=== PATIENT | male | born 1965 | race American Indian/Alaskan Native ===

== ENCOUNTER 2019-01-04 11:54 | Emergency (ER) | payer MEDICAID ==
[2019-01-04 13:05] VITALS: BP 129/93
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
== END 2019-01-04 13:35 | disposition home or self-care (01) ==
LOC: ED 11:54
DX: I10 Essential (primary) hypertension (principal); F17.200 Nicotine dependence, unspecified, uncomplicated; Z76.0 Encounter for issue of repeat prescription; Z79.82 Long term (current) use of aspirin; Z79.899 Other long term (current) drug therapy
CPT/HCPCS: 99282

== ENCOUNTER 2019-01-16 10:25 | Emergency (ER) | payer MEDICAID ==
[2019-01-16 10:35] VITALS: BP 146/97
--- NOTE | 2019-01-16 12:54 | Emergency Department Report ---
Chief Complaint: Extremity Injury, Upper Stated Complaint: ARM BROKEN LEFT Time Seen by Provider: 01/16/19 12:53 - HPI History of Present Illness: Mr. Gunter is a very pleasant 53 year old male with history of CVA, hypertension, cerebral aneurysm who presents with left upper extremity swelling. He explained to me that he had broken his left arm in 2 places. He has a sugar tong splint in place on my examination. He desires for the splint to be removed or replaced. I strongly encouraged him to follow up with our orthopedic surgeon this upcoming week. Distally his left hand is neurologically intact median ulnar radial nerve is intact. 2+ radial pulse. Hand is Soft without swelling. He moves the hand fluidly. Medical screening exam performed. He was discharged home. No evidence of acute emergent condition at this time. - Exam Vital Signs: Vital Signs 01/16/19 10:33 Temperature 98.5 F Pulse Rate 72 Respiratory 18 Rate Blood Pressure 146/97 O2 Sat by Pulse 99 Oximetry MSE screening note: Focused history and physical exam performed. Due to findings the following was ordered: ED Disposition for MSE Clinical Impression: Encounter for medical screening examination Disposition: Z-07 MED SCREENING EXAM-LEFT Is pt being admited?: No Does the pt Need Aspirin: No Condition: Stable Additional Instructions: Please see our orthopedic surgeon this upcoming week. You will need evaluation by a bone expert the cast can be removed. Referrals: VIET MARTINEZ MD [Staff Physician] - 3-5 Days
== END 2019-01-16 13:05 | disposition left against medical advice (07) ==
LOC: ED 10:25
DX: M79.89 Other specified soft tissue disorders (principal)
CPT/HCPCS: 99281

== ENCOUNTER 2019-04-17 10:12 | Inpatient (IN) | payer MEDICAID ==
[2019-04-17] MEDS ORDERED: SODIUM CHLORIDE 0.9% 1000 ML 1,000 ML IV ONE ×2 (10:42→11:58)
--- NOTE | 2019-04-17 10:48 | Emergency Department Report ---
ED Neuro Deficit HPI - General Chief Complaint: Neuro Symptoms/Deficit Stated Complaint: POSS CVA Time Seen by Provider: 04/17/19 10:35 Source: EMS Mode of arrival: Ambulatory Limitations: No Limitations - History of Present Illness Initial Comments: [facility] Date of Service: 04/17/2019 10:06:32 Impression: RO Acute Ischemic Stroke Comments: acute onset decreased LOC, slurred speech, and dysconjugate gaze - concerning for brainstem infarct. Outside time window for IV tpa. Recommend CTA head/neck. Mechanism of Stroke: Possible Thromboembolic Possible Cardioembolic Small Vessel Disease Metrics: Last Known Well: 04/12/2019 12:00:00 [employer] Notification Time: 04/17/2019 10:06:00 Arrival Time: 04/17/2019 10:12:00 Stamp Time: 04/17/2019 10:06:32 Time First Login Attempt: 04/17/2019 10:10:57 Video Start Time: 04/17/2019 10:10:57 Symptoms: confusion NIHSS Start Assessment Time: 04/17/2019 10:26:49 Patient is not a candidate for tPA. Patient was not deemed candidate for tPA thrombolytics because of Last Well Known Above 4.5 Hours. Video End Time: 04/17/2019 10:43:55 CT head showed no acute hemorrhage or acute core infarct. CT head was reviewed. Lower Likelihood of Large Vessel Occlusion but Following Stat Studies are Recommended CTA Head and Neck. ED Physician notified of diagnostic impression and management plan on 04/17/2019 10:43:55 Our recommendations are outlined below. Recommendations: Activate Stroke Protocol Admission/Order Set Stroke/Telemetry Floor Neuro Checks Bedside Swallow Eval DVT Prophylaxis IV Fluids, Normal Saline Head of Bed Below 30 Degrees Euglycemia and Avoid Hyperthermia (PRN Acetaminophen) start ASA if CT head Lipid Panel to Be Obtained, if Not Done in the Last Three Months Therapies: Physical Therapy, Occupational Therapy, Speech Therapy Assessment When Applicable Dysphaghia Screen: Swallow Evaluation, Bedside NPO Until Swallow Evaluation DVT prophylaxis: Lovenox or LMW Heparin Disposition: Follow up with Teleneurology Follow up Sign Out: Discussed with Emergency Department Provider History of Present Illness: Patient is a 54 year old Male. Patient was brought by EMS for symptoms of confusion 54 yo man with acute onset confusion and slurred speech noted by family. He was LSN 4-5 days ago and has been off balance since then. BG was 94. No focal weakness of his limbs. He has been off balance since yesterday and fell last night. He woke up at 0700 and was still off balance. He takes no blood thinners. He has a dysconjugate gaze from a previous stroke last year. CT head showed no acute hemorrhage or acute core infarct. CT head was reviewed. Last seen normal was within 4.5 hours. There is no history of hemorrhagic complications or intracranial hemorrhage. There is no history of Recent Anticoagulants. There is no history of recent major surgery. There is no history of recent stroke. Examination: 1A: Level of Consciousness - Requires repeated stimulation to arouse + 2 1B: Ask Month and Age - 1 Question Right + 1 1C: Blink Eyes & Squeeze Hands - Performs Both Tasks + 0 2: Test Horizontal Extraocular Movements - Normal + 0 3: Test Visual Tran - No Visual Loss + 0 4: Test Facial Palsy (Use Grimace if Obtunded) - Normal symmetry + 0 5A: Test Left Arm Motor Drift - No Drift for 10 Seconds + 0 5B: Test Right Arm Motor Drift - Drift, but doesn't hit bed + 1 6A: Test Left Leg Motor Drift - Drift, but doesn't hit bed + 1 6B: Test Right Leg Motor Drift - No Drift for 5 Seconds + 0 7: Test Limb Ataxia (FNF/Heel-Andrade) - No Ataxia + 0 8: Test Sensation - Normal; No sensory loss + 0 9: Test Language/Aphasia - Mild-Moderate Aphasia: Some Obvious Changes, Without Significant Limitation + 1 10: Test Dysarthria - Severe Dysarthria: Unintelligble Slurring or Out of Proportion to Aphasia + 2 11: Test Extinction/Inattention - No abnormality + 0 NIHSS Score: 8 Patient was informed the Neurology Consult would happen via TeleHealth consult by way of interactive audio and video telecommunications and consented to receiving care in this manner. Due to the immediate potential for life-threatening deterioration due to underlying acute neurologic illness, I spent 35 minutes providing critical care. This time includes time for face to face visit via telemedicine, review of medical records, imaging studies and discussion of findings with providers, the patient and/or family. Dr Jona Lemos [employer] Case [id number] - Related Data Home Medications: Home Medications Medication Instructions Recorded Confirmed Last Taken Aspirin [Adult Low Dose Aspirin EC] 81 mg PO DAILY 10/06/15 10/06/15 Unknown Lisinopril [Zestril] 40 mg PO DAILY 10/06/15 10/06/15 Unknown QUEtiapine [SEROquel] 200 mg PO QHS 10/06/15 10/06/15 Unknown traZODone [Desyrel] 50 mg PO QHS 10/06/15 10/06/15 Unknown Previous Rx's Medication Instructions Recorded Last Taken Type Famotidine [Pepcid] 20 mg PO BID #30 tablet 10/08/15 Unknown Rx Folic Acid [Folvite] 1 mg PO QDAY #30 tablet 10/08/15 Unknown Rx Nicotine [Habitrol] 21 mg TD QDAY@2200 #30 patch 10/08/15 Unknown Rx Thiamine [Vitamin B-1] 100 mg PO QDAY #30 tablet 10/08/15 Unknown Rx amLODIPine 10 mg PO QDAY #30 tablet 10/08/15 Unknown Rx cloNIDine [Catapres] 0.1 mg PO Q8H #90 tablet 10/08/15 Unknown Rx hydrALAZINE [Apresoline TAB] 50 mg PO Q8HR #90 tablet 10/08/15 Unknown Rx Aspirin EC [Halfprin EC] 81 mg PO QDAY #30 tablet. 01/04/19 Unknown Rx Chlorthalidone [Thalitone] 25 mg PO QDAY #30 tablet 01/04/19 Unknown Rx amLODIPine 10 mg PO DAILY #30 tab 01/04/19 Unknown Rx carvediloL [Coreg] 25 mg PO BID #60 tablet 01/04/19 Unknown Rx lisinopriL [Zestril TAB] 40 mg PO QDAY #30 tablet 01/04/19 Unknown Rx Allergies/Adverse Reactions: Allergies Allergy/AdvReac Type Severity Reaction Status Date / Time No Known Allergies Allergy Unverified 10/04/15 15:46 ED Review of Systems ROS: Stated complaint: POSS CVA Other details as noted in HPI ED Past Medical Hx - Past Medical History Hx Hypertension: Yes Hx CVA: Yes Additional medical history: Cerebral Aneurysm - Social History Smoking Status: Current Every Day Smoker Substance Use Type: None - Medications Home Medications: Home Medications Medication Instructions Recorded Confirmed Last Taken Type Aspirin [Adult Low Dose Aspirin EC] 81 mg PO DAILY 10/06/15 10/06/15 Unknown History Lisinopril [Zestril] 40 mg PO DAILY 10/06/15 10/06/15 Unknown History QUEtiapine [SEROquel] 200 mg PO QHS 10/06/15 10/06/15 Unknown History traZODone [Desyrel] 50 mg PO QHS 10/06/15 10/06/15 Unknown History Famotidine [Pepcid] 20 mg PO BID #30 tablet 10/08/15 Unknown Rx Folic Acid [Folvite] 1 mg PO QDAY #30 tablet 10/08/15 Unknown Rx Nicotine [Habitrol] 21 mg TD QDAY@2200 #30 patch 10/08/15 Unknown Rx Thiamine [Vitamin B-1] 100 mg PO QDAY #30 tablet 10/08/15 Unknown Rx amLODIPine 10 mg PO QDAY #30 tablet 10/08/15 Unknown Rx cloNIDine [Catapres] 0.1 mg PO Q8H #90 tablet 10/08/15 Unknown Rx hydrALAZINE [Apresoline TAB] 50 mg PO Q8HR #90 tablet 10/08/15 Unknown Rx Aspirin EC [Halfprin EC] 81 mg PO QDAY #30 tablet. 01/04/19 Unknown Rx Chlorthalidone [Thalitone] 25 mg PO QDAY #30 tablet 01/04/19 Unknown Rx amLODIPine 10 mg PO DAILY #30 tab 01/04/19 Unknown Rx carvediloL [Coreg] 25 mg PO BID #60 tablet 01/04/19 Unknown Rx lisinopriL [Zestril TAB] 40 mg PO QDAY #30 tablet 01/04/19 Unknown Rx ED Neuro Physical Exam - General Limitations: No Limitations Suspected Stroke: Yes - NIHSS Assessment Interval: Baseline 1a. Level of Consciousness: resp stimuli/obtunded 1b. LOC Questions: answers 1 question correctly 1c. LOC Commands: performs tasks correctly 2. Best Gaze: normal 3. Visual: no visual loss 4. Facial Palsy: normal symmetrical movement 5b. Motor Arm Right: drift 5a. Motor Arm Left: drift 6a. Motor Leg Left: no drift 6b. Motor Leg Right: no drift 7. Limb Ataxia: absent 8. Sensory: normal 9. Best Language: no aphasia 10. Dysarthria: severe dysarthria 11. Extinction/Inattention: no abnormality Total Score: 7 Stroke Severity: Moderate Stroke Critical care attestation.: If time is entered above; I have spent that time in minutes in the direct care of this critically ill patient, excluding procedure time. ED Disposition Clinical Impression: Stroke, Altered mental status Disposition: DC-09 OP ADMIT IP TO THIS HOSP Is pt being admited?: Yes Condition: Stable
[2019-04-17 10:59] LABS: Basophils % (Auto) 0.2 % (0.0-1.8); Eosinophils # (Auto) 0.4 K/mm3 (0.0-0.4); Eosinophils % (Auto) 5.6 % (0.0-4.3); Hematocrit 42.3 % (35.5-45.6); Hemoglobin 13.9 gm/dl (11.8-15.2); Lymphocytes # (Auto) 3.2 K/mm3 (1.2-5.4); Lymphocytes % (Auto) 50.3 % (13.4-35.0); Mean Corpuscular HGB Conc 33 % (32-34); Mean Corpuscular Volume 86 fl (84-94); Monocytes # (Auto) 0.6 K/mm3 (0.0-0.8); Monocytes % (Auto) 8.7 % (0.0-7.3); Platelet Count 201 K/mm3 (140-440); Red Blood Count 4.92 M/mm3 (3.65-5.03); Red Cell Distribution Width 15.6 % (13.2-15.2)
--- NOTE | 2019-04-17 11:06 | Cat Scan Report ---
CT HEAD WITHOUT CONTRAST HISTORY: MAIN: CODE STROKE CALL [phone] COMPARISON: None TECHNIQUE: CT imaging of the head was performed in the axial, sagittal, and coronal projections and bone algori thm in axial projection in the soft tissue algorithm. All CT scans at this location are performed using CT dose reduction for ALARA by means of automated e xposure control. CONTRAST: None. FINDINGS: Cerebral and Cerebellar Hemispheres: Mild diffuse cerebral atrophy is present. Deep white matter dise ase is noted. No evidence of mass or mass effect. No midline shift. No acute hemorrhage. No acute cortical infarction. No extra-axial fluid collection. Ventricles: Normal in size and configuration for age. Osseous Structures: No significant abnormality. Visualized Paranasal Sinuses: No significant abnormality. Additional Findings: None IMPRESSION: 1. No acute intracranial abnormality. NOTE: Acute infarct may not be visible by noncontrast CT. CRITICAL RESULT: code stroke Time of Discovery: 1035 hours Time of Communication: 1045 hours Licensed Practitioner Receiving Report: Dr. Whatley was notified of these findings personally by Dr. Alis baires Read Back Performed: Yes. Signer Name: Roverto Gutierrez MD Signed: 04/17/2019 11:01 AM Workstation Name: [id number]
[2019-04-17 11:12] LABS: INR 1.06 (0.87-1.13); Partial Thromboplastin Time 30.2 Sec. (24.2-36.6)
[2019-04-17 11:23] LABS: BUN/Creatinine Ratio 12; Blood Urea Nitrogen 40 mg/dL (9-20); Calcium 9.2 mg/dL (8.4-10.2); Hemolysis Index 16
[2019-04-17 11:27] LABS: Alanine Aminotransferase 8 units/L (7-56); Albumin 4.3 g/dL (3.9-5)
[2019-04-17 11:36] LABS: Bilirubin,Direct < 0.2 mg/dL (0-0.2)
--- NOTE | 2019-04-17 11:54 | Cat Scan Report ---
CTA neck without and with intravenous contrast material CLINICAL HISTORY: slurred speech TECHNIQUE: Following acquisition of a timing bolus 0.625 mm thick contiguous axial scans were obtained from aort ic arch to the skull base during rapid bolus intravenous contrast infusion. In addition to evaluation of axial source images multiplanar reconstructions were produced and reviewed for this report. 3 sanya ne MIP reconstructions were produced and reviewed. FINDINGS: Aorta: Visualized portions of the thoracic aorta have an unremarkable appearance. No abnormalities ar e seen at the origins of the great vessels. Brachiocephalic artery and right subclavian artery have a n unremarkable appearance. Left subclavian artery has an unremarkable appearance. Right carotid artery: Right common carotid artery has a normal appearance. Evaluation of the right ca rotid bifurcation reveals no indication of hemodynamically significant stenosis. Moderate soft plaque is present along the proximal R ICA. There is no indication of hemodynamically significant stenosis. There is no evidence of ulceration. Mid and distal segments of the R ICA have an unremarkable appear ance. Left carotid artery: Common carotid artery has an unremarkable appearance. Evaluation of the carotid bifurcation reveals no abnormality. Cervical portions of the LICA have an unremarkable appearance. Vertebral arteries: Mild dominance the right vertebral artery is noted. Both vertebral arteries contr ibute to the basilar artery origin. Calcified atherosclerotic plaque is observed along the course of the V4 segments of both vertebral arteries. The degree of stenosis, if any, is determined utilizing NASCET like criteria. In this case there is no indication of hemodynamically significant stenosis at the carotid bifurcations or elsewhere. Evaluation of the nonvascular soft tissue structures reveal no abnormality. There is no indication of cervical lymphadenopathy. No abnormalities are seen along the course of the airway. Visualized porti ons of the parotid glands and the submandibular salivary glands have a normal appearance. Thyroid gla nd has a normal appearance. Evaluation of the lung apices reveals no evidence of lung nodule or infil trate. Evaluation of the cervical spine is remarkable for cervical spondylosis. There is no indicatio n of central canal stenosis. IMPRESSION: 1. No indication of hemodynamically significant stenosis at the carotid bifurcations or elsewhere. 2. Soft atherosclerotic plaque is present at the right carotid bifurcation and along the proximal asp ect of the R ICA. No indication of ulceration or hemodynamically significant stenosis. Contrast dose report: Omnipaque 350: 100 ml, administered intravenously All CT examinations performed at this facility utilize modulated dose reduction, iterative reconstruc tion or weight-based dosing, as appropriate, to obtain a radiation dose which is as low as can reason ably be achieved. Signer Name: Rj Allen MD Signed: 04/17/2019 11:50 AM Workstation Name: [id number]
--- NOTE | 2019-04-17 11:59 | Cat Scan Report ---
CTA head with intravenous contrast CLINICAL HISTORY: slurred speech TECHNIQUE: 0.625 mm thick contiguous axial scans were obtained from the skull base to the skull vertex during ra pid bolus administration of intravenous contrast material. Multiplanar reconstructions were produced in the coronal and sagittal planes. In addition 3 plane MIP instructions were produced and reviewed f or this report. The axial source images and reconstructed images were reviewed for this report. All CT scans at this location are performed using CT dose reduction for ALARA by means of automated e xposure control. FINDINGS: Calcified atherosclerotic plaque is seen along the course of the cavernous segments of both internal carotid arteries. Similar findings are present at the V4 segments of the vertebral arteries. There is no indication of hemodynamically significant stenosis. The caliber of the intracranial vessels is normal throughout. There is no indication of intracranial stenosis or large vessel occlusion. There is no indication of vasculitis. There is no evidence of aneurysm or other vascular malformation. IMPRESSION: No indication of intracranial stenosis or large vessel occlusion. CONTRAST DOSE REPORT: Omnipaque 350: 100 ml administered intravenously. Signer Name: Rj Allen MD Signed: 04/17/2019 11:55 AM Workstation Name: [email or web address]
--- NOTE | 2019-04-17 12:15 | History and Physical Report ---
History of Present Illness Chief complaint: I think he had a stroke History of present illness: 54 YO Male with HTN, Depression, CVA, Nicotine Dependence, ETOH Dependence presents to the ED for evaluation. Patient was in his usual state of health upon waking from sleep this morning around 0800 hrs. Patient is lethargic and unable to provide detailed history. Patient history provided by family who is at bedside during exam and interview. As per family report- the patient was sitting on the porch with his sister when he developed an acute onset of confusion, as well as unintelligible speech with subsequent loss of consciousness and inability to ambulate. EMS was notified and upon arrival the patient was found to be in distress with a neurologic deficit. A code stroke was called and the patient was transported to [facility] for further evaluation and care. Patient seen and evaluated in the emergency department. Lab and imaging studies reviewed. Patient found to have clinical findings consistent with CVA a s well as acute kidney injury, and metabolic acidosis. Patient admitted to medical floor and initiated on CVA protocol for further evaluation and treatment due to increased risk of decompensation. Tele-neurology was consulted. Nephrology team was consulted in ED as well. No reports of fever, chills, chest pain, palpitations, trauma, nausea vomiting diarrhea, productive cough, known ill contacts, headaches, or recent ill contacts. Prior admission on 10/04/2015 reviewed. All medication listed at time of admission have been reconciled. Past History Past Medical History: hypertension, stroke, other (See HPI) Past Surgical History: No surgical history, Other (Reviewed) Social history: smoking, alcohol abuse Family history: hypertension Medications and Allergies Allergies Allergy/AdvReac Type Severity Reaction Status Date / Time No Known Allergies Allergy Unverified 10/04/15 15:46 Home Medications Medication Instructions Recorded Confirmed Last Taken Type Aspirin [Adult Low Dose Aspirin EC] 81 mg PO DAILY 10/06/15 04/17/19 Unknown History Lisinopril [Zestril] 40 mg PO DAILY 10/06/15 04/17/19 Unknown History QUEtiapine [SEROquel] 200 mg PO QHS 10/06/15 04/17/19 Unknown History Famotidine [Pepcid] 20 mg PO BID #30 tablet 10/08/15 04/17/19 Unknown Rx Nicotine [Habitrol] 21 mg TD QDAY@2200 #30 patch 10/08/15 04/17/19 Unknown Rx amLODIPine 10 mg PO QDAY #30 tablet 10/08/15 04/17/19 Unknown Rx cloNIDine [Catapres] 0.1 mg PO Q8H #90 tablet 10/08/15 04/17/19 Unknown Rx Chlorthalidone [Thalitone] 25 mg PO QDAY #30 tablet 01/04/19 04/17/19 Unknown Rx carvediloL [Coreg] 25 mg PO BID #60 tablet 01/04/19 04/17/19 Unknown Rx lisinopriL [Zestril TAB] 40 mg PO QDAY #30 tablet 01/04/19 04/17/19 Unknown Rx Active Meds: Active Medications Sodium Chloride (Nacl 0.9% 1000 Ml) 1,000 mls @ 999 mls/hr IV BOLUS ONE Stop: 04/17/19 12:58 Review of Systems ROS unobtainable: due to mental status Exam - Constitutional Vitals: Temp Pulse Resp BP Pulse Ox 97.4 F L 59 L 12 104/67 92 04/17/19 10:56 04/17/19 10:56 04/17/19 10:56 04/17/19 10:56 04/17/19 10:56 General appearance: Present: mild distress, obese - EENT Eyes: Present: miosis ENT: hearing intact, clear oral mucosa - Neck Neck: Present: supple, normal ROM - Respiratory Respiratory effort: normal Respiratory: bilateral: CTA - Cardiovascular Heart Sounds: Present: S1 & S2. Absent: rub, click - Extremities Extremities: pulses symmetrical, No edema Peripheral Pulses: within normal limits - Abdominal General gastrointestinal: Present: soft, non-tender, non-distended, normal bowel sounds Male genitourinary: Present: normal - Integumentary Integumentary: Present: clear, warm, dry - Musculoskeletal Musculoskeletal: generalized weakness - Psychiatric Psychiatric: no appropriate mood/affect, no intact judgment & insight, no memory intact - Neurologic Neurologic: moves all extremities, no gait normal Results - Labs CBC & Chem 7: 04/17/19 10:35 04/17/19 10:35 Labs: Abnormal lab results 04/17/19 04/17/19 04/17/19 Range/Units 10:35 10:35 10:35 RDW 15.6 H (13.2-15.2) % Lymph % (Auto) 50.3 H (13.4-35.0) % [place] % (Auto) 8.7 H (0.0-7.3) % Eos % (Auto) 5.6 H (0.0-4.3) % Seg Neutrophils % 35.2 L (40.0-70.0) % Thrombin Time 15.0 L (15.1-19.6) Sec. Carbon Dioxide 20 L (22-30) mmol/L BUN 40 H (9-20) mg/dL Creatinine 3.3 H (0.8-1.5) mg/dL Glucose 134 H (75-100) mg/dL Ammonia (25-60) umol/L 04/17/19 Range/Units 10:57 RDW (13.2-15.2) % Lymph % (Auto) (13.4-35.0) % [place] % (Auto) (0.0-7.3) % Eos % (Auto) (0.0-4.3) % Seg Neutrophils % (40.0-70.0) % Thrombin Time (15.1-19.6) Sec. Carbon Dioxide (22-30) mmol/L BUN (9-20) mg/dL Creatinine (0.8-1.5) mg/dL Glucose (75-100) mg/dL Ammonia 16.0 L (25-60) umol/L Assessment and Plan - Patient Problems (1) CVA (cerebral vascular accident) Current Visit: Yes Status: Acute Qualifiers: Laterality of affected vessel: unspecified Plan to address problem: CVA protocol: CT head, neuro check, aspiration precaution, physical therapy, Occupational Therapy, speech therapy, echo, carotid Doppler, antiplatelet therapy, tele-neurology consulted in ED, neurology consulted, lipid panel, statin therapy, hypercoagulable work-up: Factor V mutation, Antithrombin III protein C, protein S.. (2) Alcohol dependence Current Visit: Yes Status: Acute Qualifiers: Substance use status: uncomplicated Qualified Code(s): F10.20 - Alcohol dependence, uncomplicated Plan to address problem: Thiamine, folic acid, multivitamin, CIWA protocol. (3) Hypertension Current Visit: Yes Status: Acute Qualifiers: Hypertension type: essential hypertension Qualified Code(s): I10 - Essential (primary) hypertension Plan to address problem: Monitor blood pressure every shift, permissive hypertension overnight. (4) Obesity (BMI 30.0-34.9) Current Visit: Yes Status: Acute Plan to address problem: Balanced diet, increase physical activity at discharge. (5) Acute kidney injury Current Visit: Yes Status: Acute Plan to address problem: Nephrology consulted in ED, renal ultrasound, urine electrolytes, monitor urine output every shift, avoid nephrotoxic agents, repeat BMP in a.m. to monitor serum creatinine, IV fluid resuscitation. (6) Nicotine dependence Current Visit: Yes Status: Acute Qualifiers: Nicotine product type: cigarettes Substance use status: in withdrawal Qualified Code(s): F17.213 - Nicotine dependence, cigarettes, with withdrawal Plan to address problem: Smoking cessation counseling, supportive care. bahavior change counseling, +15min (7) DVT prophylaxis Current Visit: Yes Status: Acute Plan to address problem: SCD to bilateral lower extremities while in bed, prophylactic heparin.
--- NOTE | 2019-04-17 12:19 | Emergency Department Report ---
ED General Adult HPI - General Chief complaint: Neuro Symptoms/Deficit Stated complaint: POSS CVA Time Seen by Provider: 04/17/19 10:35 Source: EMS Mode of arrival: Ambulatory Limitations: No Limitations - History of Present Illness Initial comments: Patient is a 54-year-old F [place] male who has no known past medical history at the time of arrival presenting with lethargy slurred speech and several falls. Patient's sister called paramedics this morning because the patient seemed uncoordinated and fell. His speech was unintelligible. He suffered a fall before going to bed last night as well. The patient speech disturbance was new upon waking this morning. Patient shakes his head no that he does not use drugs and does not drink alcohol. He is eating he also shakes his head no regarding shortness of breath chest pain fever nausea vomiting or diarrhea. Severity scale (0 -10): 0 - Related Data Home Medications Medication Instructions Recorded Confirmed Last Taken Aspirin [Adult Low Dose Aspirin EC] 81 mg PO DAILY 10/06/15 10/06/15 Unknown Lisinopril [Zestril] 40 mg PO DAILY 10/06/15 10/06/15 Unknown QUEtiapine [SEROquel] 200 mg PO QHS 10/06/15 10/06/15 Unknown traZODone [Desyrel] 50 mg PO QHS 10/06/15 10/06/15 Unknown Previous Rx's Medication Instructions Recorded Last Taken Type Famotidine [Pepcid] 20 mg PO BID #30 tablet 10/08/15 Unknown Rx Folic Acid [Folvite] 1 mg PO QDAY #30 tablet 10/08/15 Unknown Rx Nicotine [Habitrol] 21 mg TD QDAY@2200 #30 patch 10/08/15 Unknown Rx Thiamine [Vitamin B-1] 100 mg PO QDAY #30 tablet 10/08/15 Unknown Rx amLODIPine 10 mg PO QDAY #30 tablet 10/08/15 Unknown Rx cloNIDine [Catapres] 0.1 mg PO Q8H #90 tablet 10/08/15 Unknown Rx hydrALAZINE [Apresoline TAB] 50 mg PO Q8HR #90 tablet 10/08/15 Unknown Rx Aspirin EC [Halfprin EC] 81 mg PO QDAY #30 tablet 01/04/19 Unknown Rx Chlorthalidone [Thalitone] 25 mg PO QDAY #30 tablet 01/04/19 Unknown Rx amLODIPine 10 mg PO DAILY #30 tab 01/04/19 Unknown Rx carvediloL [Coreg] 25 mg PO BID #60 tablet 01/04/19 Unknown Rx lisinopriL [Zestril TAB] 40 mg PO QDAY #30 tablet 01/04/19 Unknown Rx Allergies Allergy/AdvReac Type Severity Reaction Status Date / Time No Known Allergies Allergy Unverified 10/04/15 15:46 ED Review of Systems ROS: Stated complaint: POSS CVA Other details as noted in HPI Comment: All other systems reviewed and negative ED Past Medical Hx - Past Medical History Hx Hypertension: Yes Hx CVA: Yes Additional medical history: Cerebral Aneurysm - Social History Smoking Status: Current Every Day Smoker Substance Use Type: None - Medications Home Medications: Home Medications Medication Instructions Recorded Confirmed Last Taken Type Aspirin [Adult Low Dose Aspirin EC] 81 mg PO DAILY 10/06/15 10/06/15 Unknown History Lisinopril [Zestril] 40 mg PO DAILY 10/06/15 10/06/15 Unknown History QUEtiapine [SEROquel] 200 mg PO QHS 10/06/15 10/06/15 Unknown History traZODone [Desyrel] 50 mg PO QHS 10/06/15 10/06/15 Unknown History Famotidine [Pepcid] 20 mg PO BID #30 tablet 10/08/15 Unknown Rx Folic Acid [Folvite] 1 mg PO QDAY #30 tablet 10/08/15 Unknown Rx Nicotine [Habitrol] 21 mg TD QDAY@2200 #30 patch 10/08/15 Unknown Rx Thiamine [Vitamin B-1] 100 mg PO QDAY #30 tablet 10/08/15 Unknown Rx amLODIPine 10 mg PO QDAY #30 tablet 10/08/15 Unknown Rx cloNIDine [Catapres] 0.1 mg PO Q8H #90 tablet 10/08/15 Unknown Rx hydrALAZINE [Apresoline TAB] 50 mg PO Q8HR #90 tablet 10/08/15 Unknown Rx Aspirin EC [Halfprin EC] 81 mg PO QDAY #30 tablet. 01/04/19 Unknown Rx Chlorthalidone [Thalitone] 25 mg PO QDAY #30 tablet 01/04/19 Unknown Rx amLODIPine 10 mg PO DAILY #30 tab 01/04/19 Unknown Rx carvediloL [Coreg] 25 mg PO BID #60 tablet 01/04/19 Unknown Rx lisinopriL [Zestril TAB] 40 mg PO QDAY #30 tablet 01/04/19 Unknown Rx ED Physical Exam - General Limitations: No Limitations General appearance: in no apparent distress, lethargic - Head Head exam: Present: atraumatic, normocephalic - Eye Eye exam: Present: normal appearance, PERRL, EOMI - ENT ENT exam: Present: mucous membranes moist - Neck Neck exam: Present: normal inspection - Respiratory Respiratory exam: Present: normal lung sounds bilaterally. Absent: respiratory distress, wheezes, rales, rhonchi - Cardiovascular Cardiovascular Exam: Present: regular rate, normal rhythm. Absent: systolic murmur, diastolic murmur, rubs, gallop - GI/Abdominal GI/Abdominal exam: Present: soft, normal bowel sounds. Absent: distended, tenderness, guarding, rebound - Rectal Rectal exam: Present: deferred - Extremities Exam Extremities exam: Present: normal inspection - Back Exam Back exam: Present: normal inspection - Neurological Exam Neurological exam: Present: alert, altered, motor sensory deficit - Psychiatric Psychiatric exam: Present: normal affect, normal mood - Skin Skin exam: Present: warm, dry, intact, normal color. Absent: rash - Other Other exam information: Examination: 1A: Level of Consciousness - Requires repeated stimulation to arouse + 2 1B: Ask Month and Age - 1 Question Right + 1 1C: Blink Eyes & Squeeze Hands - Performs Both Tasks + 0 2: Test Horizontal Extraocular Movements - Normal + 0 3: Test Visual Tran - No Visual Loss + 0 4: Test Facial Palsy (Use Grimace if Obtunded) - Normal symmetry + 0 5A: Test Left Arm Motor Drift - No Drift for 10 Seconds + 0 5B: Test Right Arm Motor Drift - Drift, but doesn't hit bed + 1 6A: Test Left Leg Motor Drift - Drift, but doesn't hit bed + 1 6B: Test Right Leg Motor Drift - No Drift for 5 Seconds + 0 7: Test Limb Ataxia (FNF/Heel-Andrade) - No Ataxia + 0 8: Test Sensation - Normal; No sensory loss + 0 9: Test Language/Aphasia - Mild-Moderate Aphasia: Some Obvious Changes, Without Significant Limitation + 1 10: Test Dysarthria - Severe Dysarthria: Unintelligble Slurring or Out of Proportion to Aphasia + 2 11: Test Extinction/Inattention - No abnormality + 0 NIHSS Score: 8 ED Course Vital Signs 04/17/19 10:56 Temperature 97.4 F L Pulse Rate 59 L Respiratory 12 Rate Blood Pressure 104/67 [Left] O2 Sat by Pulse 92 Oximetry ED Medical Decision Making - Lab Data Result diagrams: 04/17/19 10:35 04/17/19 10:35 Lab Results 04/17/19 04/17/19 04/17/19 Range/Units 10:35 10:35 10:35 WBC 6.4 (4.5-11.0) K/mm3 RBC 4.92 (3.65-5.03) M/mm3 Hgb 13.9 (11.8-15.2) gm/dl Hct 42.3 (35.5-45.6) % MCV 86 (84-94) fl MCH 28 (28-32) pg MCHC 33 (32-34) % RDW 15.6 H (13.2-15.2) % Plt Count 201 (140-440) K/mm3 Lymph % (Auto) 50.3 H (13.4-35.0) % [place] % (Auto) 8.7 H (0.0-7.3) % Eos % (Auto) 5.6 H (0.0-4.3) % Baso % (Auto) 0.2 (0.0-1.8) % Lymph # 3.2 (1.2-5.4) K/mm3 [place] # 0.6 (0.0-0.8) K/mm3 Eos # 0.4 (0.0-0.4) K/mm3 Baso # 0.0 (0.0-0.1) K/mm3 Seg Neutrophils % 35.2 L (40.0-70.0) % Seg Neutrophils # 2.3 (1.8-7.7) K/mm3 PT 13.9 (12.2-14.9) Sec. INR 1.06 (0.87-1.13) APTT 30.2 (24.2-36.6) Sec. Thrombin Time (15.1-19.6) Sec. Sodium 139 (137-145) mmol/L Potassium 3.8 (3.6-5.0) mmol/L Chloride 102.2 (98-107) mmol/L Carbon Dioxide 20 L (22-30) mmol/L Anion Gap 21 mmol/L BUN 40 H (9-20) mg/dL Creatinine 3.3 H (0.8-1.5) mg/dL Estimated GFR 24 ml/min BUN/Creatinine Ratio 12 % Glucose 134 H (75-100) mg/dL Calcium 9.2 (8.4-10.2) mg/dL Total Bilirubin (0.1-1.2) mg/dL Direct Bilirubin (0-0.2) mg/dL AST (5-40) units/L ALT (7-56) units/L Alkaline Phosphatase (35-129) units/L Ammonia (25-60) umol/L Troponin T < 0.010 (0.00-0.029) ng/mL Total Protein (6.3-8.2) g/dL Albumin (3.9-5) g/dL Albumin/Globulin Ratio % Plasma/Serum Alcohol (0-0.07) % 04/17/19 04/17/19 04/17/19 Range/Units 10:35 10:57 10:57 WBC (4.5-11.0) K/mm3 RBC (3.65-5.03) M/mm3 Hgb (11.8-15.2) gm/dl Hct (35.5-45.6) % MCV (84-94) fl MCH (28-32) pg MCHC (32-34) % RDW (13.2-15.2) % Plt Count (140-440) K/mm3 Lymph % (Auto) (13.4-35.0) % [place] % (Auto) (0.0-7.3) % Eos % (Auto) (0.0-4.3) % Baso % (Auto) (0.0-1.8) % Lymph # (1.2-5.4) K/mm3 [place] # (0.0-0.8) K/mm3 Eos # (0.0-0.4) K/mm3 Baso # (0.0-0.1) K/mm3 Seg Neutrophils % (40.0-70.0) % Seg Neutrophils # (1.8-7.7) K/mm3 PT (12.2-14.9) Sec. INR (0.87-1.13) APTT (24.2-36.6) Sec. Thrombin Time 15.0 L (15.1-19.6) Sec. Sodium (137-145) mmol/L Potassium (3.6-5.0) mmol/L Chloride (98-107) mmol/L Carbon Dioxide (22-30) mmol/L Anion Gap mmol/L BUN (9-20) mg/dL Creatinine (0.8-1.5) mg/dL Estimated GFR ml/min BUN/Creatinine Ratio % Glucose (75-100) mg/dL Calcium (8.4-10.2) mg/dL Total Bilirubin 0.40 (0.1-1.2) mg/dL Direct Bilirubin < 0.2 (0-0.2) mg/dL AST 12 (5-40) units/L ALT 8 (7-56) units/L Alkaline Phosphatase 39 (35-129) units/L Ammonia (25-60) umol/L Troponin T (0.00-0.029) ng/mL Total Protein 7.2 (6.3-8.2) g/dL Albumin 4.3 (3.9-5) g/dL Albumin/Globulin Ratio 1.5 % Plasma/Serum Alcohol < 0.01 (0-0.07) % 04/17/19 Range/Units 10:57 WBC (4.5-11.0) K/mm3 RBC (3.65-5.03) M/mm3 Hgb (11.8-15.2) gm/dl Hct (35.5-45.6) % MCV (84-94) fl MCH (28-32) pg MCHC (32-34) % RDW (13.2-15.2) % Plt Count (140-440) K/mm3 Lymph % (Auto) (13.4-35.0) % [place] % (Auto) (0.0-7.3) % Eos % (Auto) (0.0-4.3) % Baso % (Auto) (0.0-1.8) % Lymph # (1.2-5.4) K/mm3 [place] # (0.0-0.8) K/mm3 Eos # (0.0-0.4) K/mm3 Baso # (0.0-0.1) K/mm3 Seg Neutrophils % (40.0-70.0) % Seg Neutrophils # (1.8-7.7) K/mm3 PT (12.2-14.9) Sec. INR (0.87-1.13) APTT (24.2-36.6) Sec. Thrombin Time (15.1-19.6) Sec. Sodium (137-145) mmol/L Potassium (3.6-5.0) mmol/L Chloride (98-107) mmol/L Carbon Dioxide (22-30) mmol/L Anion Gap mmol/L BUN (9-20) mg/dL Creatinine (0.8-1.5) mg/dL Estimated GFR ml/min BUN/Creatinine Ratio % Glucose (75-100) mg/dL Calcium (8.4-10.2) mg/dL Total Bilirubin (0.1-1.2) mg/dL Direct Bilirubin (0-0.2) mg/dL AST (5-40) units/L ALT (7-56) units/L Alkaline Phosphatase (35-129) units/L Ammonia 16.0 L (25-60) umol/L Troponin T (0.00-0.029) ng/mL Total Protein (6.3-8.2) g/dL Albumin (3.9-5) g/dL Albumin/Globulin Ratio % Plasma/Serum Alcohol (0-0.07) % - EKG Data -: EKG Interpreted by Nm EKG shows normal: sinus rhythm, axis, intervals, QRS complexes, ST-T waves Rate: normal - EKG Data Interpretation: normal EKG - Radiology Data HEAD WITHOUT CONTRAST HISTORY: MAIN: CODE STROKE CALL [phone] COMPARISON: None TECHNIQUE: CT imaging of the head was performed in the axial, sagittal, and coronal projections and bone algorithm in axial projection in the soft tissue algorithm. All CT scans at this location are performed using CT dose reduction for ALARA by means of automated exposure control. CONTRAST: None. FINDINGS: Cerebral and Cerebellar Hemispheres: Mild diffuse cerebral atrophy is present. Deep white matter disease is noted. No evidence of mass or mass effect. No midline shift. No acute hemorrhage. No acute cortical infarction. No extra-axial fluid collection. Ventricles: Normal in size and configuration for age. Osseous Structures: No significant abnormality. Visualized Paranasal Sinuses: No significant abnormality. Additional Findings: None IMPRESSION: 1. No acute intracranial abnormality. NOTE: Acute infarct may not be visible by noncontrast CT. CRITICAL RESULT: code stroke Time of Discovery: 1035 hours Time of Communication: 1045 hours Licensed Practitioner Receiving Report: Dr. Whatley was notified of these findings personally by Dr. Gutierrez Read Back Performed: Yes. Signer Name: Roverto Gutierrez MD Signed: 04/17/2019 11:01 AM Workstation Name: [id number] CTA head with intravenous contrast CLINICAL HISTORY: slurred speech TECHNIQUE: 0.625 mm thick contiguous axial scans were obtained from the skull base to the skull vertex during rapid bolus administration of intravenous contrast material. Multiplanar reconstructions were pr oduced in the coronal and sagittal planes. In addition 3 plane MIP instructions were produced and reviewed for this report. The axial source images and reconstructed images were reviewed for this report. All CT scans at this location are performed using CT dose reduction for ALARA by means of automated exposure control. FINDINGS: Calcified atherosclerotic plaque is seen along the course of the cavernous segments of both internal carotid arteries. Similar findings are present at the V4 segments of the vertebral arteries. There is no indication of hemodynamically significant stenosis. The caliber of the intracranial vessels is normal throughout. There is no indication of intracranial stenosis or large vessel occlusion. There is no indication of vasculitis. There is no evidence of aneurysm or other vascular malformation. IMPRESSION: No indication of intracranial stenosis or large vessel occlusion. CONTRAST DOSE REPORT: Omnipaque 350: 100 ml administered intravenously. Signer Name: Rj Allen MD Signed: 04/17/2019 11:55 AM Workstation Name: [id number] CTA neck without and with intravenous contrast material CLINICAL HISTORY: slurred speech TECHNIQUE: Following acquisition of a timing bolus 0.625 mm thick contiguous axial scans were obtained from aortic arch to the skull base during rapid bolus intravenous contrast infusion. In addition to evaluation of axial source images multiplanar reconstructions were produced and reviewed for this report. 3 plane MIP reconstructions were produced and reviewed. FINDINGS: Aorta: Visualized portions of the thoracic aorta have an unremarkable appearance. No abnormalities are seen at the origins of the great vessels. Brachiocephalic artery and right subclavian artery have an unremarkable appearance. Left subclavian artery has an unremarkable appearance. Right carotid artery: Right common carotid artery has a normal appearance. Evaluation of the right carotid bifurcation reveals no indication of hemodynamically significant stenosis. Moderate soft plaque is present along the proximal R ICA. There is no indication of hemodynamically significant stenosis. There is no evidence of ulceration. Mid and distal segments of the R ICA have an unremarkable appearance. Left carotid artery: Common carotid artery has an unremarkable appearance. Evaluation of the carotid bifurcation reveals no abnormality. Cervical portions of the LICA have an unremarkable appearance. Vertebral arteries: Mild dominance the right vertebral artery is noted. Both vertebral arteries contribute to the basilar artery origin. Calcified atherosclerotic plaque is observed along the course of the V4 segments of both vertebral arteries. The degree of stenosis, if any, is determined utilizing NASCET like criteria. In this case there is no indication of hemodynamically significant stenosis at the carotid bifurcations or elsewhere. Evaluation of the nonvascular soft tissue structures reveal no abnormality. There is no indication of cervical lymphadenopathy. No abnormalities are seen along the course of the airway. Visualized portions of the parotid glands and the submandibular salivary glands have a normal appearance. Thyroid gland has a normal appearance. Evaluation of the lung apices reveals no evidence of lung nodule or infiltrate. Evaluation of the cervical spine is remarkable for cervical spondylosis. There is no indication of central canal stenosis. IMPRESSION: 1. No indication of hemodynamically significant stenosis at the carotid bifurcations or elsewhere. 2. Soft atherosclerotic plaque is present at the right carotid bifurcation and along the proximal aspect of the R ICA. No indication of ulceration or hemodynamically significant stenosis. Contrast dose report: Omnipaque 350: 100 ml, administered intravenously All CT examinations performed at this facility utilize modulated dose reduction, iterative reconstruction or weight-based dosing, as appropriate, to obtain a radiation dose which is as low as can reasonably be achieved. Signer Name: Rj Allen MD Signed: 04/17/2019 11:50 AM Workstation Name: [id number] - Medical Decision Making Patient is a 54-year-old F [place] male who is presenting with slurred speech and generalized weakness and lethargy. Patient's initial blood pressure was in the hypotensive range. Blood pressure did respond well to IV fluids. Patient sister did arrive and gave some collateral information. Patient has been living with her for the past 3 months. Before that time the patient had some episodes of homelessness and is not taking very good care of himself. She states that at some point the patient was told he needed to be placed on dialysis and the patient refused stating that the dialysis is what killed 1 of his family members. Patient is blood pressure at the time of admission has improved however his mental status has remained the same. Patient does not meet criteria for TPA because of the timing of his symptoms. Critical care attestation.: If time is entered above; I have spent that time in minutes in the direct care of this critically ill patient, excluding procedure time. ED Disposition Clinical Impression: Acute renal injury, Dehydration Altered mental status Qualifiers: Altered mental status type: unspecified Qualified Code(s): R41.82 - Altered mental status, unspecified Stroke Qualifiers: CVA mechanism: unspecified Qualified Code(s): I63.9 - Cerebral infarction, unspecified Disposition: DC-09 OP ADMIT IP TO THIS HOSP Is pt being admited?: Yes Does the pt Need Aspirin: Yes Condition: Stable Time of Disposition: 12:20
[2019-04-17] MEDS ORDERED: MAGNESIUM HYDROXIDE (MOM) ORAL LIQD UDC PO PRN (12:40)
[2019-04-17] MEDS ORDERED: ACETAMINOPHEN 325 MG TAB PO PRN (12:40)
[2019-04-17] MEDS ORDERED: ONDANSETRON 4 MG/2 ML INJ IV PRN (12:40)
[2019-04-17] MEDS ORDERED: METOCLOPRAMIDE 10 MG TAB PO PRN (12:40)
[2019-04-17] MEDS ORDERED: ALBUTEROL 2.5 MG/3 ML NEBU IH PRN (12:40)
[2019-04-17] MEDS ORDERED: PROMETHAZINE 25 MG RECT SUPP PR PRN (12:40)
[2019-04-17] MEDS ORDERED: ASPIRIN 325 MG TAB PO SCH (13:00)
[2019-04-17] MEDS ORDERED: SODIUM CHLORIDE 0.9% 1000 ML 1,000 ML ONE (13:17)
[2019-04-17] MEDS: hydrALAZINE 25 MG TAB PO SCH ×2 (14:00→21:02)
[2019-04-17] MEDS: cloNIDine 0.1 MG TAB PO SCH ×2 (14:00→21:03)
[2019-04-17] MEDS ORDERED: LORazepam 2 MG/ML VIAL IV PRN (19:33)
[2019-04-17 20:31] LABS: Creatinine,Urine 107.2 mg/dL (0.1-20.0)
[2019-04-17 20:36] LABS: Amphetamine Screen,Urine PRESUMPTIVE NEGATIVE; Benzodiazepines Screen,Urine PRESUMPTIVE NEGATIVE; Cocaine Screen,Urine PRESUMPTIVE NEGATIVE; Methadone Screen,Urine PRESUMPTIVE NEGATIVE; Opiate Screen,Urine PRESUMPTIVE NEGATIVE
[2019-04-17 20:50] LABS: Cannabinoid Screen,Urine PRESUMPTIVE POSITIVE
[2019-04-17] MEDS: QUEtiapine 200 MG TAB PO SCH (20:59)
[2019-04-17] MEDS: traZODone 50 MG TAB PO SCH (20:59)
[2019-04-17] MEDS: carvediloL 25 MG TAB PO SCH (21:00)
[2019-04-17] MEDS: NICOTINE 21 MG/24 HR PATCH TD SCH (21:00)
[2019-04-17] MEDS: HEPARIN 5,000 UNIT/1 ML VIAL SUB-Q SCH (21:00)
[2019-04-17] MEDS: FAMOTIDINE 20 MG TAB PO SCH (21:09)
[2019-04-18] MEDS: hydrALAZINE 25 MG TAB PO SCH ×3 (06:07→22:18)
[2019-04-18] MEDS: cloNIDine 0.1 MG TAB PO SCH ×3 (06:07→22:00)
[2019-04-18] MEDS: SODIUM CHLORIDE 0.9% 1000 ML 1,000 ML IV SCH ×2 (06:21→08:07)
[2019-04-18 07:06] LABS: Calcium 8.5 mg/dL (8.4-10.2)
--- NOTE | 2019-04-18 08:49 | Progress Note ---
Assessment and Plan Assessment and plan: CVA. Continue stroke protocol. PT/OT. Neurology consultation pending. Follow-up carotid ultrasound and echocardiogram. Consider MRI per neurology recommendations. Continue secondary prevention with statin and aspirin. Follow-up hypercoagulable work-up. Acute renal failure. Etiology secondary to acute kidney injury likely from vasomotor nephropathy/dehydration. Follow-up renal ultrasound and nephrology consult. The patient's baseline creatinine 1.25 September 2015. Hypertension. Continue antihypertensive medications. Patient with permissive hypertension overnight. We will resume home medications. Hyperlipidemia. Continue statin. EtOH dependence. Continue thiamine folic acid multivitamin. CIWA protocol. Nicotine dependence. Patient has been counseled on cessation. DVT prophylaxis. Continue SCDs. History Interval history: 4 YO Male with HTN, Depression, CVA, Nicotine Dependence, ETOH Dependence admitted with diagnosis of CVA and acute renal failure secondary to acute kidney injury.. Hospitalist Physical - Constitutional Vitals: Temp Pulse Resp BP Pulse Ox 97.6 F 72 16 113/76 97 04/18/19 04:52 04/18/19 04:52 04/18/19 04:52 04/18/19 04:52 04/18/19 04:52 General appearance: Present: mild distress, obese - EENT Eyes: Present: PERRL, EOM intact ENT: hearing intact, clear oral mucosa, dentition normal - Neck Neck: Present: supple, normal ROM - Respiratory Respiratory effort: normal Respiratory: bilateral: CTA - Cardiovascular Rhythm: regular Heart Sounds: Present: S1 & S2. Absent: gallop, rub - Extremities Extremities: no ischemia, No edema, Full ROM - Abdominal General gastrointestinal: soft, non-tender, non-distended, normal bowel sounds - Integumentary Integumentary: Present: clear, warm, dry - Neurologic Neurologic: CNII-XII intact, moves all extremities, other (Dysarthria.) Results - Labs CBC & Chem 7: 04/17/19 10:35 04/18/19 06:34 Labs: Laboratory Last Values WBC 6.4 K/mm3 (4.5-11.0) 04/17/19 10:35 RBC 4.92 M/mm3 (3.65-5.03) 04/17/19 10:35 Hgb 13.9 gm/dl (11.8-15.2) 04/17/19 10:35 Hct 42.3 % (35.5-45.6) 04/17/19 10:35 MCV 86 fl (84-94) 04/17/19 10:35 MCH 28 pg (28-32) 04/17/19 10:35 MCHC 33 % (32-34) 04/17/19 10:35 RDW 15.6 % (13.2-15.2) H 04/17/19 10:35 Plt Count 201 K/mm3 (140-440) 04/17/19 10:35 Lymph % (Auto) 50.3 % (13.4-35.0) H 04/17/19 10:35 [place] % (Auto) 8.7 % (0.0-7.3) H 04/17/19 10:35 Eos % (Auto) 5.6 % (0.0-4.3) H 04/17/19 10:35 Baso % (Auto) 0.2 % (0.0-1.8) 04/17/19 10:35 Lymph # 3.2 K/mm3 (1.2-5.4) 04/17/19 10:35 [place] # 0.6 K/mm3 (0.0-0.8) 04/17/19 10:35 Eos # 0.4 K/mm3 (0.0-0.4) 04/17/19 10:35 Baso # 0.0 K/mm3 (0.0-0.1) 04/17/19 10:35 Seg Neutrophils % 35.2 % (40.0-70.0) L 04/17/19 10:35 Seg Neutrophils # 2.3 K/mm3 (1.8-7.7) 04/17/19 10:35 PT 13.9 Sec. (12.2-14.9) 04/17/19 10:35 INR 1.06 (0.87-1.13) 04/17/19 10:35 APTT 30.2 Sec. (24.2-36.6) 04/17/19 10:35 Thrombin Time 15.0 Sec. (15.1-19.6) L 04/17/19 10:35 Sodium 140 mmol/L (137-145) 04/18/19 06:34 Potassium 4.2 mmol/L (3.6-5.0) 04/18/19 06:34 Chloride 103.1 mmol/L (98-107) 04/18/19 06:34 Carbon Dioxide 23 mmol/L (22-30) 04/18/19 06:34 Anion Gap 18 mmol/L 04/18/19 06:34 BUN 40 mg/dL (9-20) H 04/18/19 06:34 Creatinine 2.6 mg/dL (0.8-1.5) H 04/18/19 06:34 Estimated GFR 31 ml/min 04/18/19 06:34 BUN/Creatinine Ratio 15 % 04/18/19 06:34 Glucose 149 mg/dL (75-100) H 04/18/19 06:34 Calcium 8.5 mg/dL (8.4-10.2) 04/18/19 06:34 Phosphorus 3.50 mg/dL (2.5-4.5) 04/18/19 06:34 Magnesium 2.70 mg/dL (1.7-2.3) H 04/18/19 06:34 Total Bilirubin 0.40 mg/dL (0.1-1.2) 04/17/19 10:57 Direct Bilirubin < 0.2 mg/dL (0-0.2) 04/17/19 10:57 AST 12 units/L (5-40) 04/17/19 10:57 ALT 8 units/L (7-56) 04/17/19 10:57 Alkaline Phosphatase 39 units/L (35-129) 04/17/19 10:57 Ammonia 16.0 umol/L (25-60) L 04/17/19 10:57 Troponin T < 0.010 ng/mL (0.00-0.029) 04/17/19 10:35 Total Protein 7.2 g/dL (6.3-8.2) 04/17/19 10:57 Albumin 4.3 g/dL (3.9-5) 04/17/19 10:57 Albumin/Globulin Ratio 1.5 % 04/17/19 10:57 Urine Creatinine 107.2 mg/dL (0.1-20.0) H 04/17/19 20:20 Urine Sodium 111 mmol/L 04/17/19 20:20 Urine Opiates Screen Presumptive negative 04/17/19 20:20 Urine Methadone Screen Presumptive negative 04/17/19 20:20 Ur Barbiturates Screen Presumptive negative 04/17/19 20:20 Ur Phencyclidine Scrn Presumptive negative 04/17/19 20:20 Ur Amphetamines Screen Presumptive negative 04/17/19 20:20 U Benzodiazepines Scrn Presumptive negative 04/17/19 20:20 Urine Cocaine Screen Presumptive negative 04/17/19 20:20 U Marijuana (THC) Screen Presumptive positive 04/17/19 20:20 Drugs of Abuse Note Disclamer 04/17/19 20:20 Plasma/Serum Alcohol < 0.01 % (0-0.07) 04/17/19 10:57 Active Medications - Current Medications Current Medications: Generic Name Dose Route Start Last Admin Trade Name Freq PRN Reason Stop Dose Admin Acetaminophen 650 mg 04/17/19 12:40 Tylenol PO Q4H PRN Pain, Mild (1-3) Albuterol 2.5 mg 04/17/19 12:40 Proventil IH Q3HRT PRN Shortness Of Breath Aspirin 325 mg 04/18/19 10:00 Aspirin PO QDAY ALEJANDRINA Atorvastatin Calcium 40 mg 04/17/19 22:00 04/17/19 20:59 Lipitor PO 40 mg QHS ALEJANDRINA Administration Bisacodyl 10 mg 04/17/19 12:40 Dulcolax [place] QDAY PRN Constipation Carvedilol 25 mg 04/17/19 22:00 04/17/19 21:00 Coreg PO 25 mg BID ALEJANDRINA Administration Clonidine HCl 0.1 mg 04/17/19 13:00 04/18/19 06:07 Catapres PO Not Given Q8H ALEJANDRINA Famotidine 20 mg 04/17/19 22:00 04/17/19 21:09 Pepcid PO 20 mg DAILY ALEJANDRINA Administration Folic Acid 1 mg 04/18/19 10:00 Folvite PO QDAY ALEJANDRINA Heparin Sodium (Porcine) 5,000 unit 04/17/19 22:00 04/17/19 21:00 Heparin SUB-Q 5,000 unit Q12HR ALEJANDRINA Administration Hydralazine HCl 50 mg 04/17/19 14:00 04/18/19 06:07 Apresoline PO Not Given Q8HR [facility] Sodium Chloride 1,000 mls @ 75 mls/hr 04/17/19 12:45 04/18/19 08:07 Nacl 0.9% 1000 Ml IV 75 mls/hr DIRECT ALEJANDRINA Administration Lorazepam 2 mg 04/17/19 19:33 Ativan IV Q1H PRN CIWA-Ar 8-15 Magnesium Hydroxide 30 ml 04/17/19 12:40 Milk Of Magnesia PO Q4H PRN Constipation Metoclopramide HCl 10 mg 04/17/19 12:40 Reglan PO Q6H PRN Nausea And Vomiting Nicotine 21 mg 04/17/19 22:00 04/17/19 21:00 Habitrol TD 21 mg QDAY@2200 ALEJANDRINA Administration Ondansetron HCl 4 mg 04/17/19 12:40 Zofran IV Q8H PRN Nausea And Vomiting Promethazine HCl 25 mg 04/17/19 12:40 Phenergan [place] Q6H PRN Nausea And Vomiting Quetiapine Fumarate 200 mg 04/17/19 22:00 04/17/19 20:59 Seroquel PO 200 mg QHS ALEJANDRINA Administration Sodium Chloride 10 ml 04/17/19 12:40 Sodium Chloride Flush Syringe 10 Ml IV PRN PRN LINE FLUSH Thiamine HCl 100 mg 04/18/19 10:00 Vitamin B-1 PO QDAY ALEJANDRINA Trazodone HCl 50 mg 04/17/19 22:00 04/17/19 20:59 Desyrel PO 50 mg QHS ALEJANDRINA Administration
[2019-04-18] MEDS ORDERED: LISINOPRIL 40 MG TAB PO SCH ×2 (10:00)
[2019-04-18] MEDS ORDERED: CHLORTHALIDONE 25 MG TAB PO SCH (10:00)
--- NOTE | 2019-04-18 11:16 | Consultation ---
History of Present Illness - Reason for Consult Consult date: 04/18/19 acute renal failure - History of Present Illness The patient is a 54 YO male with history significant for DM type 2, HTN, HLD, Depression, Bipolar, PTSD, CVA, Nicotine Dependence, ETOH Dependence, Polysubstance abuse, Seizure disorder and Legal blindness who presented to [facility] ED for AMS. Patient is a poor historian and there was no family members at the bedside. Patient became confused and associated unintelligible speech with subsequent loss of consciousness and inability to ambulate. A code stroke was called and the patient was transported to ED by EMS for further evaluation and care. Patient was admitted with acute CVA and acute kidney injury. No reports of fever, chills, chest pain, nausea, vomiting, diarrhea, dysuria, hematuria, productive cough, headaches, or recent ill contacts. Labs significant for Creat 3.3 and bicarb 20. Nephrology was consulted for further evaluation. Past History Past Medical History: diabetes, hypertension, hyperlipidemia, stroke, other (See HPI) Past Surgical History: No surgical history, Other (Reviewed) Social history: smoking, alcohol abuse Family history: hypertension Medications and Allergies Allergies Allergy/AdvReac Type Severity Reaction Status Date / Time No Known Allergies Allergy Unverified 10/04/15 15:46 Home Medications Medication Instructions Recorded Confirmed Last Taken Type Aspirin [Adult Low Dose Aspirin EC] 81 mg PO DAILY 10/06/15 04/17/19 Unknown History Lisinopril [Zestril] 40 mg PO DAILY 10/06/15 04/17/19 Unknown History QUEtiapine [SEROquel] 200 mg PO QHS 10/06/15 04/17/19 Unknown History Famotidine [Pepcid] 20 mg PO BID #30 tablet 10/08/15 04/17/19 Unknown Rx Nicotine [Habitrol] 21 mg TD QDAY@2200 #30 patch 10/08/15 04/17/19 Unknown Rx amLODIPine 10 mg PO QDAY #30 tablet 10/08/15 04/17/19 Unknown Rx cloNIDine [Catapres] 0.1 mg PO Q8H #90 tablet 10/08/15 04/17/19 Unknown Rx Chlorthalidone [Thalitone] 25 mg PO QDAY #30 tablet 01/04/19 04/17/19 Unknown Rx carvediloL [Coreg] 25 mg PO BID #60 tablet 01/04/19 04/17/19 Unknown Rx lisinopriL [Zestril TAB] 40 mg PO QDAY #30 tablet 01/04/19 04/17/19 Unknown Rx Active Meds: Active Medications Acetaminophen (Tylenol) 650 mg PO Q4H PRN PRN Reason: Pain, Mild (1-3) Albuterol (Proventil) 2.5 mg IH Q3HRT PRN PRN Reason: Shortness Of Breath Aspirin (Aspirin) 325 mg PO QDAY [facility] Atorvastatin Calcium (Lipitor) 40 mg PO QHS [facility] Last Admin: 04/17/19 20:59 Dose: 40 mg Documented by: Bisacodyl (Dulcolax) 10 mg [place] QDAY PRN PRN Reason: Constipation Carvedilol (Coreg) 25 mg PO BID [facility] [place] Last Admin: 04/17/19 21:00 Dose: 25 mg Documented by: Clonidine HCl (Catapres) 0.1 mg PO Q8H [facility] [place] Last Admin: 04/18/19 06:07 Dose: Not Given Documented by: Famotidine (Pepcid) 20 mg PO DAILY [facility] [place] Last Admin: 04/17/19 21:09 Dose: 20 mg Documented by: Folic Acid (Folvite) 1 mg PO QDAY [facility] Heparin Sodium (Porcine) (Heparin) 5,000 unit SUB-Q Q12HR [facility] [place] Last Admin: 04/17/19 21:00 Dose: 5,000 unit Documented by: Hydralazine HCl (Apresoline) 50 mg PO Q8HR [facility] [place] Last Admin: 04/18/19 06:07 Dose: Not Given Documented by: Sodium Chloride (Nacl 0.9% 1000 Ml) 1,000 mls @ 75 mls/hr IV DIRECT [facility] [place] Last Admin: 04/18/19 08:07 Dose: 75 mls/hr Documented by: Lorazepam (Ativan) 2 mg IV Q1H PRN PRN Reason: CIWA-Ar 8-15 Magnesium Hydroxide (Milk Of Magnesia) 30 ml PO Q4H PRN PRN Reason: Constipation Metoclopramide HCl (Reglan) 10 mg PO Q6H PRN PRN Reason: Nausea And Vomiting Nicotine (Habitrol) 21 mg TD QDAY@2200 [facility] Last Admin: 04/17/19 21:00 Dose: 21 mg Documented by: Ondansetron HCl (Zofran) 4 mg IV Q8H PRN PRN Reason: Nausea And Vomiting Promethazine HCl (Phenergan) 25 mg OR Q6H PRN PRN Reason: Nausea And Vomiting Quetiapine Fumarate (Seroquel) 200 mg PO QHS [facility] Last Admin: 04/17/19 20:59 Dose: 200 mg Documented by: Sodium Chloride (Sodium Chloride Flush Syringe 10 Ml) 10 ml IV PRN PRN PRN Reason: LINE FLUSH Thiamine HCl (Vitamin B-1) 100 mg PO QDAY [facility] Trazodone HCl (Desyrel) 50 mg PO QHS [facility] Last Admin: 04/17/19 20:59 Dose: 50 mg Documented by: Review of Systems Constitutional: no weight loss, no weight gain, no fever, no chills, no anore jamil, no weakness Cardiovascular: high blood pressure, no chest pain, no orthopnea, no edema, no syncope, no shortness of breath Respiratory: no cough, no hemoptysis, no shortness of breath Gastrointestinal: no abdominal pain, no nausea, no vomiting, no diarrhea, no melena Genitourinary Male: no dysuria, no hematuria Rectal: no bleeding Musculoskeletal: no muscle weakness Neurological: change in speech, change in mentation, confusion, no syncope Psychiatric: anxiety, confusion Exam - Vital Signs Vital signs: Vital Signs Pulse Resp 60 10 L 04/17/19 10:30 04/17/19 10:30 - General Appearance General appearance: well-developed, well-nourished, appears stated age, other (no distress) EENT: ATNC, PERRL, hearing intact Neck: Present: neck supple, trachea midline Respiratory: Clear to Ascultation Heart: regular, S1S2, no murmurs Gastrointestinal: Present: normoactive bowel sounds. Absent: tenderness, distended Integumentary: no rash, warm and dry Neurologic: no asterixis, alert and oriented x3, other (bilateral decreased eye sight) Musculoskeletal: Present: other (no edema) Psychiatric: cooperative Results - Lab Results 04/17/19 10:35 04/18/19 06:34 Most recent lab results Calcium 8.5 mg/dL (8.4-10.2) 04/18/19 06:34 Phosphorus 3.50 mg/dL (2.5-4.5) 04/18/19 06:34 Magnesium 2.70 mg/dL (1.7-2.3) H 04/18/19 06:34 Urine Creatinine 107.2 mg/dL (0.1-20.0) H 04/17/19 20:20 Urine Sodium 111 mmol/L 04/17/19 20:20 - Image Kidney/bladder ultrasound: report reviewed Assessment and Plan 1. Acute kidney injury: Acute kidney injury secondary to vasomotor nephropathy in the setting of hypotension. Creatinine level was 1.1 in 2016. Renal US negative for hydronephrosis. Patient also received IV contrast yesterday. Continue IV fluids. Renal function improving. Monitor renal function. Renal prognosis is guarded. Avoid nephrotoxic agents. Meds dosage based on GFR. 2. FEN: Metabolic acidosis, improving, monitor. Monitor lytes. 3. Acute CVA. 4. Hypertension: Monitor BP. 5. EtOH dependence: [facility] protocol. 6. Bipolar.
[2019-04-18] MEDS: FAMOTIDINE 20 MG TAB PO SCH (11:40)
[2019-04-18] MEDS: THIAMINE 100 MG TAB PO SCH (11:40)
[2019-04-18] MEDS: ASPIRIN 325 MG TAB PO SCH (11:40)
[2019-04-18] MEDS: carvediloL 25 MG TAB PO SCH ×2 (11:40→22:17)
[2019-04-18] MEDS: FOLIC ACID 1 MG TAB PO SCH (11:40)
[2019-04-18] MEDS: HEPARIN 5,000 UNIT/1 ML VIAL SUB-Q SCH ×2 (11:41→22:19)
--- NOTE | 2019-04-18 13:56 | Vascular Lab Report ---
TECHNICAL DATA: Imaging was performed from the base of the neck to the skull base using duplex sonography and color-f low imaging with emphasis on the carotid and vertebral arterial systems. RIGHT CAROTID ARTERY: The right internal carotid artery, right external carotid, and right common carotid artery all well i lindy and patent. Mild atherosclerotic plaque present at the carotid bifurcation. Right common carotid artery peak systolic velocity 77 cm/sec Right internal carotid artery peak systolic velocity 71.3 cm/sec Right internal carotid artery end diastolic velocity 32.6 cm/s Right internal carotid artery/right common carotid artery ratio 0.93 Vertebral artery flow is antegrade. LEFT CAROTID ARTERY The left internal carotid artery, left external carotid, and left common carotid artery all well imag ed and patent. Mild atherosclerotic plaque present at the carotid bifurcation. Left common carotid artery peak systolic velocity 91.6 cm/s Left internal carotid artery peak systolic velocity 73.9 cm/s Left internal carotid artery end diastolic velocity 33.5 cm/s Left internal carotid artery/right common carotid artery ratio 0.85 Normal antegrade flow of the vertebral arteries. Please see worksheet for all velocities. IMPRESSION: 1.Sonographic NASCET Index This study proposed the incorporation of distal ICA flow velocity information on the conventional car otid Doppler study improving the diagnostic accuracy of PSV 1. Internal carotid arteries demonstrate <15% stenosis: * deceleration spectral broadening with a peak systolic velocity (PSV) <125 cm/s 2. Normal common carotid arteries. 3. Normal external carotid arteries. 4. Antegrade flow both vertebral arteries. Sonographic NASCET Index This study proposed the incorporation of distal ICA flow velocity information on the conventional car otid Doppler study improving the diagnostic accuracy of PSV 1. * <15% stenosis: * deceleration spectral broadening with a peak systolic velocity (PSV) <125 cm/s * 16-49% stenosis: * pansystolic spectral broadening with a PSV <125 cm/s * 50-69% stenosis: * pansystolic spectral broadening with a PSV of >125 cm/s * and * end diastolic velocity (EDV) <110 cm/s or ICA/CCA PSV ratio >2 but <4 * 70-79% stenosis: * pansystolic spectral broadening with PSV >270 cm/s * or * EDV >110 cm/s * or * ICA/CCA PSV ratio >4 * 80-99% stenosis: EDV >140 cm/s * complete occlusion: no flow; terminal thump Signer Name: Roverto Gutierrez MD Signed: 04/18/2019 1:51 PM Workstation Name: [id number]
--- NOTE | 2019-04-18 14:23 | Ultrasound Report ---
ULTRASOUND RENAL INDICATION: rafael COMPARISON: No relevant prior imaging study available. FINDINGS: RIGHT KIDNEY: Size: 10.5 cm. Echogenicity: Normal. Cortical thickness: Normal. Stones: None. Hydronephrosis: None. Cyst or mass: None. LEFT KIDNEY: Size: 9.6 cm. Echogenicity: Normal. Cortical thickness: Normal. Stones: None. Hydronephrosis: None. Cyst or mass: None. Urinary Bladder: No significant abnormality. Free Fluid: None. Additional Findings: None. IMPRESSION: No acute sonographic abnormality of the kidneys Signer Name: Demond Ferguson MD Signed: 04/18/2019 2:19 PM Workstation Name: [email or web address][id number]
[2019-04-18] MEDS: traZODone 50 MG TAB PO SCH (22:17)
[2019-04-18] MEDS: NICOTINE 21 MG/24 HR PATCH TD SCH (22:17)
[2019-04-18] MEDS: QUEtiapine 200 MG TAB PO SCH (22:22)
[2019-04-19] MEDS: SODIUM CHLORIDE 0.9% 1000 ML 1,000 ML IV SCH (05:53)
[2019-04-19] MEDS: hydrALAZINE 25 MG TAB PO SCH ×3 (05:53→21:23)
[2019-04-19] MEDS: cloNIDine 0.1 MG TAB PO SCH ×3 (05:58→21:23)
[2019-04-19 08:06] LABS: Hematocrit 39.3 % (35.5-45.6); Hemoglobin 12.8 gm/dl (11.8-15.2); Mean Corpuscular HGB Conc 32 % (32-34); Mean Corpuscular Volume 86 fl (84-94); Platelet Count 187 K/mm3 (140-440); Red Blood Count 4.58 M/mm3 (3.65-5.03); Red Cell Distribution Width 15.3 % (13.2-15.2)
[2019-04-19 08:23] LABS: Calcium 9.1 mg/dL (8.4-10.2)
[2019-04-19 08:28] LABS: Bilirubin,Urine NEG (Negative); Blood,Urine NEG (Negative); Color,Urine Yellow (Yellow); Protein,Urine <15 mg/dL mg/dL (Negative); RBC,Urine < 1.0 /HPF (0.0-6.0); Urobilinogen,Urine < 2.0 mg/dL (<2.0)
[2019-04-19 09:43] LABS: Basophils % (Manual) 0 % (0.0-1.8); Total Cells Counted 100
[2019-04-19 09:44] LABS: Platelet Estimate Consistent w Auto; RBC Morphology Normal
--- NOTE | 2019-04-19 10:19 | Progress Note ---
Assessment and Plan Assessment and plan: CVA. Continue stroke protocol. Acute renal failure. Etiology secondary to acute kidney injury likely from vasomotor nephropathy/dehydration. Follow-up renal ultrasound and nephrology consult. The patient's baseline creatinine 1.25 September 2015. Hypertension. Continue antihypertensive medications. EtOH dependence. Continue thiamine folic acid multivitamin. CIWA protocol. Nicotine dependence. Patient has been counseled on cessation. DVT prophylaxis. Continue SCDs. 04/19-Renal US negative for hydronephrosis. Patient also received IV contrast yesterday. Pt still in need of IVF, F/U BMP/renal function. Renal function improving. Renal prognosis is guarded. Avoid nephrotoxic agents. With regards to CVA, Neurology consultation pending. Follow-up carotid ultrasound and echocardiogram. Consider MRI per neurology recommendations. Continue secondary prevention with statin and aspirin. Follow-up hypercoagulable work-up. PT/OT History Interval history: 4 YO Male with HTN, Depression, CVA, Nicotine Dependence, ETOH Dependence admitted with diagnosis of CVA and acute renal failure secondary to acute kidney injury.. Hospitalist Physical - Constitutional Vitals: Temp Pulse Resp BP Pulse Ox 97.5 F L 56 L 16 118/77 99 04/19/19 05:28 04/19/19 05:58 04/19/19 05:28 04/19/19 05:58 04/19/19 05:28 General appearance: Present: mild distress, obese - EENT Eyes: Present: PERRL, EOM intact ENT: hearing intact, clear oral mucosa, dentition normal - Neck Neck: Present: supple, normal ROM - Respiratory Respiratory effort: normal Respiratory: bilateral: CTA - Cardiovascular Rhythm: regular Heart Sounds: Present: S1 & S2. Absent: gallop, rub - Extremities Extremities: no ischemia, No edema, Full ROM - Abdominal General gastrointestinal: soft, non-tender, non-distended, normal bowel sounds - Integumentary Integumentary: Present: clear, warm, dry - Neurologic Neurologic: CNII-XII intact, moves all extremities Results - Labs CBC & Chem 7: 04/19/19 07:23 04/19/19 07:23 Labs: Laboratory Last Values WBC 4.0 K/mm3 (4.5-11.0) L 04/19/19 07:23 RBC 4.58 M/mm3 (3.65-5.03) 04/19/19 07:23 Hgb 12.8 gm/dl (11.8-15.2) 04/19/19 07:23 Hct 39.3 % (35.5-45.6) 04/19/19 07:23 MCV 86 fl (84-94) 04/19/19 07:23 MCH 28 pg (28-32) 04/19/19 07:23 MCHC 32 % (32-34) 04/19/19 07:23 RDW 15.3 % (13.2-15.2) H 04/19/19 07:23 Plt Count 187 K/mm3 (140-440) 04/19/19 07:23 Lymph % (Auto) [place] 04/19/19 07:23 [place] % (Auto) 8.7 % (0.0-7.3) H 04/17/19 10:35 Eos % (Auto) 5.6 % (0.0-4.3) H 04/17/19 10:35 Baso % (Auto) 0.2 % (0.0-1.8) 04/17/19 10:35 Lymph # 3.2 K/mm3 (1.2-5.4) 04/17/19 10:35 [place] # 0.6 K/mm3 (0.0-0.8) 04/17/19 10:35 Eos # 0.4 K/mm3 (0.0-0.4) 04/17/19 10:35 Baso # 0.0 K/mm3 (0.0-0.1) 04/17/19 10:35 Add Manual Diff Complete 04/19/19 07:23 Total Counted 100 04/19/19 07:23 Seg Neutrophils % [place] 04/19/19 07:23 Seg Neuts % (Manual) 36.0 % (40.0-70.0) L 04/19/19 07:23 Band Neutrophils % 0 % 04/19/19 07:23 Lymphocytes % (Manual) 50.0 % (13.4-35.0) H 04/19/19 07:23 Reactive Lymphs % (Man) 0 % 04/19/19 07:23 Monocytes % (Manual) 8.0 % (0.0-7.3) H 04/19/19 07:23 Eosinophils % (Manual) 6.0 % (0.0-4.3) H 04/19/19 07:23 Basophils % (Manual) 0 % (0.0-1.8) 04/19/19 07:23 Metamyelocytes % 0 % 04/19/19 07:23 Myelocytes % 0 % 04/19/19 07:23 Promyelocytes % 0 % 04/19/19 07:23 Blast Cells % 0 % 04/19/19 07:23 Nucleated RBC % Not Reportable 04/19/19 07:23 Seg Neutrophils # 2.3 K/mm3 (1.8-7.7) 04/17/19 10:35 Seg Neutrophils # Man 1.4 K/mm3 (1.8-7.7) L 04/19/19 07:23 Band Neutrophils # 0.0 K/mm3 04/19/19 07:23 Lymphocytes # (Manual) 2.0 K/mm3 (1.2-5.4) 04/19/19 07:23 Abs React Lymphs (Man) 0.0 K/mm3 04/19/19 07:23 Monocytes # (Manual) 0.3 K/mm3 (0.0-0.8) 04/19/19 07:23 Eosinophils # (Manual) 0.2 K/mm3 (0.0-0.4) 04/19/19 07:23 Basophils # (Manual) 0.0 K/mm3 (0.0-0.1) 04/19/19 07:23 Metamyelocytes # 0.0 K/mm3 04/19/19 07:23 Myelocytes # 0.0 K/mm3 04/19/19 07:23 Promyelocytes # 0.0 K/mm3 04/19/19 07:23 Blast Cells # 0.0 K/mm3 04/19/19 07:23 WBC Morphology Not Reportable 04/19/19 07:23 Hypersegmented Neuts Not Reportable 04/19/19 07:23 Hyposegmented Neuts Not Reportable 04/19/19 07:23 Hypogranular Neuts Not Reportable 04/19/19 07:23 Smudge Cells Not Reportable 04/19/19 07:23 Toxic Granulation Not Reportable 04/19/19 07:23 Toxic Vacuolation Not Reportable 04/19/19 07:23 Dohle Bodies Not Reportable 04/19/19 07:23 Pelger-Huet Anomaly Not Reportable 04/19/19 07:23 Noel Rods Not Reportable 04/19/19 07:23 Platelet Estimate Consistent w auto 04/19/19 07:23 Clumped Platelets Not Reportable 04/19/19 07:23 Plt Clumps, EDTA Not Reportable 04/19/19 07:23 Large Platelets Not Reportable 04/19/19 07:23 Giant Platelets Not Reportable 04/19/19 07:23 Platelet Satelliting Not Reportable 04/19/19 07:23 Plt Morphology Comment Not Reportable 04/19/19 07:23 RBC Morphology Normal 04/19/19 07:23 Dimorphic RBCs Not Reportable 04/19/19 07:23 Polychromasia Not Reportable 04/19/19 07:23 Hypochromasia Not Reportable 04/19/19 07:23 Poikilocytosis Not Reportable 04/19/19 07:23 Anisocytosis Not Reportable 04/19/19 07:23 Microcytosis Not Reportable 04/19/19 07:23 Macrocytosis Not Reportable 04/19/19 07:23 Spherocytes Not Reportable 04/19/19 07:23 Pappenheimer Bodies Not Reportable 04/19/19 07:23 Sickle Cells Not Reportable 04/19/19 07:23 Target Cells Not Reportable 04/19/19 07:23 Tear Drop Cells Not Reportable 04/19/19 07:23 Ovalocytes Not Reportable 04/19/19 07:23 Helmet Cells Not Reportable 04/19/19 07:23 [place] Bodies Not Reportable 04/19/19 07:23 [place] Rings Not Reportable 04/19/19 07:23 Jacob Cells Not Reportable 04/19/19 07:23 Bite Cells Not Reportable 04/19/19 07:23 Crenated Cell Not Reportable 04/19/19 07:23 Elliptocytes Not Reportable 04/19/19 07:23 Acanthocytes (Spur) Not Reportable 04/19/19 07:23 Rouleaux Not Reportable 04/19/19 07:23 Hemoglobin C Crystals Not Reportable 04/19/19 07:23 Schistocytes Not Reportable 04/19/19 07:23 Malaria parasites Not Reportable 04/19/19 07:23 Demarco Bodies Not Reportable 04/19/19 07:23 Hem Pathologist Commnt No 04/19/19 07:23 PT 13.9 Sec. (12.2-14.9) 04/17/19 10:35 INR 1.06 (0.87-1.13) 04/17/19 10:35 APTT 30.2 Sec. (24.2-36.6) 04/17/19 10:35 Thrombin Time 15.0 Sec. (15.1-19.6) L 04/17/19 10:35 Sodium 143 mmol/L (137-145) 04/19/19 07:23 Potassium 4.1 mmol/L (3.6-5.0) 04/19/19 07:23 Chloride 105.2 mmol/L (98-107) 04/19/19 07:23 Carbon Dioxide 24 mmol/L (22-30) 04/19/19 07:23 Anion Gap 18 mmol/L 04/19/19 07:23 BUN 27 mg/dL (9-20) H 04/19/19 07:23 Creatinine 1.8 mg/dL (0.8-1.5) H 04/19/19 07:23 Estimated GFR 48 ml/min 04/19/19 07:23 BUN/Creatinine Ratio 15 % 04/19/19 07:23 Glucose 112 mg/dL (75-100) H 04/19/19 07:23 Calcium 9.1 mg/dL (8.4-10.2) 04/19/19 07:23 Phosphorus 3.50 mg/dL (2.5-4.5) 04/18/19 06:34 Magnesium 2.70 mg/dL (1.7-2.3) H 04/18/19 06:34 Total Bilirubin 0.40 mg/dL (0.1-1.2) 04/17/19 10:57 Direct Bilirubin < 0.2 mg/dL (0-0.2) 04/17/19 10:57 AST 12 units/L (5-40) 04/17/19 10:57 ALT 8 units/L (7-56) 04/17/19 10:57 Alkaline Phosphatase 39 units/L (35-129) 04/17/19 10:57 Ammonia 16.0 umol/L (25-60) L 04/17/19 10:57 Troponin T < 0.010 ng/mL (0.00-0.029) 04/17/19 10:35 Total Protein 7.2 g/dL (6.3-8.2) 04/17/19 10:57 Albumin 4.3 g/dL (3.9-5) 04/17/19 10:57 Albumin/Globulin Ratio 1.5 % 04/17/19 10:57 Urine Color Yellow (Yellow) 04/19/19 07:00 Urine Turbidity Clear (Clear) 04/19/19 07:00 Urine pH 5.0 (5.0-7.0) 04/19/19 07:00 Ur Specific [place] 1.016 (1.003-1.030) 04/19/19 07:00 Urine Protein <15 mg/dl mg/dL (Negative) 04/19/19 07:00 Urine Glucose (UA) Neg mg/dL (Negative) 04/19/19 07:00 Urine Ketones Neg mg/dL (Negative) 04/19/19 07:00 Urine Blood Neg (Negative) 04/19/19 07:00 Urine Nitrite Neg (Negative) 04/19/19 07:00 Urine Bilirubin Neg (Negative) 04/19/19 07:00 Urine Urobilinogen < 2.0 mg/dL (<2.0) 04/19/19 07:00 Ur Leukocyte Esterase Neg (Negative) 04/19/19 07:00 Urine WBC (Auto) 1.0 /HPF (0.0-6.0) 04/19/19 07:00 Urine RBC (Auto) < 1.0 /HPF (0.0-6.0) 04/19/19 07:00 U Epithel Cells (Auto) < 1.0 /HPF (0-13.0) 04/19/19 07:00 Urine Creatinine 107.2 mg/dL (0.1-20.0) H 04/17/19 20:20 Urine Sodium 111 mmol/L 04/17/19 20:20 Urine Opiates Screen Presumptive negative 04/17/19 20:20 Urine Methadone Screen Presumptive negative 04/17/19 20:20 Ur Barbiturates Screen Presumptive negative 04/17/19 20:20 Ur Phencyclidine Scrn Presumptive negative 04/17/19 20:20 Ur Amphetamines Screen Presumptive negative 04/17/19 20:20 U Benzodiazepines Scrn Presumptive negative 04/17/19 20:20 Urine Cocaine Screen Presumptive negative 04/17/19 20:20 U Marijuana (THC) Screen Presumptive positive 04/17/19 20:20 Drugs of Abuse Note Disclamer 04/17/19 20:20 Plasma/Serum Alcohol < 0.01 % (0-0.07) 04/17/19 10:57 Active Medications - Current Medications Current Medications: Generic Name Dose Route Start Last Admin Trade Name Freq PRN Reason Stop Dose Admin Acetaminophen 650 mg 04/17/19 12:40 Tylenol PO Q4H PRN Pain, Mild (1-3) Albuterol 2.5 mg 04/17/19 12:40 Proventil IH Q3HRT PRN Shortness Of Breath Aspirin 325 mg 04/18/19 10:00 04/18/19 11:40 Aspirin PO 325 mg QDAY ALEJANDRINA Administration Atorvastatin Calcium 40 mg 04/17/19 22:00 04/18/19 22:18 Lipitor PO 40 mg QHS ALEJANDRINA Administration Bisacodyl 10 mg 04/17/19 12:40 Dulcolax [place] QDAY PRN Constipation Carvedilol 25 mg 04/17/19 22:00 04/18/19 22:17 Coreg PO 25 mg BID ALEJANDRINA Administration Clonidine HCl 0.1 mg 04/17/19 13:00 04/19/19 05:58 Catapres PO 0.1 mg Q8H ALEJANDRINA Administration Famotidine 20 mg 04/17/19 22:00 04/18/19 11:40 Pepcid PO 20 mg DAILY ALEJANDRINA Administration Folic Acid 1 mg 04/18/19 10:00 04/18/19 11:40 Folvite PO 1 mg QDAY ALEJANDRINA Administration Heparin Sodium (Porcine) 5,000 unit 04/17/19 22:00 04/18/19 22:19 Heparin SUB-Q 5,000 unit Q12HR ALEJANDRINA Administration Hydralazine HCl 50 mg 04/17/19 14:00 04/19/19 05:53 Apresoline PO 50 mg Q8HR ALEJANDRINA Administration Sodium Chloride 1,000 mls @ 75 mls/hr 04/17/19 12:45 04/19/19 05:53 Nacl 0.9% 1000 Ml IV 75 mls/hr DIRECT ALEJANDRINA Administration Lorazepam 2 mg 04/17/19 19:33 Ativan IV Q1H PRN CIWA-Ar 8-15 Magnesium Hydroxide 30 ml 04/17/19 12:40 Milk Of Magnesia PO Q4H PRN Constipation Metoclopramide HCl 10 mg 04/17/19 12:40 Reglan PO Q6H PRN Nausea And Vomiting Nicotine 21 mg 04/17/19 22:00 04/18/19 22:17 Habitrol TD 21 mg QDAY@2200 ALEJANDRINA Administration Ondansetron HCl 4 mg 04/17/19 12:40 Zofran IV Q8H PRN Nausea And Vomiting Promethazine HCl 25 mg 04/17/19 12:40 Phenergan [place] Q6H PRN Nausea And Vomiting Quetiapine Fumarate 200 mg 04/17/19 22:00 04/18/19 22:22 Seroquel PO 200 mg QHS ALEJANDRINA Administration Sodium Chloride 10 ml 04/17/19 12:40 Sodium Chloride Flush Syringe 10 Ml IV PRN PRN LINE FLUSH Thiamine HCl 100 mg 04/18/19 10:00 04/18/19 11:40 Vitamin B-1 PO 100 mg QDAY ALEJANDRINA Administration Trazodone HCl 50 mg 04/17/19 22:00 04/18/19 22:17 Desyrel PO 50 mg QHS ALEJANDRINA Administration
[2019-04-19] MEDS: THIAMINE 100 MG TAB PO SCH (10:56)
[2019-04-19] MEDS: FOLIC ACID 1 MG TAB PO SCH (10:56)
[2019-04-19] MEDS: FAMOTIDINE 20 MG TAB PO SCH (10:56)
[2019-04-19] MEDS: carvediloL 25 MG TAB PO SCH ×2 (10:57→21:18)
[2019-04-19] MEDS: ASPIRIN 325 MG TAB PO SCH (10:58)
[2019-04-19] MEDS: HEPARIN 5,000 UNIT/1 ML VIAL SUB-Q SCH ×2 (11:00→21:19)
--- NOTE | 2019-04-19 12:53 | Progress Note ---
Assessment and Plan 1. Acute kidney injury: Acute kidney injury secondary to vasomotor nephropathy in the setting of hypotension. Creatinine level was 1.1 in 2016. Renal US negative for hydronephrosis. Patient also received IV contrast 04/17. Continue IV fluids. Renal function improving. Monitor renal function. Renal prognosis is guarded. Avoid nephrotoxic agents. Meds dosage based on GFR. 2. FEN: Metabolic acidosis, improved, monitor. Monitor lytes. 3. Acute CVA. 4. Hypertension: Hydralazine increased to 100 mg TID. Stop IV fluids. 5. EtOH dependence: CIWA protocol. 6. Bipolar. Subjective Interval history: Patient was seen and examined at the bedside. Sister and niece at the bedside. Doing ok. - General Appearance General appearance: well-developed, well-nourished, appears stated age, no distress HEENT: ATNC, ANTHONY, hearing intact Neck: Present: neck supple, trachea midline Respiratory: Clear to Ascultation Heart: regular, S1S2, no murmurs Gastrointestinal: soft, normoactive bowel sounds, not tender, not distended Integumentary: no rash, warm and dry Neurologic: no asterixis, alert and oriented x3, bilateral decreased eye sight Ext: no edema Psychiatric: cooperative Subjective Date of service: 04/19/19 Objective - Vital Signs Vital signs: Vital Signs - 12hr 04/19/19 04/19/19 04/19/19 05:28 05:53 05:58 Temperature 97.5 F L Pulse Rate 58 L 58 L 56 L Respiratory 16 Rate Blood Pressure 118/77 118/77 118/77 O2 Sat by Pulse 99 Oximetry 04/19/19 04/19/19 04/19/19 10:56 10:57 10:58 Temperature Pulse Rate Respiratory Rate Blood Pressure 175/109 156/107 156/107 O2 Sat by Pulse Oximetry 04/19/19 11:37 Temperature 98.5 F Pulse Rate 71 Respiratory 19 Rate Blood Pressure 167/108 O2 Sat by Pulse 100 Oximetry - Lab 04/19/19 07:23 04/19/19 07:23 Most recent lab results Calcium 9.1 mg/dL (8.4-10.2) 04/19/19 07:23 Phosphorus 3.50 mg/dL (2.5-4.5) 04/18/19 06:34 Magnesium 2.70 mg/dL (1.7-2.3) H 04/18/19 06:34 Urine Creatinine 107.2 mg/dL (0.1-20.0) H 04/17/19 20:20 Urine Sodium 111 mmol/L 04/17/19 20:20 Medications & Allergies - Medications Allergies/Adverse Reactions: Allergies No Known Allergies Allergy (Unverified 10/04/15 15:46) Home Medications: Home Medications Medication Instructions Recorded Confirmed Last Taken Type Aspirin [Adult Low Dose Aspirin EC] 81 mg PO DAILY 10/06/15 04/17/19 Unknown History Lisinopril [Zestril] 40 mg PO DAILY 10/06/15 04/17/19 Unknown History QUEtiapine [SEROquel] 200 mg PO QHS 10/06/15 04/17/19 Unknown History Famotidine [Pepcid] 20 mg PO BID #30 tablet 10/08/15 04/17/19 Unknown Rx Nicotine [Habitrol] 21 mg TD QDAY@2200 #30 patch 10/08/15 04/17/19 Unknown Rx amLODIPine 10 mg PO QDAY #30 tablet 10/08/15 04/17/19 Unknown Rx cloNIDine [Catapres] 0.1 mg PO Q8H #90 tablet 10/08/15 04/17/19 Unknown Rx Chlorthalidone [Thalitone] 25 mg PO QDAY #30 tablet 01/04/19 04/17/19 Unknown Rx carvediloL [Coreg] 25 mg PO BID #60 tablet 01/04/19 04/17/19 Unknown Rx lisinopriL [Zestril TAB] 40 mg PO QDAY #30 tablet 01/04/19 04/17/19 Unknown Rx Active Medications: Generic Name Dose Route Start Last Admin Trade Name Freq PRN Reason Stop Dose Admin Acetaminophen 650 mg 04/17/19 12:40 Tylenol PO Q4H PRN Pain, Mild (1-3) Albuterol 2.5 mg 04/17/19 12:40 Proventil IH Q3HRT PRN Shortness Of Breath Aspirin 325 mg 04/18/19 10:00 04/19/19 10:58 Aspirin PO 325 mg QDAY ALEJANDRINA Administration Atorvastatin Calcium 40 mg 04/17/19 22:00 04/18/19 22:18 Lipitor PO 40 mg QHS ALEJANDRINA Administration Bisacodyl 10 mg 04/17/19 12:40 Dulcolax [place] QDAY PRN Constipation Carvedilol 25 mg 04/17/19 22:00 04/19/19 10:57 Coreg PO 25 mg BID ALEJANDRINA Administration Clonidine HCl 0.1 mg 04/17/19 13:00 04/19/19 05:58 Catapres PO 0.1 mg Q8H ALEJANDRINA Administration Famotidine 20 mg 04/17/19 22:00 04/19/19 10:56 Pepcid PO 20 mg DAILY ALEJANDRINA Administration Folic Acid 1 mg 04/18/19 10:00 04/19/19 10:56 Folvite PO 1 mg QDAY ALEJANDRINA Administration Heparin Sodium (Porcine) 5,000 unit 04/17/19 22:00 04/19/19 11:00 Heparin SUB-Q 5,000 unit Q12HR ALEJANDRINA Administration Hydralazine HCl 50 mg 04/17/19 14:00 04/19/19 05:53 Apresoline PO 50 mg Q8HR ALEJANDRINA Administration Sodium Chloride 1,000 mls @ 75 mls/hr 04/17/19 12:45 04/19/19 05:53 Nacl 0.9% 1000 Ml IV 75 mls/hr DIRECT ALEJANDRINA Administration Lorazepam 2 mg 04/17/19 19:33 Ativan IV Q1H PRN CIWA-Ar 8-15 Magnesium Hydroxide 30 ml 04/17/19 12:40 Milk Of Magnesia PO Q4H PRN Constipation Metoclopramide HCl 10 mg 04/17/19 12:40 Reglan PO Q6H PRN Nausea And Vomiting Nicotine 21 mg 04/17/19 22:00 04/18/19 22:17 Habitrol TD 21 mg QDAY@2200 ALEJANDRINA Administration Ondansetron HCl 4 mg 04/17/19 12:40 Zofran IV Q8H PRN Nausea And Vomiting Promethazine HCl 25 mg 04/17/19 12:40 Phenergan [place] Q6H PRN Nausea And Vomiting Quetiapine Fumarate 200 mg 04/17/19 22:00 04/18/19 22:22 Seroquel PO 200 mg QHS ALEJANDRINA Administration Sodium Chloride 10 ml 04/17/19 12:40 Sodium Chloride Flush Syringe 10 Ml IV PRN PRN LINE FLUSH Thiamine HCl 100 mg 04/18/19 10:00 02/24/20 10:56 Vitamin B-1 PO 100 mg QDAY ALEJANDRINA Administration Trazodone HCl 50 mg 04/17/19 22:00 04/18/19 22:17 Desyrel PO 50 mg QHS ALEJANDRINA Administration
[2019-04-19 13:05] LABS: Chol/HDL Ratio 3.39 %
[2019-04-19] MEDS: traZODone 50 MG TAB PO SCH (21:18)
[2019-04-19] MEDS: QUEtiapine 200 MG TAB PO SCH (21:18)
[2019-04-19] MEDS: NICOTINE 21 MG/24 HR PATCH TD SCH (21:23)
[2019-04-20 05:24] LABS: Calcium 9.2 mg/dL (8.4-10.2)
[2019-04-20] MEDS: cloNIDine 0.1 MG TAB PO SCH ×2 (06:25→18:19)
[2019-04-20] MEDS: hydrALAZINE 25 MG TAB PO SCH ×3 (06:26→22:23)
--- NOTE | 2019-04-20 09:00 | Progress Note ---
Assessment and Plan Assessment and plan: Acute encephalopathy, loss of consciousness Do MRI to r/o stroke History of 9 strokes Consult Neurology Acute kidney injury from vasomotor nephropathy/dehydration. Improving on iv fluids Nephrology following Hypertension. Continue antihypertensive medications. EtOH dependence. Continue thiamine folic acid multivitamin. CINM protocol. Nicotine dependence. Patient has been counseled on cessation. DVT prophylaxis. Continue SCDs. 04/19-Renal US negative for hydronephrosis. Patient also received IV contrast yesterday. Pt still in need of IVF, F/U BMP/renal function. Renal function improving. Renal prognosis is guarded. Avoid nephrotoxic agents. With regards to CVA, Neurology consultation pending. Follow-up carotid ultrasound and echocardiogram. Consider MRI per neurology recommendations. Continue secondary prevention with statin and aspirin. Follow-up hypercoagulable work-up. PT/OT 04/20 patient presented with altered mental status, loss of consciousness. Will get MRI Brain, MRA since he has history of multiple strokes X 9. History Interval history: Patient presented with altered mental status, loss of consciousness Hospitalist Physical - Physical exam Narrative exam: GEN: Not in acute distress, lying in bed, obese HEENT: Normocephalic, atraumatic, Neck: supple, No JVD Lungs: Clear to auscultation ,no wheeze, heart;S1 and S2 reg, no murmurs, rubs or gallop Abd:soft, non tender , non distended, normal bowel sounds Ext: No edema, no clubbing, no cyanosis Neuro: Awake,alert, oriented X 3, dysarthria, follows commands, moves all ext - Constitutional Vitals: Temp Pulse Resp BP Pulse Ox 98.1 F 61 16 129/95 99 04/20/19 05:52 04/20/19 05:52 04/20/19 05:52 04/20/19 06:26 04/20/19 05:52 General appearance: Present: mild distress, obese Results - Labs CBC & Chem 7: 04/19/19 07:23 04/20/19 04:05 Labs: Laboratory Last Values WBC 4.0 K/mm3 (4.5-11.0) L 04/19/19 07:23 RBC 4.58 M/mm3 (3.65-5.03) 04/19/19 07:23 Hgb 12.8 gm/dl (11.8-15.2) 04/19/19 07:23 Hct 39.3 % (35.5-45.6) 04/19/19 07:23 MCV 86 fl (84-94) 04/19/19 07:23 MCH 28 pg (28-32) 04/19/19 07:23 MCHC 32 % (32-34) 04/19/19 07:23 RDW 15.3 % (13.2-15.2) H 04/19/19 07:23 Plt Count 187 K/mm3 (140-440) 04/19/19 07:23 Lymph % (Auto) Technical Sales Specialist 04/19/19 07:23 [place] % (Auto) 8.7 % (0.0-7.3) H 04/17/19 10:35 Eos % (Auto) 5.6 % (0.0-4.3) H 04/17/19 10:35 Baso % (Auto) 0.2 % (0.0-1.8) 04/17/19 10:35 Lymph # 3.2 K/mm3 (1.2-5.4) 04/17/19 10:35 [place] # 0.6 K/mm3 (0.0-0.8) 04/17/19 10:35 Eos # 0.4 K/mm3 (0.0-0.4) 04/17/19 10:35 Baso # 0.0 K/mm3 (0.0-0.1) 04/17/19 10:35 Add Manual Diff Complete 04/19/19 07:23 Total Counted 100 04/19/19 07:23 Seg Neutrophils % Technical Sales Specialist 04/19/19 07:23 Seg Neuts % (Manual) 36.0 % (40.0-70.0) L 04/19/19 07:23 Band Neutrophils % 0 % 04/19/19 07:23 Lymphocytes % (Manual) 50.0 % (13.4-35.0) H 04/19/19 07:23 Reactive Lymphs % (Man) 0 % 04/19/19 07:23 Monocytes % (Manual) 8.0 % (0.0-7.3) H 04/19/19 07:23 Eosinophils % (Manual) 6.0 % (0.0-4.3) H 04/19/19 07:23 Basophils % (Manual) 0 % (0.0-1.8) 04/19/19 07:23 Metamyelocytes % 0 % 04/19/19 07:23 Myelocytes % 0 % 04/19/19 07:23 Promyelocytes % 0 % 04/19/19 07:23 Blast Cells % 0 % 04/19/19 07:23 Nucleated RBC % Not Reportable 04/19/19 07:23 Seg Neutrophils # 2.3 K/mm3 (1.8-7.7) 04/17/19 10:35 Seg Neutrophils # Man 1.4 K/mm3 (1.8-7.7) L 04/19/19 07:23 Band Neutrophils # 0.0 K/mm3 04/19/19 07:23 Lymphocytes # (Manual) 2.0 K/mm3 (1.2-5.4) 04/19/19 07:23 Abs React Lymphs (Man) 0.0 K/mm3 04/19/19 07:23 Monocytes # (Manual) 0.3 K/mm3 (0.0-0.8) 04/19/19 07:23 Eosinophils # (Manual) 0.2 K/mm3 (0.0-0.4) 04/19/19 07:23 Basophils # (Manual) 0.0 K/mm3 (0.0-0.1) 04/19/19 07:23 Metamyelocytes # 0.0 K/mm3 04/19/19 07:23 Myelocytes # 0.0 K/mm3 04/19/19 07:23 Promyelocytes # 0.0 K/mm3 04/19/19 07:23 Blast Cells # 0.0 K/mm3 04/19/19 07:23 WBC Morphology Not Reportable 04/19/19 07:23 Hypersegmented Neuts Not Reportable 04/19/19 07:23 Hyposegmented Neuts Not Reportable 04/19/19 07:23 Hypogranular Neuts Not Reportable 04/19/19 07:23 Smudge Cells Not Reportable 04/19/19 07:23 Toxic Granulation Not Reportable 04/19/19 07:23 Toxic Vacuolation Not Reportable 04/19/19 07:23 Dohle Bodies Not Reportable 04/19/19 07:23 Pelger-Huet Anomaly Not Reportable 04/19/19 07:23 Noel Rods Not Reportable 04/19/19 07:23 Platelet Estimate Consistent w auto 04/19/19 07:23 Clumped Platelets Not Reportable 04/19/19 07:23 Plt Clumps, EDTA Not Reportable 04/19/19 07:23 Large Platelets Not Reportable 04/19/19 07:23 Giant Platelets Not Reportable 04/19/19 07:23 Platelet Satelliting Not Reportable 04/19/19 07:23 Plt Morphology Comment Not Reportable 04/19/19 07:23 RBC Morphology Normal 04/19/19 07:23 Dimorphic RBCs Not Reportable 04/19/19 07:23 Polychromasia Not Reportable 04/19/19 07:23 Hypochromasia Not Reportable 04/19/19 07:23 Poikilocytosis Not Reportable 04/19/19 07:23 Anisocytosis Not Reportable 04/19/19 07:23 Microcytosis Not Reportable 04/19/19 07:23 Macrocytosis Not Reportable 04/19/19 07:23 Spherocytes Not Reportable 04/19/19 07:23 Pappenheimer Bodies Not Reportable 04/19/19 07:23 Sickle Cells Not Reportable 04/19/19 07:23 Target Cells Not Reportable 04/19/19 07:23 Tear Drop Cells Not Reportable 04/19/19 07:23 Ovalocytes Not Reportable 04/19/19 07:23 Helmet Cells Not Reportable 04/19/19 07:23 [place] Bodies Not Reportable 04/19/19 07:23 [place] Rings Not Reportable 04/19/19 07:23 [place] Cells Not Reportable 04/19/19 07:23 Bite Cells Not Reportable 04/19/19 07:23 Crenated Cell Not Reportable 04/19/19 07:23 Elliptocytes Not Reportable 04/19/19 07:23 Acanthocytes (Spur) Not Reportable 04/19/19 07:23 Rouleaux Not Reportable 04/19/19 07:23 Hemoglobin C Crystals Not Reportable 04/19/19 07:23 Schistocytes Not Reportable 04/19/19 07:23 Malaria parasites Not Reportable 04/19/19 07:23 [place]co Bodies Not Reportable 04/19/19 07:23 Hem Pathologist Commnt No 04/19/19 07:23 PT 13.9 Sec. (12.2-14.9) 04/17/19 10:35 INR 1.06 (0.87-1.13) 04/17/19 10:35 APTT 30.2 Sec. (24.2-36.6) 04/17/19 10:35 Thrombin Time 15.0 Sec. (15.1-19.6) L 04/17/19 10:35 Antithrombin III Ag 88 % (80-120) 04/17/19 13:00 Sodium 142 mmol/L (137-145) 04/20/19 04:05 Potassium 3.8 mmol/L (3.6-5.0) 04/20/19 04:05 Chloride 103.9 mmol/L (98-107) 04/20/19 04:05 Carbon Dioxide 22 mmol/L (22-30) 04/20/19 04:05 Anion Gap 20 mmol/L 04/20/19 04:05 BUN 21 mg/dL (9-20) H 04/20/19 04:05 Creatinine 1.6 mg/dL (0.8-1.5) H 04/20/19 04:05 Estimated GFR 55 ml/min 04/20/19 04:05 BUN/Creatinine Ratio 13 % 04/20/19 04:05 Glucose 109 mg/dL (75-100) H 04/20/19 04:05 POC Glucose 165 (70-105) H 04/19/19 17:50 Calcium 9.2 mg/dL (8.4-10.2) 04/20/19 04:05 Phosphorus 3.50 mg/dL (2.5-4.5) 04/18/19 06:34 Magnesium 2.70 mg/dL (1.7-2.3) H 04/18/19 06:34 Total Bilirubin 0.40 mg/dL (0.1-1.2) 04/17/19 10:57 Direct Bilirubin < 0.2 mg/dL (0-0.2) 04/17/19 10:57 AST 12 units/L (5-40) 04/17/19 10:57 ALT 8 units/L (7-56) 04/17/19 10:57 Alkaline Phosphatase 39 units/L (35-129) 04/17/19 10:57 Ammonia 16.0 umol/L (25-60) L 04/17/19 10:57 Troponin T < 0.010 ng/mL (0.00-0.029) 04/17/19 10:35 Total Protein 7.2 g/dL (6.3-8.2) 04/17/19 10:57 Albumin 4.3 g/dL (3.9-5) 04/17/19 10:57 Albumin/Globulin Ratio 1.5 % 04/17/19 10:57 Triglycerides 86 mg/dL (2-149) 04/19/19 07:23 Cholesterol 146 mg/dL (50-199) 04/19/19 07:23 LDL Cholesterol Direct 87 mg/dL (50-130) 04/19/19 07:23 HDL Cholesterol 43 mg/dL (40-59) 04/19/19 07:23 Cholesterol/HDL Ratio 3.39 % 04/19/19 07:23 Urine Color Yellow (Yellow) 04/19/19 07:00 Urine Turbidity Clear (Clear) 04/19/19 07:00 Urine pH 5.0 (5.0-7.0) 04/19/19 07:00 Ur Specific [place] 1.016 (1.003-1.030) 04/19/19 07:00 Urine Protein <15 mg/dl mg/dL (Negative) 04/19/19 07:00 Urine Glucose (UA) Neg mg/dL (Negative) 04/19/19 07:00 Urine Ketones Neg mg/dL (Negative) 04/19/19 07:00 Urine Blood Neg (Negative) 04/19/19 07:00 Urine Nitrite Neg (Negative) 04/19/19 07:00 Urine Bilirubin Neg (Negative) 04/19/19 07:00 Urine Urobilinogen < 2.0 mg/dL (<2.0) 04/19/19 07:00 Ur Leukocyte Esterase Neg (Negative) 04/19/19 07:00 Urine WBC (Auto) 1.0 /HPF (0.0-6.0) 04/19/19 07:00 Urine RBC (Auto) < 1.0 /HPF (0.0-6.0) 04/19/19 07:00 U Epithel Cells (Auto) < 1.0 /HPF (0-13.0) 02/24/20 07:00 Urine Creatinine 107.2 mg/dL (0.1-20.0) H 04/17/19 20:20 Urine Sodium 111 mmol/L 04/17/19 20:20 Urine Opiates Screen Presumptive negative 04/17/19 20:20 Urine Methadone Screen Presumptive negative 04/17/19 20:20 Ur Barbiturates Screen Presumptive negative 04/17/19 20:20 Ur Phencyclidine Scrn Presumptive negative 04/17/19 20:20 Ur Amphetamines Screen Presumptive negative 04/17/19 20:20 U Benzodiazepines Scrn Presumptive negative 04/17/19 20:20 Urine Cocaine Screen Presumptive negative 04/17/19 20:20 U Marijuana (THC) Screen Presumptive positive 04/17/19 20:20 Drugs of Abuse Note Disclamer 04/17/19 20:20 Plasma/Serum Alcohol < 0.01 % (0-0.07) 04/17/19 10:57 Active Medications - Current Medications Current Medications: Generic Name Dose Route Start Last Admin Trade Name Freq PRN Reason Stop Dose Admin Acetaminophen 650 mg 04/17/19 12:40 Tylenol PO Q4H PRN Pain, Mild (1-3) Albuterol 2.5 mg 04/17/19 12:40 Proventil IH Q3HRT PRN Shortness Of Breath Aspirin 325 mg 04/18/19 10:00 04/19/19 10:58 Aspirin PO 325 mg QDAY ALEJANDRINA Administration Atorvastatin Calcium 40 mg 04/17/19 22:00 04/19/19 21:18 Lipitor PO 40 mg QHS ALEJANDRINA Administration Bisacodyl 10 mg 04/17/19 12:40 Dulcolax AL QDAY PRN Constipation Carvedilol 25 mg 04/17/19 22:00 04/19/19 21:18 Coreg PO 25 mg BID ALEJANDRINA Administration Clonidine HCl 0.1 mg 04/17/19 13:00 04/20/19 06:25 Catapres PO 0.1 mg Q8H ALEJANDRINA Administration Famotidine 20 mg 04/17/19 22:00 04/19/19 10:56 Pepcid PO 20 mg DAILY ALEJANDRINA Administration Folic Acid 1 mg 04/18/19 10:00 04/19/19 10:56 Folvite PO 1 mg QDAY ALEJANDRINA Administration Heparin Sodium (Porcine) 5,000 unit 04/17/19 22:00 04/19/19 21:19 Heparin SUB-Q 5,000 unit Q12HR ALEJANDRINA Administration Hydralazine HCl 100 mg 04/19/19 18:21 04/20/19 06:26 Apresoline PO 100 mg Q8HR ALEJANDRINA Administration Lorazepam 2 mg 04/17/19 19:33 Ativan IV Q1H PRN CIWA-Ar 8-15 Magnesium Hydroxide 30 ml 04/17/19 12:40 Milk Of Magnesia PO Q4H PRN Constipation Metoclopramide HCl 10 mg 04/17/19 12:40 Reglan PO Q6H PRN Nausea And Vomiting Nicotine 21 mg 04/17/19 22:00 04/19/19 21:23 Habitrol TD 21 mg QDAY@2200 ALEJANDRINA Administration Ondansetron HCl 4 mg 04/17/19 12:40 Zofran IV Q8H PRN Nausea And Vomiting Promethazine HCl 25 mg 04/17/19 12:40 Phenergan AL Q6H PRN Nausea And Vomiting Quetiapine Fumarate 200 mg 04/17/19 22:00 04/19/19 21:18 Seroquel PO 200 mg QHS ALEJANDRINA Administration Sodium Chloride 10 ml 04/17/19 12:40 04/19/19 21:18 Sodium Chloride Flush Syringe 10 Ml IV 10 ml PRN PRN Administration LINE FLUSH Thiamine HCl 100 mg 04/18/19 10:00 04/19/19 10:56 Vitamin B-1 PO 100 mg QDAY ALEJANDRINA Administration Trazodone HCl 50 mg 04/17/19 22:00 04/19/19 21:18 Desyrel PO 50 mg QHS ALEJANDRINA Administration
[2019-04-20 09:40] LABS: Protein S, Free 113 % normal (57-171); Protein S, Total 92 % normal (70-140)
--- NOTE | 2019-04-20 09:46 | Progress Note ---
Assessment and Plan 1. Acute kidney injury: Acute kidney injury secondary to vasomotor nephropathy in the setting of hypotension. Creatinine level was 1.1 in 2016. Renal US negative for hydronephrosis. Patient also received IV contrast 04/17. Creatinine is currently 1.6 from 1.8. Renal function improving. Monitor renal function. Renal prognosis is guarded. Avoid nephrotoxic agents. Meds dosage based on GFR. 2. FEN: Metabolic acidosis, improved, monitor. Monitor lytes. 3. Acute CVA. MRI/MRA pending. Neuro consulted. 4. Hypertension: Hydralazine increased to 100 mg TID on 04/19. IV fluids stopped 04/19 d/t hypertension. BP appears controlled now. 5. EtOH dependence: CIWA protocol. 6. Bipolar. Subjective Date of service: 04/20/19 Interval history: Patient was seen and examined at the bedside. No family is present in room. No acute events overnight. Objective - Exam Narrative Exam: General appearance: well-developed, well-nourished, appears stated age, no distress HEENT: ATNC, ANTHONY, hearing intact Neck: Present: neck supple, trachea midline Respiratory: Clear to Ascultation Heart: regular, S1S2, no murmurs Gastrointestinal: soft, normoactive bowel sounds, not tender, not distended Integumentary: no rash, warm and dry Neurologic: no asterixis, alert and oriented x3, bilateral decreased eye sight Ext: no edema Psychiatric: cooperative - Vital Signs Vital signs: Vital Signs - 12hr 04/20/19 04/20/19 04/20/19 05:52 06:25 06:26 Temperature 98.1 F Pulse Rate 61 Respiratory 16 Rate Blood Pressure 129/95 129/95 129/95 O2 Sat by Pulse 99 Oximetry - Lab 04/19/19 07:23 04/20/19 04:05 Most recent lab results Calcium 9.2 mg/dL (8.4-10.2) 04/20/19 04:05 Phosphorus 3.50 mg/dL (2.5-4.5) 04/18/19 06:34 Magnesium 2.70 mg/dL (1.7-2.3) H 04/18/19 06:34 Urine Creatinine 107.2 mg/dL (0.1-20.0) H 04/17/19 20:20 Urine Sodium 111 mmol/L 04/17/19 20:20 Medications & Allergies - Medications Allergies/Adverse Reactions: Allergies No Known Allergies Allergy (Unverified 10/04/15 15:46) Home Medications: Home Medications Medication Instructions Recorded Confirmed Last Taken Type Aspirin [Adult Low Dose Aspirin EC] 81 mg PO DAILY 10/06/15 04/17/19 Unknown History Lisinopril [Zestril] 40 mg PO DAILY 10/06/15 04/17/19 Unknown History QUEtiapine [SEROquel] 200 mg PO QHS 10/06/15 04/17/19 Unknown History Famotidine [Pepcid] 20 mg PO BID #30 tablet 10/08/15 04/17/19 Unknown Rx Nicotine [Habitrol] 21 mg TD QDAY@2200 #30 patch 10/08/15 04/17/19 Unknown Rx amLODIPine 10 mg PO QDAY #30 tablet 10/08/15 04/17/19 Unknown Rx cloNIDine [Catapres] 0.1 mg PO Q8H #90 tablet 10/08/15 04/17/19 Unknown Rx Chlorthalidone [Thalitone] 25 mg PO QDAY #30 tablet 01/04/19 04/17/19 Unknown Rx carvediloL [Coreg] 25 mg PO BID #60 tablet 01/04/19 04/17/19 Unknown Rx lisinopriL [Zestril TAB] 40 mg PO QDAY #30 tablet 01/04/19 04/17/19 Unknown Rx Active Medications: Generic Name Dose Route Start Last Admin Trade Name Freq PRN Reason Stop Dose Admin Acetaminophen 650 mg 04/17/19 12:40 Tylenol PO Q4H PRN Pain, Mild (1-3) Albuterol 2.5 mg 04/17/19 12:40 Proventil IH Q3HRT PRN Shortness Of Breath Aspirin 325 mg 04/18/19 10:00 04/19/19 10:58 Aspirin PO 325 mg QDAY ALEJANDRINA Administration Atorvastatin Calcium 40 mg 04/17/19 22:00 04/19/19 21:18 Lipitor PO 40 mg QHS ALEJANDRINA Administration Bisacodyl 10 mg 04/17/19 12:40 Dulcolax [place] QDAY PRN Constipation Carvedilol 25 mg 04/17/19 22:00 04/19/19 21:18 Coreg PO 25 mg BID ALEJANDRINA Administration Clonidine HCl 0.1 mg 02/22/20 13:00 04/20/19 06:25 Catapres PO 0.1 mg Q8H ALEJANDIRNA Administration Famotidine 20 mg 04/17/19 22:00 04/19/19 10:56 Pepcid PO 20 mg DAILY ALEJANDRINA Administration Folic Acid 1 mg 04/18/19 10:00 04/19/19 10:56 Folvite PO 1 mg QDAY ALEJANDRINA Administration Heparin Sodium (Porcine) 5,000 unit 04/17/19 22:00 04/19/19 21:19 Heparin SUB-Q 5,000 unit Q12HR ALEJANDRINA Administration Hydralazine HCl 100 mg 04/19/19 18:21 04/20/19 06:26 Apresoline PO 100 mg Q8HR ALEJANDRINA Administration Lorazepam 2 mg 04/17/19 19:33 Ativan IV Q1H PRN CIWA-Ar 8-15 Magnesium Hydroxide 30 ml 04/17/19 12:40 Milk Of Magnesia PO Q4H PRN Constipation Metoclopramide HCl 10 mg 04/17/19 12:40 Reglan PO Q6H PRN Nausea And Vomiting Nicotine 21 mg 04/17/19 22:00 04/19/19 21:23 Habitrol TD 21 mg QDAY@2200 ALEJANDRINA Administration Ondansetron HCl 4 mg 04/17/19 12:40 Zofran IV Q8H PRN Nausea And Vomiting Promethazine HCl 25 mg 04/17/19 12:40 Phenergan [place] Q6H PRN Nausea And Vomiting Quetiapine Fumarate 200 mg 04/17/19 22:00 04/19/19 21:18 Seroquel PO 200 mg QHS ALEJANDRINA Administration Sodium Chloride 10 ml 04/17/19 12:40 04/19/19 21:18 Sodium Chloride Flush Syringe 10 Ml IV 10 ml PRN PRN Administration LINE FLUSH Thiamine HCl 100 mg 04/18/19 10:00 04/19/19 10:56 Vitamin B-1 PO 100 mg QDAY ALEJANDRINA Administration Trazodone HCl 50 mg 04/17/19 22:00 04/19/19 21:18 Desyrel PO 50 mg QHS ALEJANDRINA Administration
[2019-04-20] MEDS: ASPIRIN 325 MG TAB PO SCH (11:09)
[2019-04-20] MEDS: THIAMINE 100 MG TAB PO SCH (11:09)
[2019-04-20] MEDS: FOLIC ACID 1 MG TAB PO SCH (11:09)
[2019-04-20] MEDS: FAMOTIDINE 20 MG TAB PO SCH (11:09)
[2019-04-20] MEDS: carvediloL 25 MG TAB PO SCH ×2 (11:09→22:22)
[2019-04-20] MEDS: HEPARIN 5,000 UNIT/1 ML VIAL SUB-Q SCH ×2 (11:10→22:24)
--- NOTE | 2019-04-20 15:02 | Consultation ---
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 Patient was noted to have decrease in level of consciousness, slurred speech, and falls at home, for which he was brought to [facility] for further evaluation. He states that he has had 9 "mini strokes" in the past, however has a baseline of dysconjugate gaze, and decreased vision in b/l eyes, with Rt. eye having better vision than the left. He was found to have YSABEL, hypotension, and metabolic acidosis on admission. Now patient states that he has returned to his baseline. Past History Past Medical History: diabetes, hypertension, hyperlipidemia, stroke, other (See HPI) Past Surgical History: No surgical history, Other (Reviewed) Social history: smoking, alcohol abuse Family history: hypertension Medications and Allergies Allergies Allergy/AdvReac Type Severity Reaction Status Date / Time No Known Allergies Allergy Unverified 10/04/15 15:46 Home Medications Medication Instructions Recorded Confirmed Last Taken Type Aspirin [Adult Low Dose Aspirin EC] 81 mg PO DAILY 10/06/15 04/17/19 Unknown History Lisinopril [Zestril] 40 mg PO DAILY 10/06/15 04/17/19 Unknown History QUEtiapine [SEROquel] 200 mg PO QHS 10/06/15 04/17/19 Unknown History Famotidine [Pepcid] 20 mg PO BID #30 tablet 10/08/15 04/17/19 Unknown Rx Nicotine [Habitrol] 21 mg TD QDAY@2200 #30 patch 10/08/15 04/17/19 Unknown Rx amLODIPine 10 mg PO QDAY #30 tablet 10/08/15 04/17/19 Unknown Rx cloNIDine [Catapres] 0.1 mg PO Q8H #90 tablet 10/08/15 04/17/19 Unknown Rx Chlorthalidone [Thalitone] 25 mg PO QDAY #30 tablet 01/04/19 04/17/19 Unknown Rx carvediloL [Coreg] 25 mg PO BID #60 tablet 01/04/19 04/17/19 Unknown Rx lisinopriL [Zestril TAB] 40 mg PO QDAY #30 tablet 01/04/19 04/17/19 Unknown Rx Active Meds: Active Medications Acetaminophen (Tylenol) 650 mg PO Q4H PRN PRN Reason: Pain, Mild (1-3) Albuterol (Proventil) 2.5 mg IH Q3HRT PRN PRN Reason: Shortness Of Breath Aspirin (Aspirin) 325 mg PO QDAY [facility] Last Admin: 04/20/19 11:09 Dose: 325 mg Documented by: Atorvastatin Calcium (Lipitor) 40 mg PO QHS [facility] Last Admin: 04/19/19 21:18 Dose: 40 mg Documented by: Bisacodyl (Dulcolax) 10 mg IA QDAY PRN PRN Reason: Constipation Carvedilol (Coreg) 25 mg PO BID [facility] Last Admin: 04/20/19 11:09 Dose: 25 mg Documented by: Clonidine HCl (Catapres) 0.1 mg PO Q8H [facility] Last Admin: 04/20/19 06:25 Dose: 0.1 mg Documented by: Famotidine (Pepcid) 20 mg PO DAILY [facility] Last Admin: 04/20/19 11:09 Dose: 20 mg Documented by: Folic Acid (Folvite) 1 mg PO QDAY [facility] Last Admin: 04/20/19 11:09 Dose: 1 mg Documented by: Heparin Sodium (Porcine) (Heparin) 5,000 unit SUB-Q Q12HR [facility] Last Admin: 04/20/19 11:10 Dose: 5,000 unit Documented by: Hydralazine HCl (Apresoline) 100 mg PO Q8HR [facility] Last Admin: 04/20/19 06:26 Dose: 100 mg Documented by: Lorazepam (Ativan) 2 mg IV Q1H PRN PRN Reason: CIWA-Ar 8-15 Magnesium Hydroxide (Milk Of Magnesia) 30 ml PO Q4H PRN PRN Reason: Constipation Metoclopramide HCl (Reglan) 10 mg PO Q6H PRN PRN Reason: Nausea And Vomiting Nicotine (Habitrol) 21 mg TD QDAY@2200 [facility] Last Admin: 04/19/19 21:23 Dose: 21 mg Documented by: Ondansetron HCl (Zofran) 4 mg IV Q8H PRN PRN Reason: Nausea And Vomiting Promethazine HCl (Phenergan) 25 mg IA Q6H PRN PRN Reason: Nausea And Vomiting Quetiapine Fumarate (Seroquel) 200 mg PO QHS [facility] Last Admin: 04/19/19 21:18 Dose: 200 mg Documented by: Sodium Chloride (Sodium Chloride Flush Syringe 10 Ml) 10 ml IV PRN PRN PRN Reason: LINE FLUSH Last Admin: 04/19/19 21:18 Dose: 10 ml Documented by: Thiamine HCl (Vitamin B-1) 100 mg PO QDAY [facility] Last Admin: 04/20/19 11:09 Dose: 100 mg Documented by: Trazodone HCl (Desyrel) 50 mg PO QHS [facility] Last Admin: 04/19/19 21:18 Dose: 50 mg Documented by: Review of Systems All systems: negative Neurological: change in speech, change in mentation Physical Examination - Vital Signs Vital Signs: Vital Signs Pulse Resp 60 10 L 04/17/19 10:30 04/17/19 10:30 - Physical Exam Narrative exam: Patient is alert, awake, oriented x4, follows complex commands. Mild dysarthria noted which is his baseline. No aphasia noted. PERRL, dysconjugate gaze noted with inability for left eye to move medially, VFF, tongue midline, bilaterally intact to LT, no facial weakness noted. 5/5 strength in all extremities. Bilaterally intact light touch. Bilaterally intact to FTN and HTS. 2+ reflexes throughout. - Constitutional General appearance: comfortable - EENT EENT: Present: ATNC, PERRL, mucous membranes moist - Respiratory Respiratory: Present: lungs clear, normal breath sounds - Cardiovascular Cardiovascular: Present: regular rate, normal S1, normal S2 Extremities: Present: no clubbing, cyanosis, no inflammation - Gastrointestinal Gastrointestinal: Present: normoactive bowel sounds, soft, non-tender - Integumentary Integumentary: Present: normal - Musculoskeletal Musculoskeletal: Present: no fluid collection, no pain - Psychiatric Psychiatric: Present: mood/affect appropriate - Level of Consciousness 1a. Level of Consciousness: alert/keenly responsive - LOC Questions 1b. LOC Questions: answers both correctly - LOC Command 1c. LOC Commands: performs tasks correctly - Best Gaze 2. Best Gaze: partial gaze palsy - Visual 3. Visual: no visual loss - Facial Palsy 4. Facial Palsy: normal symmetrical movement - Motor Arm 5a. Motor Arm Left: no drift 5b. Motor Arm Right: no drift - Motor Leg 6a. Motor Leg Left: no drift 6b. Motor Leg Right: no drift - Limb Ataxia 7. Limb Ataxia: absent - Sensory 8. Sensory: normal - Best Language 9. Best Language: no aphasia - Dysarthria 10. Dysarthria: mild/moderate dysarthria (baseline) - Extinction and Inattention 11. Extinction/Inattention: no abnormality - Scoring Total Score: 2 Stroke Severity: Minor Stroke Results - Laboratory Findings CBC and BMP: 04/19/19 07:23 04/20/19 04:05 Abnormal Lab Findings: Abnormal Labs 04/17/19 04/17/19 04/17/19 10:35 10:35 10:35 WBC RDW 15.6 H Lymph % (Auto) 50.3 H [place] % (Auto) 8.7 H Eos % (Auto) 5.6 H Seg Neutrophils % 35.2 L Seg Neuts % (Manual) Lymphocytes % (Manual) Monocytes % (Manual) Eosinophils % (Manual) Seg Neutrophils # Man Thrombin Time 15.0 L Carbon Dioxide 20 L BUN 40 H Creatinine 3.3 H Glucose 134 H POC Glucose Magnesium Ammonia Urine Creatinine 04/17/19 04/17/19 04/18/19 10:57 20:20 06:34 WBC RDW Lymph % (Auto) [place] % (Auto) Eos % (Auto) Seg Neutrophils % Seg Neuts % (Manual) Lymphocytes % (Manual) Monocytes % (Manual) Eosinophils % (Manual) Seg Neutrophils # Man Thrombin Time Carbon Dioxide BUN 40 H Creatinine 2.6 H Glucose 149 H POC Glucose Magnesium 2.70 H Ammonia 16.0 L Urine Creatinine 107.2 H 04/19/19 04/19/19 04/19/19 07:23 07:23 17:50 WBC 4.0 L RDW 15.3 H Lymph % (Auto) [place] % (Auto) Eos % (Auto) Seg Neutrophils % Seg Neuts % (Manual) 36.0 L Lymphocytes % (Manual) 50.0 H Monocytes % (Manual) 8.0 H Eosinophils % (Manual) 6.0 H Seg Neutrophils # Man 1.4 L Thrombin Time Carbon Dioxide BUN 27 H Creatinine 1.8 H Glucose 112 H POC Glucose 165 H Magnesium Ammonia Urine Creatinine 04/20/19 04:05 WBC RDW Lymph % (Auto) [place] % (Auto) Eos % (Auto) Seg Neutrophils % Seg Neuts % (Manual) Lymphocytes % (Manual) Monocytes % (Manual) Eosinophils % (Manual) Seg Neutrophils # Man Thrombin Time Carbon Dioxide BUN 21 H Creatinine 1.6 H Glucose 109 H POC Glucose Magnesium Ammonia Urine Creatinine Assessment and Plan Patient is a 54 y/o man w/ a h/o HTN, 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 According to the patient's clinical findings, it is likely that he had metabolic encephalopathy as he was found to have YSABEL, metabolic acidosis, and hypotension. Metabolic encephalopathy has since resolved. Additionally, patient is noted to have possible subacute strokes on MRI brain. Plan: 1. Subacute strokes: - MRI brain: Noted to have subacute strokes in left subcortical region. - CTA head/neck: no significant stenosis - CT head: No acute abnormlaity - Echo: EF 55-60%, LA size normal, bubble study positive for PFO. Noted to have atrial septal aneurysm. - Cont. ASA - Cont. statin. LDL goal <70. - Telemetry monitoring while in house - PT/OT/ST - DVT Ppx: Recommend lovenox - Given that patient has h/o previous strokes, and is also noted to have what appears to be subacute strokes, would recommend cardiology consult or outpatient follow up with cardiology for possible closure of PFO. Further, patient is also noted to have an atrial septal aneurysm, which further indicates possibility of PFO being potential etiology of strokes. - Will check b/l UE/LE venous dopplers to rule out DVT. 2. Hypertension: - Recommend BP goal of normotension. 3. Metabolic Encephalopathy: - Patient now returned to baseline of mental status. - Cont. to treat metabolic abnormalities per primary team. - Will continue to monitor patient. Thank you for allowing me to take part in the care of this patient. Pramod Dove MD Neurology
--- NOTE | 2019-04-20 15:33 | Magnetic Resonance Report ---
MRI BRAIN 04/20/2019 INDICATION / CLINICAL INFORMATION: altered mental status. TECHNIQUE: Multiplanar, multisequence MR images of the brain were obtained. COMPARISON: None available. FINDINGS: BRAIN / INTRACRANIAL CONTENTS: Unenhanced MR images of the brain were obtained. There are 2-3 small foci of increased diffusion weighted signal present in the left hemispheric white matter, without definite ADC signal correlate. Initial located in the left peritrigonal region and l eft periventricular region. These may be small foci of subacute ischemic injury, superimposed on exte nsive chronic white matter signal change from prior small vessel ischemic change. There is no evidenc e of acute cortical ischemic injury. Ventricles and sulci are prominent in size for a patient of this age, consistent with prominent diffu se cerebral atrophy. There is no evidence of acute ischemic injury, hemorrhage, or mass. There are no abnormal extra-axial fluid collections. EXTRACRANIAL: Unremarkable CRANIOCERVICAL JUNCTION: No significant abnormality. VASCULAR FLOW-VOIDS: No significant abnormality. IMPRESSION: 1. Prominent diffuse cerebral atrophy and extensive diffuse chronic white matter signal abnormality. 2. 3 small foci of T2 shine through diffusion-weighted signal, with no definite evidence of acute isc hemic injury. Signer Name: Alexis Jackson MD Signed: 04/20/2019 3:29 PM Workstation Name: [employer]
--- NOTE | 2019-04-20 15:44 | Magnetic Resonance Report ---
HEAD MR ANGIOGRAM 04/20/2019 HISTORY: Altered mental status. Syncope. FINDINGS: MR angiographic images of the intracranial circulation were obtained. Image quality is some what limited due to patient motion artifact. Correlation is made to a brain CT angiogram from 04/17/19. Overall, there is been no change. Good flow signal is present in anterior posterior circulation v essels. A segment of the right middle cerebral artery is excluded from the reformatted images, but is visible on the source images. Atherosclerotic type irregularity is seen along the course of the distal internal carotid arteries an d in some of the branches of the middle cerebral arteries bilaterally. Overall, there is no change when compared prior CT angiogram, which provides somewhat better resoluti on. All CT scans at this location are performed using dose reduction to ALARA by means of automated expos ure control. Signer Name: Alexis Jackson MD Signed: 04/20/2019 3:40 PM Workstation Name: [id number]
[2019-04-20] MEDS: traZODone 50 MG TAB PO SCH (22:22)
[2019-04-20] MEDS: NICOTINE 21 MG/24 HR PATCH TD SCH (22:23)
[2019-04-20] MEDS: QUEtiapine 200 MG TAB PO SCH (22:23)
[2019-04-21] MEDS: cloNIDine 0.1 MG TAB PO SCH ×4 (00:50→22:53)
[2019-04-21] MEDS: hydrALAZINE 25 MG TAB PO SCH ×3 (06:12→22:54)
[2019-04-21 06:29] LABS: Calcium 9.3 mg/dL (8.4-10.2)
--- NOTE | 2019-04-21 09:38 | Progress Note ---
Assessment and Plan 1. Acute kidney injury: Acute kidney injury secondary to vasomotor nephropathy in the setting of hypotension. Creatinine level was 1.1 in 2016. Renal US negative for hydronephrosis. Patient also received IV contrast 04/17. Creatinine is currently stable. Renal function improving. Monitor renal function. Renal prognosis is guarded. Avoid nephrotoxic agents. Meds dosage based on GFR. 2. FEN: Metabolic acidosis, improved, monitor. Monitor lytes. 3. Acute CVA. MRI/MRA-no evidence of acute ischemic injury. Neuro consulted. 4. Hypertension: Hydralazine increased to 100 mg TID on 04/19. BP appears controlled now. 5. EtOH dependence: CIWA protocol. 6. Bipolar. Subjective Date of service: 04/21/19 Interval history: Patient was seen and examined at the bedside. No family is present in room. No acute events overnight. Patient states he would like to go home today. Objective - Exam Narrative Exam: General appearance: well-developed, well-nourished, appears stated age, no distress HEENT: ATNC, ANTHONY, hearing intact Neck: Present: neck supple, trachea midline Respiratory: Clear to Ascultation Heart: regular, S1S2, no murmurs Gastrointestinal: soft, normoactive bowel sounds, not tender, not distended Integumentary: no rash, warm and dry Neurologic: no asterixis, alert and oriented x3, bilateral decreased eye sight Ext: no edema Psychiatric: cooperative - Vital Signs Vital signs: Vital Signs - 12hr 04/20/19 04/20/19 04/20/19 21:50 22:20 22:22 Temperature Pulse Rate 71 75 67 Respiratory Rate Blood Pressure 155/114 155/114 O2 Sat by Pulse 99 99 Oximetry 04/20/19 04/20/19 04/20/19 22:23 22:30 23:50 Temperature 98.4 F Pulse Rate 67 69 Respiratory 18 18 Rate Blood Pressure 155/114 123/86 O2 Sat by Pulse 96 Oximetry 04/21/19 04/21/19 04/21/19 00:50 05:46 06:12 Temperature 99.2 F Pulse Rate 69 64 64 Respiratory 18 Rate Blood Pressure 123/86 113/81 113/81 O2 Sat by Pulse 97 Oximetry 04/21/19 06:13 Temperature Pulse Rate 64 Respiratory Rate Blood Pressure 113/81 O2 Sat by Pulse Oximetry - Lab 04/19/19 07:23 04/21/19 05:24 Most recent lab results Calcium 9.3 mg/dL (8.4-10.2) 04/21/19 05:24 Phosphorus 3.50 mg/dL (2.5-4.5) 04/18/19 06:34 Magnesium 2.70 mg/dL (1.7-2.3) H 04/18/19 06:34 Urine Creatinine 107.2 mg/dL (0.1-20.0) H 04/17/19 20:20 Urine Sodium 111 mmol/L 04/17/19 20:20 Medications & Allergies - Medications Allergies/Adverse Reactions: Allergies tomato Allergy (Verified 04/21/19 09:44) Hives Home Medications: Home Medications Medication Instructions Recorded Confirmed Last Taken Type Aspirin [Adult Low Dose Aspirin EC] 81 mg PO DAILY 10/06/15 04/17/19 Unknown History Lisinopril [Zestril] 40 mg PO DAILY 10/06/15 04/17/19 Unknown History QUEtiapine [SEROquel] 200 mg PO QHS 10/06/15 04/17/19 Unknown History Famotidine [Pepcid] 20 mg PO BID #30 tablet 10/08/15 04/17/19 Unknown Rx Nicotine [Habitrol] 21 mg TD QDAY@2200 #30 patch 10/08/15 04/17/19 Unknown Rx amLODIPine 10 mg PO QDAY #30 tablet 10/08/15 04/17/19 Unknown Rx cloNIDine [Catapres] 0.1 mg PO Q8H #90 tablet 10/08/15 04/17/19 Unknown Rx Chlorthalidone [Thalitone] 25 mg PO QDAY #30 tablet 01/04/19 04/17/19 Unknown Rx carvediloL [Coreg] 25 mg PO BID #60 tablet 01/04/19 04/17/19 Unknown Rx lisinopriL [Zestril TAB] 40 mg PO QDAY #30 tablet 01/04/19 04/17/19 Unknown Rx Active Medications: Generic Name Dose Route Start Last Admin Trade Name Freq PRN Reason Stop Dose Admin Acetaminophen 650 mg 04/17/19 12:40 Tylenol PO Q4H PRN Pain, Mild (1-3) Albuterol 2.5 mg 04/17/19 12:40 Proventil IH Q3HRT PRN Shortness Of Breath Aspirin 325 mg 04/18/19 10:00 04/20/19 11:09 Aspirin PO 325 mg QDAY [facility] Administration Atorvastatin Calcium 40 mg 04/17/19 22:00 04/20/19 22:23 Lipitor PO 40 mg QHS [facility] Administration Bisacodyl 10 mg 04/17/19 12:40 Dulcolax CA QDAY PRN Constipation Carvedilol 25 mg 04/17/19 22:00 04/20/19 22:22 Coreg PO 25 mg BID [facility] Administration Clonidine HCl 0.1 mg 04/21/19 00:00 04/21/19 06:13 Catapres PO Not Given Q8HR [facility] Famotidine 20 mg 04/17/19 22:00 04/20/19 11:09 Pepcid PO 20 mg DAILY [facility] Administration Folic Acid 1 mg 04/18/19 10:00 04/20/19 11:09 Folvite PO 1 mg QDAY [facility] Administration Heparin Sodium (Porcine) 5,000 unit 04/17/19 22:00 04/20/19 22:24 Heparin SUB-Q 5,000 unit Q12HR [facility] Administration Hydralazine HCl 100 mg 04/19/19 18:21 04/21/19 06:12 Apresoline PO Not Given Q8HR [facility] Lorazepam 2 mg 04/17/19 19:33 Ativan IV Q1H PRN CIWA-Ar 8-15 Magnesium Hydroxide 30 ml 04/17/19 12:40 Milk Of Magnesia PO Q4H PRN Constipation Metoclopramide HCl 10 mg 04/17/19 12:40 Reglan PO Q6H PRN Nausea And Vomiting Nicotine 21 mg 04/17/19 22:00 04/20/19 22:23 Habitrol TD 21 mg QDAY@2200 [facility] Administration Ondansetron HCl 4 mg 04/17/19 12:40 Zofran IV Q8H PRN Nausea And Vomiting Promethazine HCl 25 mg 04/17/19 12:40 Phenergan CA Q6H PRN Nausea And Vomiting Quetiapine Fumarate 200 mg 04/17/19 22:00 04/20/19 22:23 Seroquel PO 200 mg QHS [facility] Administration Sodium Chloride 10 ml 04/17/19 12:40 04/19/19 21:18 Sodium Chloride Flush Syringe 10 Ml IV 10 ml PRN PRN Administration LINE FLUSH Thiamine HCl 100 mg 04/18/19 10:00 04/20/19 11:09 Vitamin B-1 PO 100 mg QDAY [facility] Administration Trazodone HCl 50 mg 04/17/19 22:00 04/20/19 22:22 Desyrel PO 50 mg QHS [facility] Administration
--- NOTE | 2019-04-21 10:09 | Consultation ---
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 Patient was noted to have decrease in level of consciousness, slurred speech, and falls at home, for which he was brought to [facility] for further evaluation. Now patient states that he has returned to his baseline. MRI brain noted to have subacute strokes in left subcortical region. CTA head/neck: no significant stenosis. CT head no acute abnormality. tte reviewed - EF 55-60%, RA mildly dilated, PFO demonstrated by bubble study, evidence of atrial septal aneurysm, and thus cardiology has been consulted. Pt denies any known prior cardiac issues. He denies any occurrence of chest pain, palpitations, n/v, diaphoresis, dizziness or syncope. He does not regularly see a PCP or examining chair assembler. Telemetry reviewed - pt in SR with one brief bout of apparent atrial tachycardia overnight, pt asymptomatic. Past History Past Medical History: hypertension, stroke, other (See HPI) Past Surgical History: No surgical history, Other (Reviewed) Social history: smoking, alcohol abuse Family history: hypertension Medications and Allergies Allergies Allergy/AdvReac Type Severity Reaction Status Date / Time tomato Allergy Hives Verified 04/21/19 09:44 Home Medications Medication Instructions Recorded Confirmed Last Taken Type Aspirin [Adult Low Dose Aspirin EC] 81 mg PO DAILY 10/06/15 04/17/19 Unknown History Lisinopril [Zestril] 40 mg PO DAILY 10/06/15 04/17/19 Unknown History QUEtiapine [SEROquel] 200 mg PO QHS 10/06/15 04/17/19 Unknown History Famotidine [Pepcid] 20 mg PO BID #30 tablet 10/08/15 04/17/19 Unknown Rx Nicotine [Habitrol] 21 mg TD QDAY@2200 #30 patch 10/08/15 04/17/19 Unknown Rx amLODIPine 10 mg PO QDAY #30 tablet 10/08/15 04/17/19 Unknown Rx cloNIDine [Catapres] 0.1 mg PO Q8H #90 tablet 10/08/15 04/17/19 Unknown Rx Chlorthalidone [Thalitone] 25 mg PO QDAY #30 tablet 01/04/19 04/17/19 Unknown Rx carvediloL [Coreg] 25 mg PO BID #60 tablet 01/04/19 04/17/19 Unknown Rx lisinopriL [Zestril TAB] 40 mg PO QDAY #30 tablet 01/04/19 04/17/19 Unknown Rx Active Meds: Active Medications Acetaminophen (Tylenol) 650 mg PO Q4H PRN PRN Reason: Pain, Mild (1-3) Albuterol (Proventil) 2.5 mg IH Q3HRT PRN PRN Reason: Shortness Of Breath Aspirin (Aspirin) 325 mg PO QDAY [facility] Last Admin: 04/20/19 11:09 Dose: 325 mg Documented by: Atorvastatin Calcium (Lipitor) 40 mg PO QHS [facility] Last Admin: 04/20/19 22:23 Dose: 40 mg Documented by: Bisacodyl (Dulcolax) 10 mg LA QDAY PRN PRN Reason: Constipation Carvedilol (Coreg) 25 mg PO BID [facility] Last Admin: 04/20/19 22:22 Dose: 25 mg Documented by: Clonidine HCl (Catapres) 0.1 mg PO Q8HR [facility] Last Admin: 04/21/19 06:13 Dose: Not Given Documented by: Famotidine (Pepcid) 20 mg PO DAILY [facility] Last Admin: 04/20/19 11:09 Dose: 20 mg Documented by: Folic Acid (Folvite) 1 mg PO QDAY [facility] Last Admin: 04/20/19 11:09 Dose: 1 mg Documented by: Heparin Sodium (Porcine) (Heparin) 5,000 unit SUB-Q Q12HR [facility] Last Admin: 04/20/19 22:24 Dose: 5,000 unit Documented by: Hydralazine HCl (Apresoline) 100 mg PO Q8HR [facility] Last Admin: 04/21/19 06:12 Dose: Not Given Documented by: Lorazepam (Ativan) 2 mg IV Q1H PRN PRN Reason: CIWA-Ar 8-15 Magnesium Hydroxide (Milk Of Magnesia) 30 ml PO Q4H PRN PRN Reason: Constipation Metoclopramide HCl (Reglan) 10 mg PO Q6H PRN PRN Reason: Nausea And Vomiting Nicotine (Habitrol) 21 mg TD QDAY@2200 [facility] Last Admin: 04/20/19 22:23 Dose: 21 mg Documented by: Ondansetron HCl (Zofran) 4 mg IV Q8H PRN PRN Reason: Nausea And Vomiting Promethazine HCl (Phenergan) 25 mg LA Q6H PRN PRN Reason: Nausea And Vomiting Quetiapine Fumarate (Seroquel) 200 mg PO QHS [facility] Last Admin: 04/20/19 22:23 Dose: 200 mg Documented by: Sodium Chloride (Sodium Chloride Flush Syringe 10 Ml) 10 ml IV PRN PRN PRN Reason: LINE FLUSH Last Admin: 04/19/19 21:18 Dose: 10 ml Documented by: Thiamine HCl (Vitamin B-1) 100 mg PO QDAY [facility] Last Admin: 04/20/19 11:09 Dose: 100 mg Documented by: Trazodone HCl (Desyrel) 50 mg PO QHS [facility] Last Admin: 04/20/19 22:22 Dose: 50 mg Documented by: Review of Systems Constitutional: no weight loss, no weight gain, no fever, no chills, no sweats Ears, nose, mouth and throat: no ear pain, no nose pain, no sinus pressure, no sinus pain Cardiovascular: high blood pressure, no chest pain, no orthopnea, no palpitations, no rapid/irregular heart beat, no edema, no syncope, no lightheadedness, no shortness of breath, no dyspnea on exertion, no paroxysmal nocturnal dyspnea, no decreased exercise tolerance Respiratory: no cough, no shortness of breath, no dyspnea on exertion, no congestion, no wheezing, no pain on inspiration Gastrointestinal: no abdominal pain, no nausea, no vomiting, no diarrhea, no constipation, no change in bowel habits Genitourinary Male: no dysuria, no hematuria, no flank pain, no discharge, no urinary frequency, no urinary hesitancy Musculoskeletal: no neck stiffness, no neck pain, no shooting arm pain, no arm numbness/tingling, no low back pain, no shooting leg pain Integumentary: no rash, no pruritis, no redness, no sores, no wounds Neurological: weakness, change in speech, change in mentation, no head injury, no paralysis, no parathesias, no numbness, no tingling, no seizures, no syncope Psychiatric: no anxiety Endocrine: no cold intolerance, no heat intolerance Hematologic/Lymphatic: no easy bruising, no easy bleeding Allergic/Immunologic: no urticaria Physical Examination Vital Signs Pulse Resp 60 10 L 04/17/19 10:30 04/17/19 10:30 General appearance: no acute distress HEENT: Positive: PERRL, Normocephaly, Mucus Membranes Moist Neck: Positive: neck supple, trachea midline Cardiac: Positive: Reg Rate and Rhythm, S1/S2 Lungs: Positive: Decreased Breath Sounds Neuro: Positive: Grossly Intact Abdomen: Negative: Tender Skin: Negative: Rash Musculoskeletal: No Pain Extremities: Absent: edema Results 04/19/19 07:23 04/21/19 05:24 Comprehensive Metabolic Panel 04/21/19 Range/Units 05:24 Sodium 139 (137-145) mmol/L Potassium 3.7 (3.6-5.0) mmol/L Chloride 101.7 (98-107) mmol/L Carbon Dioxide 23 (22-30) mmol/L BUN 23 H (9-20) mg/dL Creatinine 1.6 H (0.8-1.5) mg/dL Glucose 109 H (75-100) mg/dL Calcium 9.3 (8.4-10.2) mg/dL - Imaging and Cardiology Echo: report reviewed EKG: report reviewed, image reviewed EKG interpretations - Telemetry EKG Rhythm: Sinus Rhythm - EKG Sinus rhythms and dysrhythmias: sinus rhythm AV and intraventricular conduction: intraventricular conducti Assessment and Plan Currently stable cardiac status. Agree with present cardiac regimen. Cont to observe on telemetry. ANGELICA recommended for definitive diagnosis. Indications, potential risks and benefits of ANGELICA reviewed with pt and he is agreeable to proceed with ANGELICA in AM. NPO after MN. The patient has been seen in conjunction with Dr. Velasquez Abdi who agrees with the assessment and plan of care. - Patient Problems (1) Stroke Current Visit: Yes Status: Suspected Qualifiers: CVA mechanism: unspecified Qualified Code(s): I63.9 - Cerebral infarction, unspecified (2) Atrial septal aneurysm Current Visit: Yes Status: Chronic (3) PFO (patent foramen ovale) Current Visit: Yes Status: Chronic (4) History of CVA (cerebrovascular accident) Current Visit: Yes Status: Chronic (5) History of recurrent TIAs Current Visit: Yes Status: Chronic (6) Hypertension Current Visit: Yes Status: Chronic Qualifiers: Hypertension type: essential hypertension Qualified Code(s): I10 - Essential (primary) hypertension (7) Acute kidney injury Current Visit: Yes Status: Acute (8) Alcohol use Current Visit: Yes Status: Chronic (9) Tobacco use Current Visit: Yes Status: Chronic
--- NOTE | 2019-04-21 10:37 | Progress Note ---
Assessment and Plan Assessment and plan: Acute metabolic encephalopathy, loss of consciousness History of 9 strokes Consulted Neurology, following I discussed with Subacute ischemic stroke On Aspirin, Plavix neurology following Acute kidney injury from vasomotor nephropathy/dehydration. Improving on iv fluids Nephrology following Hypertension. Continue antihypertensive medications. EtOH dependence. Continue thiamine folic acid multivitamin. [facility] protocol. Nicotine dependence. Patient has been counseled on cessation. DVT prophylaxis. Continue SCDs. 04/19-Renal US negative for hydronephrosis. Patient also received IV contrast yesterday. Pt still in need of IVF, F/U BMP/renal function. Renal function improving. Renal prognosis is guarded. Avoid nephrotoxic agents. With regards to CVA, Neurology consultation pending. Follow-up carotid ultrasound and echocardiogram. Consider MRI per neurology recommendations. Continue secondary prevention with statin and aspirin. Follow-up hypercoagulable work-up. PT/OT 04/20 patient presented with altered mental status, loss of consciousness. Will get MRI Brain, MRA since he has history of multiple strokes X 9. 04/21 patient has atrial septal aneurysm, PFO cardiology consulted. For NAGELICA tomorrow History Interval history: Patient presented with altered mental status, loss of consciousness, Hospitalist Physical - Physical exam Narrative exam: GEN: Not in acute distress, lying in bed, obese HEENT: Normocephalic, atraumatic, Neck: supple, No JVD Lungs: Clear to auscultation ,no wheeze, heart;S1 and S2 reg, no murmurs, rubs or gallop Abd:soft, non tender , non distended, normal bowel sounds Ext: No edema, no clubbing, no cyanosis Neuro: Awake,alert, oriented X 3, dysarthria, follows commands, moves all ext - Constitutional Vitals: Temp Pulse Resp BP Pulse Ox 99.2 F 64 18 113/81 97 04/21/19 05:46 04/21/19 06:13 04/21/19 05:46 04/21/19 06:13 04/21/19 05:46 General appearance: Present: no acute distress Results - Labs CBC & Chem 7: 04/19/19 07:23 04/22/19 04:08 Labs: Laboratory Last Values WBC 4.0 K/mm3 (4.5-11.0) L 04/19/19 07:23 RBC 4.58 M/mm3 (3.65-5.03) 04/19/19 07:23 Hgb 12.8 gm/dl (11.8-15.2) 04/19/19 07:23 Hct 39.3 % (35.5-45.6) 04/19/19 07:23 MCV 86 fl (84-94) 04/19/19 07:23 MCH 28 pg (28-32) 04/19/19 07:23 MCHC 32 % (32-34) 04/19/19 07:23 RDW 15.3 % (13.2-15.2) H 04/19/19 07:23 Plt Count 187 K/mm3 (140-440) 04/19/19 07:23 Lymph % (Auto) Multilith Operator 04/19/19 07:23 [place] % (Auto) 8.7 % (0.0-7.3) H 04/17/19 10:35 Eos % (Auto) 5.6 % (0.0-4.3) H 04/17/19 10:35 Baso % (Auto) 0.2 % (0.0-1.8) 04/17/19 10:35 Lymph # 3.2 K/mm3 (1.2-5.4) 04/17/19 10:35 [place] # 0.6 K/mm3 (0.0-0.8) 04/17/19 10:35 Eos # 0.4 K/mm3 (0.0-0.4) 04/17/19 10:35 Baso # 0.0 K/mm3 (0.0-0.1) 04/17/19 10:35 Add Manual Diff Complete 04/19/19 07:23 Total Counted 100 04/19/19 07:23 Seg Neutrophils % Multilith Operator 04/19/19 07:23 Seg Neuts % (Manual) 36.0 % (40.0-70.0) L 04/19/19 07:23 Band Neutrophils % 0 % 04/19/19 07:23 Lymphocytes % (Manual) 50.0 % (13.4-35.0) H 04/19/19 07:23 Reactive Lymphs % (Man) 0 % 04/19/19 07:23 Monocytes % (Manual) 8.0 % (0.0-7.3) H 04/19/19 07:23 Eosinophils % (Manual) 6.0 % (0.0-4.3) H 04/19/19 07:23 Basophils % (Manual) 0 % (0.0-1.8) 04/19/19 07:23 Metamyelocytes % 0 % 04/19/19 07:23 Myelocytes % 0 % 04/19/19 07:23 Promyelocytes % 0 % 04/19/19 07:23 Blast Cells % 0 % 04/19/19 07:23 Nucleated RBC % Not Reportable 04/19/19 07:23 Seg Neutrophils # 2.3 K/mm3 (1.8-7.7) 04/17/19 10:35 Seg Neutrophils # Man 1.4 K/mm3 (1.8-7.7) L 04/19/19 07:23 Band Neutrophils # 0.0 K/mm3 04/19/19 07:23 Lymphocytes # (Manual) 2.0 K/mm3 (1.2-5.4) 04/19/19 07:23 Abs React Lymphs (Man) 0.0 K/mm3 04/19/19 07:23 Monocytes # (Manual) 0.3 K/mm3 (0.0-0.8) 04/19/19 07:23 Eosinophils # (Manual) 0.2 K/mm3 (0.0-0.4) 04/19/19 07:23 Basophils # (Manual) 0.0 K/mm3 (0.0-0.1) 04/19/19 07:23 Metamyelocytes # 0.0 K/mm3 04/19/19 07:23 Myelocytes # 0.0 K/mm3 04/19/19 07:23 Promyelocytes # 0.0 K/mm3 04/19/19 07:23 Blast Cells # 0.0 K/mm3 04/19/19 07:23 WBC Morphology Not Reportable 04/19/19 07:23 Hypersegmented Neuts Not Reportable 04/19/19 07:23 Hyposegmented Neuts Not Reportable 04/19/19 07:23 Hypogranular Neuts Not Reportable 04/19/19 07:23 Smudge Cells Not Reportable 04/19/19 07:23 Toxic Granulation Not Reportable 04/19/19 07:23 Toxic Vacuolation Not Reportable 04/19/19 07:23 Dohle Bodies Not Reportable 04/19/19 07:23 Pelger-Huet Anomaly Not Reportable 04/19/19 07:23 Noel Rods Not Reportable 04/19/19 07:23 Platelet Estimate Consistent w auto 04/19/19 07:23 Clumped Platelets Not Reportable 04/19/19 07:23 Plt Clumps, EDTA Not Reportable 04/19/19 07:23 Large Platelets Not Reportable 04/19/19 07:23 Giant Platelets Not Reportable 04/19/19 07:23 Platelet Satelliting Not Reportable 04/19/19 07:23 Plt Morphology Comment Not Reportable 04/19/19 07:23 RBC Morphology Normal 04/19/19 07:23 Dimorphic RBCs Not Reportable 04/19/19 07:23 Polychromasia Not Reportable 04/19/19 07:23 Hypochromasia Not Reportable 04/19/19 07:23 Poikilocytosis Not Reportable 04/19/19 07:23 Anisocytosis Not Reportable 04/19/19 07:23 Microcytosis Not Reportable 04/19/19 07:23 Macrocytosis Not Reportable 04/19/19 07:23 Spherocytes Not Reportable 04/19/19 07:23 Pappenheimer Bodies Not Reportable 04/19/19 07:23 Sickle Cells Not Reportable 04/19/19 07:23 Target Cells Not Reportable 04/19/19 07:23 Tear Drop Cells Not Reportable 04/19/19 07:23 Ovalocytes Not Reportable 04/19/19 07:23 Helmet Cells Not Reportable 04/19/19 07:23 [place] Bodies Not Reportable 04/19/19 07:23 Robbins Rings Not Reportable 04/19/19 07:23 [place] Cells Not Reportable 04/19/19 07:23 Bite Cells Not Reportable 04/19/19 07:23 Crenated Cell Not Reportable 04/19/19 07:23 Elliptocytes Not Reportable 04/19/19 07:23 Acanthocytes (Spur) Not Reportable 04/19/19 07:23 Rouleaux Not Reportable 04/19/19 07:23 Hemoglobin C Crystals Not Reportable 04/19/19 07:23 Schistocytes Not Reportable 04/19/19 07:23 Malaria parasites Not Reportable 04/19/19 07:23 Demarco Bodies Not Reportable 04/19/19 07:23 Hem Pathologist Commnt No 04/19/19 07:23 PT 13.9 Sec. (12.2-14.9) 04/17/19 10:35 INR 1.06 (0.87-1.13) 04/17/19 10:35 APTT 30.2 Sec. (24.2-36.6) 04/17/19 10:35 Thrombin Time 15.0 Sec. (15.1-19.6) L 04/17/19 10:35 Protein C Antigen 84 % (70-140) 04/17/19 13:00 Free Protein S 113 % normal (57-171) 04/17/19 13:00 Total Protein S 92 % normal (70-140) 04/17/19 13:00 Antithrombin III Ag 88 % (80-120) 04/17/19 13:00 Sodium 139 mmol/L (137-145) 04/21/19 05:24 Potassium 3.7 mmol/L (3.6-5.0) 04/21/19 05:24 Chloride 101.7 mmol/L (98-107) 04/21/19 05:24 Carbon Dioxide 23 mmol/L (22-30) 04/21/19 05:24 Anion Gap 18 mmol/L 04/21/19 05:24 BUN 23 mg/dL (9-20) H 04/21/19 05:24 Creatinine 1.6 mg/dL (0.8-1.5) H 04/21/19 05:24 Estimated GFR 55 ml/min 04/21/19 05:24 BUN/Creatinine Ratio 14 % 04/21/19 05:24 Glucose 109 mg/dL (75-100) H 04/21/19 05:24 POC Glucose 165 (70-105) H 04/19/19 17:50 Calcium 9.3 mg/dL (8.4-10.2) 04/21/19 05:24 Phosphorus 3.50 mg/dL (2.5-4.5) 04/18/19 06:34 Magnesium 2.70 mg/dL (1.7-2.3) H 04/18/19 06:34 Total Bilirubin 0.40 mg/dL (0.1-1.2) 04/17/19 10:57 Direct Bilirubin < 0.2 mg/dL (0-0.2) 04/17/19 10:57 AST 12 units/L (5-40) 04/17/19 10:57 ALT 8 units/L (7-56) 04/17/19 10:57 Alkaline Phosphatase 39 units/L (35-129) 04/17/19 10:57 Ammonia 16.0 umol/L (25-60) L 04/17/19 10:57 Troponin T < 0.010 ng/mL (0.00-0.029) 04/17/19 10:35 Total Protein 7.2 g/dL (6.3-8.2) 04/17/19 10:57 Albumin 4.3 g/dL (3.9-5) 04/17/19 10:57 Albumin/Globulin Ratio 1.5 % 04/17/19 10:57 Triglycerides 86 mg/dL (2-149) 04/19/19 07:23 Cholesterol 146 mg/dL (50-199) 04/19/19 07:23 LDL Cholesterol Direct 87 mg/dL (50-130) 04/19/19 07:23 HDL Cholesterol 43 mg/dL (40-59) 04/19/19 07:23 Cholesterol/HDL Ratio 3.39 % 04/19/19 07:23 Urine Color Yellow (Yellow) 04/19/19 07:00 Urine Turbidity Clear (Clear) 04/19/19 07:00 Urine pH 5.0 (5.0-7.0) 04/19/19 07:00 Ur Specific [place] 1.016 (1.003-1.030) 04/19/19 07:00 Urine Protein <15 mg/dl mg/dL (Negative) 04/19/19 07:00 Urine Glucose (UA) Neg mg/dL (Negative) 04/19/19 07:00 Urine Ketones Neg mg/dL (Negative) 04/19/19 07:00 Urine Blood Neg (Negative) 04/19/19 07:00 Urine Nitrite Neg (Negative) 04/19/19 07:00 Urine Bilirubin Neg (Negative) 04/19/19 07:00 Urine Urobilinogen < 2.0 mg/dL (<2.0) 04/19/19 07:00 Ur Leukocyte Esterase Neg (Negative) 04/19/19 07:00 Urine WBC (Auto) 1.0 /HPF (0.0-6.0) 04/19/19 07:00 Urine RBC (Auto) < 1.0 /HPF (0.0-6.0) 04/19/19 07:00 U Epithel Cells (Auto) < 1.0 /HPF (0-13.0) 04/19/19 07:00 Urine Creatinine 107.2 mg/dL (0.1-20.0) H 04/17/19 20:20 Urine Sodium 111 mmol/L 04/17/19 20:20 Urine Opiates Screen Presumptive negative 04/17/19 20:20 Urine Methadone Screen Presumptive negative 04/17/19 20:20 Ur Barbiturates Screen Presumptive negative 04/17/19 20:20 Ur Phencyclidine Scrn Presumptive negative 04/17/19 20:20 Ur Amphetamines Screen Presumptive negative 04/17/19 20:20 U Benzodiazepines Scrn Presumptive negative 04/17/19 20:20 Urine Cocaine Screen Presumptive negative 04/17/19 20:20 U Marijuana (THC) Screen Presumptive positive 04/17/19 20:20 Drugs of Abuse Note Disclamer 04/17/19 20:20 Plasma/Serum Alcohol < 0.01 % (0-0.07) 04/17/19 10:57 Active Medications - Current Medications Current Medications: Generic Name Dose Route Start Last Admin Trade Name Freq PRN Reason Stop Dose Admin Acetaminophen 650 mg 04/17/19 12:40 Tylenol PO Q4H PRN Pain, Mild (1-3) Albuterol 2.5 mg 04/17/19 12:40 Proventil IH Q3HRT PRN Shortness Of Breath Aspirin 325 mg 04/18/19 10:00 04/20/19 11:09 Aspirin PO 325 mg QDAY ALEJANDRINA Administration Atorvastatin Calcium 40 mg 04/17/19 22:00 04/20/19 22:23 Lipitor PO 40 mg QHS ALEJANDRINA Administration Bisacodyl 10 mg 04/17/19 12:40 Dulcolax [place] QDAY PRN Constipation Carvedilol 25 mg 04/17/19 22:00 04/20/19 22:22 Coreg PO 25 mg BID ALEJANDRINA Administration Clonidine HCl 0.1 mg 04/21/19 00:00 04/21/19 06:13 Catapres PO Not Given Q8HR ALEJANDRINA Famotidine 20 mg 04/17/19 22:00 04/20/19 11:09 Pepcid PO 20 mg DAILY ALEJANDRINA Administration Folic Acid 1 mg 04/18/19 10:00 04/20/19 11:09 Folvite PO 1 mg QDAY [facility] Administration Heparin Sodium (Porcine) 5,000 unit 04/17/19 22:00 04/20/19 22:24 Heparin SUB-Q 5,000 unit Q12HR [facility] Administration Hydralazine HCl 100 mg 04/19/19 18:21 04/21/19 06:12 Apresoline PO Not Given Q8HR [facility] Lorazepam 2 mg 04/17/19 19:33 Ativan IV Q1H PRN CIWA-Ar 8-15 Magnesium Hydroxide 30 ml 04/17/19 12:40 Milk Of Magnesia PO Q4H PRN Constipation Metoclopramide HCl 10 mg 04/17/19 12:40 Reglan PO Q6H PRN Nausea And Vomiting Nicotine 21 mg 04/17/19 22:00 04/20/19 22:23 Habitrol TD 21 mg QDAY@2200 [facility] Administration Ondansetron HCl 4 mg 04/17/19 12:40 Zofran IV Q8H PRN Nausea And Vomiting Promethazine HCl 25 mg 04/17/19 12:40 Phenergan [place] Q6H PRN Nausea And Vomiting Quetiapine Fumarate 200 mg 04/17/19 22:00 04/20/19 22:23 Seroquel PO 200 mg QHS [facility] Administration Sodium Chloride 10 ml 04/17/19 12:40 04/19/19 21:18 Sodium Chloride Flush Syringe 10 Ml IV 10 ml PRN PRN Administration LINE FLUSH Thiamine HCl 100 mg 04/18/19 10:00 04/20/19 11:09 Vitamin B-1 PO 100 mg QDAY [facility] Administration Trazodone HCl 50 mg 04/17/19 22:00 04/20/19 22:22 Desyrel PO 50 mg QHS [facility] Administration
[2019-04-21] MEDS: FOLIC ACID 1 MG TAB PO SCH (13:13)
[2019-04-21] MEDS: carvediloL 25 MG TAB PO SCH ×2 (13:13→22:53)
[2019-04-21] MEDS: FAMOTIDINE 20 MG TAB PO SCH (13:13)
[2019-04-21] MEDS: THIAMINE 100 MG TAB PO SCH (13:13)
[2019-04-21] MEDS: HEPARIN 5,000 UNIT/1 ML VIAL SUB-Q SCH ×2 (13:14→22:57)
--- NOTE | 2019-04-21 14:19 | Vascular Lab Report ---
DUPLEX DOPPLER LOWER EXTREMITY VEINS, BILATERAL INDICATION: Subacute stroke with patent foramen ovale; rule out DVT. TECHNIQUE: Duplex doppler imaging was performed through the veins of both lower extremities using venous claudy alfonso and other maneuvers. COMPARISON: None available. FINDINGS: Right Common femoral vein: Negative. Right Superficial femoral vein: Negative. Right Popliteal vein: Negative. Right Calf veins: Negative. Left Common femoral vein: Negative. Left Superficial femoral vein: Negative. Left Popliteal vein: Negative. Left Calf veins: Negative. Additional findings: There is no evidence of a popliteal cyst or other significant abnormality. IMPRESSION: No sonographic evidence for DVT in either lower extremity. Signer Name: Yaakov Guy MD Signed: 04/21/2019 2:15 PM Workstation Name: [id number]
--- NOTE | 2019-04-21 14:57 | Vascular Lab Report ---
CLINICAL DATA: Subacute stroke with PFO, r/o DVT TECHNICAL DATA: Imaging was performed from the internal jugular vein extending throughout upper extremity venous syst em using duplex sonography and color flow imaging. FINDINGS: Right upper extremity: There is normal compressibility of the internal jugular vein with normal flow characteristics. The [place] bclavian vein and innominate vein demonstrate normal flow characteristics. The axillary vein, brachial vein, ulnar vein and radial veins are compressible throughout their cours e. No intraluminal echogenicity to suggest deep venous thrombosis. Color flow imaging demonstrates no rmal augmentation. The superficial venous system echogenic material in the basilic vein with lack of compressibility Left upper extremity: There is normal compressibility of the internal jugular vein with normal flow characteristics. The [place] bclavian vein and innominate vein demonstrate normal flow characteristics. The axillary vein, brachial vein, ulnar vein and radial veins are compressible throughout their cours e. No intraluminal echogenicity to suggest deep venous thrombosis. Color flow imaging demonstrates no rmal augmentation. The superficial venous system including the basilic vein and cephalic vein are compressible throughou t course. IMPRESSION: 1. Superficial thrombophlebitis right basilic vein near the elbow region 2. No evidence of deep venous thrombosis upper extremity Signer Name: Roverto Gutierrez MD Signed: 04/21/2019 2:52 PM Workstation Name: [id number]
--- NOTE | 2019-04-21 15:21 | Anesthesia Consultation ---
Anesthesia Consult and Med Hx Date of service: 04/21/19 - Airway Anesthetic Teeth Evaluation: Good (some missing teeth) ROM Head & Neck: Adequate Mental/Hyoid Distance: Adequate Mallampati Class: Class II Intubation Access Assessment: Probably Good - Pre-Operative Health Status ASA Pre-Surgery Classification: ASA3 Proposed Anesthetic Plan: MAC - Pulmonary Hx Smoking: Yes - Cardiovascular System Hx Hypertension: Yes - Central Nervous System CVA: Yes Hx Psychiatric Problems: Yes (depression) - Other Systems Hx Alcohol Use: Yes (ETOH abuse) Hx Obesity: Yes - Additional Comments Anesthesia Medical History Comments: scheduled for ANGELICA
--- NOTE | 2019-04-21 15:28 | Progress Note ---
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 According to the patient's clinical findings, it is likely that he had metabolic encephalopathy as he was found to have YSABEL, metabolic acidosis, and hypotension. Metabolic encephalopathy has since resolved. Additionally, patient is noted to have possible subacute strokes on MRI brain. Plan: 1. Subacute strokes: - MRI brain: Noted to have subacute strokes in left subcortical region. - CTA head/neck: no significant stenosis - CT head: No acute abnormlaity - Echo: EF 55-60%, LA size normal, bubble study positive for PFO. Noted to have atrial septal aneurysm. -Recommend dual antiplatelet therapy with aspirin 81 mg daily and Plavix 75 mg daily for 30 days, after which Plavix can be stopped. Discussed risks and benefits of dual antiplatelet therapy with patient, and patient agreed to take this. - Cont. statin. LDL goal <70. - Telemetry monitoring while in house - PT/OT/ST - DVT Ppx: Recommend lovenox -Cardiology following for PFO and ASA. Plan for ANGELICA. Further, patient is also noted to have an atrial septal aneurysm, which further indicates possibility of PFO being potential etiology of strokes. - B/l UE/LE venous dopplers did not show any evidence of DVT. 2. Hypertension: - Recommend BP goal of normotension. 3. Metabolic Encephalopathy: - Patient now returned to baseline of mental status. - Cont. to treat metabolic abnormalities per primary team. - Will continue to monitor patient. Thank you for allowing me to take part in the care of this patient. Pramod Dove MD Neurology Subjective Date of service: 04/21/19 Principal diagnosis: Subacute stroke Interval history: No acute events overnight. Objective - Exam Narrative Exam: Patient is alert, awake, oriented x4, follows complex commands. Mild dysarthria noted which is his baseline. No aphasia noted. PERRL, dysconjugate gaze noted with inability for left eye to move medially which is chronic, VFF, tongue midline, bilaterally intact to LT, no facial weakness noted. 5/5 strength in all extremities. Bilaterally intact light touch. Bilaterally intact to FTN and HTS. 2+ reflexes throughout. - Vital Sign Vital Signs - 12hr 04/21/19 04/21/19 04/21/19 05:46 06:12 06:13 Temperature 99.2 F Pulse Rate 64 64 64 Respiratory 18 Rate Blood Pressure 113/81 113/81 113/81 O2 Sat by Pulse 97 Oximetry 04/21/19 04/21/19 11:12 13:13 Temperature 97.0 F L Pulse Rate 71 71 Respiratory 20 Rate Blood Pressure 166/111 166/111 O2 Sat by Pulse 100 Oximetry - General Apperance Constitutional: comfortable - EENT EENT: ATNC, PERRL, mucous membranes moist, hearing intact - Respiratory Respiratory: lungs clear, normal breath sounds - Cardiovascular Cardiovascular: regular rate, normal S1, normal S2 Extremities: no clubbing, cyanosis, no inflammation - Gastrointestinal Gastrointestinal: normoactive bowel sounds, soft, non-tender - Integumentary Integumentary: normal - Musculoskeletal Musculoskeletal: no fluid collection, no pain - Psychiatric Psychiatric: mood/affect appropriate - Laboratory Findings CBC and BMP: 04/19/19 07:23 04/21/19 05:24 Abnormal Lab Findings: Abnormal Labs 04/17/19 04/17/19 04/17/19 10:35 10:35 10:35 WBC RDW 15.6 H Lymph % (Auto) 50.3 H [place] % (Auto) 8.7 H Eos % (Auto) 5.6 H Seg Neutrophils % 35.2 L Seg Neuts % (Manual) Lymphocytes % (Manual) Monocytes % (Manual) Eosinophils % (Manual) Seg Neutrophils # Man Thrombin Time 15.0 L Carbon Dioxide 20 L BUN 40 H Creatinine 3.3 H Glucose 134 H POC Glucose Magnesium Ammonia Urine Creatinine 04/17/19 04/17/19 04/18/19 10:57 20:20 06:34 WBC RDW Lymph % (Auto) [place] % (Auto) Eos % (Auto) Seg Neutrophils % Seg Neuts % (Manual) Lymphocytes % (Manual) Monocytes % (Manual) Eosinophils % (Manual) Seg Neutrophils # Man Thrombin Time Carbon Dioxide BUN 40 H Creatinine 2.6 H Glucose 149 H POC Glucose Magnesium 2.70 H Ammonia 16.0 L Urine Creatinine 107.2 H 04/19/19 04/19/19 04/19/19 07:23 07:23 17:50 WBC 4.0 L RDW 15.3 H Lymph % (Auto) [place] % (Auto) Eos % (Auto) Seg Neutrophils % Seg Neuts % (Manual) 36.0 L Lymphocytes % (Manual) 50.0 H Monocytes % (Manual) 8.0 H Eosinophils % (Manual) 6.0 H Seg Neutrophils # Man 1.4 L Thrombin Time Carbon Dioxide BUN 27 H Creatinine 1.8 H Glucose 112 H POC Glucose 165 H Magnesium Ammonia Urine Creatinine 04/20/19 04/21/19 04:05 05:24 WBC RDW Lymph % (Auto) [place] % (Auto) Eos % (Auto) Seg Neutrophils % Seg Neuts % (Manual) Lymphocytes % (Manual) Monocytes % (Manual) Eosinophils % (Manual) Seg Neutrophils # Man Thrombin Time Carbon Dioxide BUN 21 H 23 H Creatinine 1.6 H 1.6 H Glucose 109 H 109 H POC Glucose Magnesium Ammonia Urine Creatinine
[2019-04-21] MEDS: ASPIRIN 325 MG TAB PO SCH (15:31)
[2019-04-21] MEDS: traZODone 50 MG TAB PO SCH (22:54)
[2019-04-21] MEDS: QUEtiapine 200 MG TAB PO SCH (22:54)
[2019-04-21] MEDS: NICOTINE 21 MG/24 HR PATCH TD SCH (22:55)
[2019-04-22] MEDS: cloNIDine 0.1 MG TAB PO SCH ×2 (05:32→14:33)
[2019-04-22] MEDS: hydrALAZINE 25 MG TAB PO SCH ×2 (05:33→14:32)
[2019-04-22 05:53] LABS: Calcium 9.3 mg/dL (8.4-10.2)
[2019-04-22] MEDS ORDERED: SODIUM CHLORIDE 0.9% 500 ML 500 ML IV SCH (09:00)
[2019-04-22] MEDS ORDERED: BENZOCAINE 20% TOP SPRAY 0.5 ML UNIT DOSE MM NR (09:00)
[2019-04-22] MEDS ORDERED: BENZOCAINE 20% TOP SPRAY 0.5 ML UNIT DOSE MM ONE (09:01)
--- NOTE | 2019-04-22 09:19 | Progress Note ---
Assessment and Plan S/p ANGELICA this AM which confirms PFO, mild ASA. Pt may benefit from PFO closure in setting of recurrent CVA/TIAs - will arrange pt to see Dr. Graff at [place]. Will also arrange for 30 day event monitor and f/u as OP. Cont DAPT as per neurology recs. Pt to present for initiation of 30 day event monitor in our [place] office on 04/23/2019 @ 11:30AM. Follow up in our [place] office with Dr. Velasquez Abdi on 06/04/2019 @ 1:45PM. The patient has been seen in conjunction with Dr. Velasquez Abdi who agrees with the assessment and plan of care. - Patient Problems (1) Stroke Current Visit: Yes Status: Suspected Qualifiers: CVA mechanism: unspecified Qualified Code(s): I63.9 - Cerebral infarction, unspecified (2) Atrial septal aneurysm Current Visit: Yes Status: Chronic (3) PFO (patent foramen ovale) Current Visit: Yes Status: Chronic (4) History of CVA (cerebrovascular accident) Current Visit: Yes Status: Chronic (5) History of recurrent TIAs Current Visit: Yes Status: Chronic (6) Hypertension Current Visit: Yes Status: Chronic Qualifiers: Hypertension type: essential hypertension Qualified Code(s): I10 - Essential (primary) hypertension (7) Acute kidney injury Current Visit: Yes Status: Acute (8) Alcohol use Current Visit: Yes Status: Chronic (9) Tobacco use Current Visit: Yes Status: Chronic Subjective Date of service: 04/22/19 Principal diagnosis: Subacute stroke Interval history: pt for ANGELICA today. no current complaints. in SR on tele with infrequent 2-3 beat runs NSVT overnight, pt asymptomatic. Objective Last Vital Signs Temp 98.4 F 04/22/19 04:34 Pulse 4 L 04/22/19 05:33 Resp 18 04/22/19 04:34 BP 128/93 04/22/19 05:33 Pulse Ox 99 04/22/19 04:34 - Physical Examination General: No Apparent Distress HEENT: Positive: PERRL, Normocephaly, Mucus Membranes Moist Neck: Positive: neck supple, trachea midline Cardiac: Positive: Reg Rate and Rhythm, S1/S2 Lungs: Positive: Decreased Breath Sounds Neuro: Positive: Grossly Intact Abdomen: Negative: Tender Skin: Negative: Rash Musculoskeletal: No Pain Extremities: Absent: edema - Labs and Meds Comprehensive Metabolic Panel 04/22/19 Range/Units 04:08 Sodium 141 (137-145) mmol/L Potassium 3.5 L (3.6-5.0) mmol/L Chloride 101.7 (98-107) mmol/L Carbon Dioxide 23 (22-30) mmol/L BUN 25 H (9-20) mg/dL Creatinine 1.7 H (0.8-1.5) mg/dL Glucose 115 H (75-100) mg/dL Calcium 9.3 (8.4-10.2) mg/dL - Imaging and Cardiology EKG: report reviewed, image reviewed Echo: report reviewed - EKG Sinus rhythms and dysrhythmias: sinus rhythm AV and intraventricular conduction: intraventricular conducti
[2019-04-22] MEDS: carvediloL 25 MG TAB PO SCH (10:00)
[2019-04-22] MEDS: FOLIC ACID 1 MG TAB PO SCH (10:00)
[2019-04-22] MEDS: HEPARIN 5,000 UNIT/1 ML VIAL SUB-Q SCH (10:00)
[2019-04-22] MEDS ORDERED: CLOPIDOGREL 75 MG TAB PO SCH (10:00)
[2019-04-22] MEDS ORDERED: ASPIRIN EC 81 MG TAB PO SCH (10:00)
[2019-04-22] MEDS ORDERED: propofoL 200 MG/20 ML VIAL IV ONE ×2 (10:07→10:08)
--- NOTE | 2019-04-22 11:19 | Post Anesthesia Evaluation ---
- Post Anesthesia Evaluation Patient Participated: Yes Airway Patent: Yes Stable Respiratory Function: Yes Nausea/Vomiting: No Temp > 96.8F: Yes Pain Manageable: Yes Adequeate Hydration: Yes Anesthesia Complications: No Block Receding Appropriately: Not Applicable Patient on Ventilator: No
--- NOTE | 2019-04-22 11:19 | Anesthesia Day of Surgery ---
Anesthesia Day of Surgery - Day of Surgery Patient Examined: Yes Patient H&P Reviewed: Yes Patient is NPO: Yes
[2019-04-22] MEDS ORDERED: POTASSIUM CHLORIDE ER 20 MEQ TAB PO SCH (12:36)
--- NOTE | 2019-04-22 12:38 | Progress Note ---
Assessment and Plan 1. Acute kidney injury: Acute kidney injury secondary to vasomotor nephropathy in the setting of hypotension. Creatinine level was 1.1 in 2016. Renal US negative for hydronephrosis. Patient also received IV contrast 04/17. Creatinine is currently stable. Renal function improving. Monitor renal function. Renal prognosis is guarded. Avoid nephrotoxic agents. Meds dosage based on GFR. 2. FEN: Metabolic acidosis, improved, monitor. Hypokalemia, replete K, monitor. Monitor lytes. 3. Acute CVA. MRI/MRA-no evidence of acute ischemic injury. Neuro following. 4. Hypertension: Hydralazine increased to 100 mg TID on 04/19. BP appears controlled now. 5. EtOH dependence: CIWA protocol. 6. Bipolar. 7. PFO: ANGELICA 04/22. Cards following. Subjective Date of service: 04/22/19 Principal diagnosis: Subacute stroke Interval history: Patient was seen and examined at the bedside. Sister is present at time of exam. No acute events overnight. Had ANGELICA this morning. Objective - Exam Narrative Exam: General appearance: well-developed, well-nourished, appears stated age, no distress HEENT: ATNC, ANTHONY, hearing intact Neck: Present: neck supple, trachea midline Respiratory: Clear to Ascultation Heart: regular, S1S2, no murmurs Gastrointestinal: soft, normoactive bowel sounds, not tender, not distended Integumentary: no rash, warm and dry Neurologic: no asterixis, alert and oriented x3, bilateral decreased eye sight Ext: no edema Psychiatric: cooperative, alert - Vital Signs Vital signs: Vital Signs - 12hr 04/22/19 04/22/19 04/22/19 04:33 04:34 05:32 Temperature 98.4 F Temperature [ Post-Procedure] Temperature [ Pre-Procedure] Pulse Rate 67 68 64 Pulse Rate [ Intra-Procedure ] Pulse Rate [ Post-Procedure] Pulse Rate [Pre -Procedure] Respiratory 18 Rate Respiratory Rate [Intra- Procedure] Respiratory Rate [Post- Procedure] Respiratory Rate [Pre- Procedure] Blood Pressure 128/93 128/93 Blood Pressure [Intra- Procedure] Blood Pressure [Post-Procedure ] Blood Pressure [Pre-Procedure] O2 Sat by Pulse 99 99 Oximetry O2 Sat by Pulse Oximetry [ Intra-Procedure ] O2 Sat by Pulse Oximetry [Post -Procedure] O2 Sat by Pulse Oximetry [Pre- Procedure] 04/22/19 04/22/19 04/22/19 05:33 10:03 10:12 Temperature Temperature [ Post-Procedure] Temperature [ 97.9 F Pre-Procedure] Pulse Rate 4 L Pulse Rate [ Intra-Procedure ] Pulse Rate [ Post-Procedure] Pulse Rate [Pre 65 72 -Procedure] Respiratory Rate Respiratory Rate [Intra- Procedure] Respiratory Rate [Post- Procedure] Respiratory 16 18 Rate [Pre- Procedure] Blood Pressure 128/93 Blood Pressure [Intra- Procedure] Blood Pressure [Post-Procedure ] Blood Pressure 145/95 142/97 [Pre-Procedure] O2 Sat by Pulse Oximetry O2 Sat by Pulse Oximetry [ Intra-Procedure ] O2 Sat by Pulse Oximetry [Post -Procedure] O2 Sat by Pulse 100 100 Oximetry [Pre- Procedure] 04/22/19 04/22/19 04/22/19 10:16 10:22 10:28 Temperature Temperature [ 97.8 F Post-Procedure] Temperature [ Pre-Procedure] Pulse Rate Pulse Rate [ 82 Intra-Procedure ] Pulse Rate [ 82 74 Post-Procedure] Pulse Rate [Pre -Procedure] Respiratory Rate Respiratory 22 Rate [Intra- Procedure] Respiratory 16 12 Rate [Post- Procedure] Respiratory Rate [Pre- Procedure] Blood Pressure Blood Pressure 151/107 [Intra- Procedure] Blood Pressure 113/78 123/85 [Post-Procedure ] Blood Pressure [Pre-Procedure] O2 Sat by Pulse Oximetry O2 Sat by Pulse 100 Oximetry [ Intra-Procedure ] O2 Sat by Pulse 99 100 Oximetry [Post -Procedure] O2 Sat by Pulse Oximetry [Pre- Procedure] 04/22/19 04/22/19 04/22/19 10:37 10:46 10:55 Temperature Temperature [ Post-Procedure] Temperature [ Pre-Procedure] Pulse Rate Pulse Rate [ Intra-Procedure ] Pulse Rate [ 66 65 67 Post-Procedure] Pulse Rate [Pre -Procedure] Respiratory Rate Respiratory Rate [Intra- Procedure] Respiratory 16 18 16 Rate [Post- Procedure] Respiratory Rate [Pre- Procedure] Blood Pressure Blood Pressure [Intra- Procedure] Blood Pressure 115/74 119/90 118/88 [Post-Procedure ] Blood Pressure [Pre-Procedure] O2 Sat by Pulse Oximetry O2 Sat by Pulse Oximetry [ Intra-Procedure ] O2 Sat by Pulse 100 100 99 Oximetry [Post -Procedure] O2 Sat by Pulse Oximetry [Pre- Procedure] 04/22/19 04/22/19 11:06 11:24 Temperature 98.0 F Temperature [ Post-Procedure] Temperature [ Pre-Procedure] Pulse Rate 66 Pulse Rate [ Intra-Procedure ] Pulse Rate [ 65 Post-Procedure] Pulse Rate [Pre -Procedure] Respiratory 22 Rate Respiratory Rate [Intra- Procedure] Respiratory 18 Rate [Post- Procedure] Respiratory Rate [Pre- Procedure] Blood Pressure 155/94 Blood Pressure [Intra- Procedure] Blood Pressure 144/90 [Post-Procedure ] Blood Pressure [Pre-Procedure] O2 Sat by Pulse 99 Oximetry O2 Sat by Pulse Oximetry [ Intra-Procedure ] O2 Sat by Pulse 100 Oximetry [Post -Procedure] O2 Sat by Pulse Oximetry [Pre- Procedure] - Lab 04/19/19 07:23 04/22/19 04:08 Most recent lab results Calcium 9.3 mg/dL (8.4-10.2) 04/22/19 04:08 Phosphorus 3.50 mg/dL (2.5-4.5) 04/18/19 06:34 Magnesium 2.70 mg/dL (1.7-2.3) H 04/18/19 06:34 Urine Creatinine 107.2 mg/dL (0.1-20.0) H 04/17/19 20:20 Urine Sodium 111 mmol/L 04/17/19 20:20 Medications & Allergies - Medications Allergies/Adverse Reactions: Allergies tomato Allergy (Verified 04/21/19 09:44) Hives Home Medications: Home Medications Medication Instructions Recorded Confirmed Last Taken Type Aspirin [Adult Low Dose Aspirin EC] 81 mg PO DAILY 10/06/15 04/17/19 Unknown History Lisinopril [Zestril] 40 mg PO DAILY 10/06/15 04/17/19 Unknown History QUEtiapine [SEROquel] 200 mg PO QHS 10/06/15 04/17/19 Unknown History Famotidine [Pepcid] 20 mg PO BID #30 tablet 10/08/15 04/17/19 Unknown Rx Nicotine [Habitrol] 21 mg TD QDAY@2200 #30 patch 10/08/15 04/17/19 Unknown Rx amLODIPine 10 mg PO QDAY #30 tablet 10/08/15 04/17/19 Unknown Rx cloNIDine [Catapres] 0.1 mg PO Q8H #90 tablet 10/08/15 04/17/19 Unknown Rx Chlorthalidone [Thalitone] 25 mg PO QDAY #30 tablet 01/04/19 04/17/19 Unknown Rx carvediloL [Coreg] 25 mg PO BID #60 tablet 01/04/19 04/17/19 Unknown Rx lisinopriL [Zestril TAB] 40 mg PO QDAY #30 tablet 01/04/19 04/17/19 Unknown Rx Active Medications: Generic Name Dose Route Start Last Admin Trade Name Freq PRN Reason Stop Dose Admin Acetaminophen 650 mg 04/17/19 12:40 Tylenol PO Q4H PRN Pain, Mild (1-3) Albuterol 2.5 mg 04/17/19 12:40 Proventil IH Q3HRT PRN Shortness Of Breath Aspirin 81 mg 04/22/19 10:00 Halfprin Ec PO QDAY ALEJANDRINA Atorvastatin Calcium 40 mg 04/17/19 22:00 04/21/19 22:53 Lipitor PO 40 mg QHS ALEJANDRINA Administration Benzocaine 3 spray 04/22/19 09:00 04/22/19 10:28 Hurricaine One 20% Topical [place] MM 04/23/19 08:59 3 spray PREOP NR Administration Bisacodyl 10 mg 04/17/19 12:40 Dulcolax [place] QDAY PRN Constipation Carvedilol 25 mg 04/17/19 22:00 04/22/19 10:00 Coreg PO Not Given BID [facility] Clonidine HCl 0.1 mg 04/21/19 00:00 04/22/19 05:32 Catapres PO 0.1 mg Q8HR ALEJANDRINA Administration Clopidogrel Bisulfate 75 mg 04/22/19 10:00 Plavix PO QDAY [facility] Famotidine 20 mg 04/17/19 22:00 04/21/19 13:13 Pepcid PO 20 mg DAILY ALEJANDRINA Administration Folic Acid 1 mg 04/18/19 10:00 04/22/19 10:00 Folvite PO Not Given QDAY [facility] Heparin Sodium (Porcine) 5,000 unit 04/17/19 22:00 04/22/19 10:00 Heparin SUB-Q Not Given Q12HR [facility] Hydralazine HCl 100 mg 04/19/19 18:21 04/22/19 05:33 Apresoline PO 100 mg Q8HR ALEJANDRINA Administration Sodium Chloride 500 mls @ 50 mls/hr 04/22/19 09:00 04/22/19 10:00 Nacl 0.9% 500 Ml IV 50 mls/hr DIRECT ALEJANDRINA Administration Lorazepam 2 mg 04/17/19 19:33 Ativan IV Q1H PRN CIWA-Ar 8-15 Magnesium Hydroxide 30 ml 04/17/19 12:40 Milk Of Magnesia PO Q4H PRN Constipation Metoclopramide HCl 10 mg 04/17/19 12:40 Reglan PO Q6H PRN Nausea And Vomiting Nicotine 21 mg 04/17/19 22:00 04/21/19 22:55 Habitrol TD 21 mg QDAY@2200 ALEJANDRINA Administration Ondansetron HCl 4 mg 04/17/19 12:40 Zofran IV Q8H PRN Nausea And Vomiting Potassium Chloride 40 meq 04/22/19 12:36 K-Dur PO 04/22/19 12:37 ONCE ONE Promethazine HCl 25 mg 04/17/19 12:40 Phenergan [place] Q6H PRN Nausea And Vomiting Quetiapine Fumarate 200 mg 04/17/19 22:00 04/21/19 22:54 Seroquel PO 200 mg QHS ALEJANDRINA Administration Sodium Chloride 10 ml 04/17/19 12:40 04/19/19 21:18 Sodium Chloride Flush Syringe 10 Ml IV 10 ml PRN PRN Administration LINE FLUSH Thiamine HCl 100 mg 04/18/19 10:00 04/21/19 13:13 Vitamin B-1 PO 100 mg QDAY ALEJANDRINA Administration Trazodone HCl 50 mg 04/17/19 22:00 04/21/19 22:54 Desyrel PO 50 mg QHS ALEJANDRINA Administration
--- NOTE | 2019-04-22 12:45 | Progress Note ---
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 According to the patient's clinical findings, it is likely that he had metabolic encephalopathy as he was found to have YSABEL, metabolic acidosis, and hypotension. Metabolic encephalopathy has since resolved. Additionally, patient is noted to have possible subacute strokes on MRI brain. Plan: 1. Subacute strokes: - MRI brain: Noted to have subacute strokes in left subcortical region. - CTA head/neck: no significant stenosis - CT head: No acute abnormlaity - Echo: EF 55-60%, LA size normal, bubble study positive for PFO. Noted to have atrial septal aneurysm. -Recommend dual antiplatelet therapy with aspirin 81 mg daily and Plavix 75 mg daily for 30 days, after which Plavix can be stopped. Discussed risks and benefits of dual antiplatelet therapy with patient, and patient agreed to take this. - Cont. statin. LDL goal <70. - Telemetry monitoring while in house - PT/OT/ST - DVT Ppx: Recommend lovenox -Cardiology following for PFO and atrial septal aneurysm. Patient had ANGELICA which confirmed PFO. Further, patient is also noted to have an atrial septal aneurysm, which further indicates possibility of PFO being potential etiology of strokes. Per cardiology, plan is for patient to have outpatient cardiac monitoring, and follow-up for potential PFO closure. - B/l UE/LE venous dopplers did not show any evidence of DVT. 2. Hypertension: - Recommend BP goal of normotension. 3. Metabolic Encephalopathy: - Patient now returned to baseline of mental status. - Cont. to treat metabolic abnormalities per primary team. - Will sign off as neurologic investigations are complete, and treatment plan is in place. Please call with any questions. Thank you for allowing me to take part in the care of this patient. Pramod Dove MD Neurology Subjective Date of service: 04/22/19 Principal diagnosis: Subacute stroke Interval history: No acute events overnight. Objective - Exam Narrative Exam: Patient is alert, awake, oriented x4, follows complex commands. Mild dysarthria noted which is his baseline. No aphasia noted. PERRL, dysconjugate gaze noted with inability for left eye to move medially which is chronic, VFF, tongue midline, bilaterally intact to LT, no facial weakness noted. 5/5 strength in all extremities. Bilaterally intact light touch. Bilaterally intact to FTN and HTS. 2+ reflexes throughout. - Vital Sign Vital Signs - 12hr 04/22/19 04/22/19 04/22/19 04:33 04:34 05:32 Temperature 98.4 F Temperature [ Post-Procedure] Temperature [ Pre-Procedure] Pulse Rate 67 68 64 Pulse Rate [ Intra-Procedure ] Pulse Rate [ Post-Procedure] Pulse Rate [Pre -Procedure] Respiratory 18 Rate Respiratory Rate [Intra- Procedure] Respiratory Rate [Post- Procedure] Respiratory Rate [Pre- Procedure] Blood Pressure 128/93 128/93 Blood Pressure [Intra- Procedure] Blood Pressure [Post-Procedure ] Blood Pressure [Pre-Procedure] O2 Sat by Pulse 99 99 Oximetry O2 Sat by Pulse Oximetry [ Intra-Procedure ] O2 Sat by Pulse Oximetry [Post -Procedure] O2 Sat by Pulse Oximetry [Pre- Procedure] 04/22/19 04/22/19 04/22/19 05:33 10:03 10:12 Temperature Temperature [ Post-Procedure] Temperature [ 97.9 F Pre-Procedure] Pulse Rate 4 L Pulse Rate [ Intra-Procedure ] Pulse Rate [ Post-Procedure] Pulse Rate [Pre 65 72 -Procedure] Respiratory Rate Respiratory Rate [Intra- Procedure] Respiratory Rate [Post- Procedure] Respiratory 16 18 Rate [Pre- Procedure] Blood Pressure 128/93 Blood Pressure [Intra- Procedure] Blood Pressure [Post-Procedure ] Blood Pressure 145/95 142/97 [Pre-Procedure] O2 Sat by Pulse Oximetry O2 Sat by Pulse Oximetry [ Intra-Procedure ] O2 Sat by Pulse Oximetry [Post -Procedure] O2 Sat by Pulse 100 100 Oximetry [Pre- Procedure] 04/22/19 04/22/19 04/22/19 10:16 10:22 10:28 Temperature Temperature [ 97.8 F Post-Procedure] Temperature [ Pre-Procedure] Pulse Rate Pulse Rate [ 82 Intra-Procedure ] Pulse Rate [ 82 74 Post-Procedure] Pulse Rate [Pre -Procedure] Respiratory Rate Respiratory 22 Rate [Intra- Procedure] Respiratory 16 12 Rate [Post- Procedure] Respiratory Rate [Pre- Procedure] Blood Pressure Blood Pressure 151/107 [Intra- Procedure] Blood Pressure 113/78 123/85 [Post-Procedure ] Blood Pressure [Pre-Procedure] O2 Sat by Pulse Oximetry O2 Sat by Pulse 100 Oximetry [ Intra-Procedure ] O2 Sat by Pulse 99 100 Oximetry [Post -Procedure] O2 Sat by Pulse Oximetry [Pre- Procedure] 04/22/19 04/22/19 04/22/19 10:37 10:46 10:55 Temperature Temperature [ Post-Procedure] Temperature [ Pre-Procedure] Pulse Rate Pulse Rate [ Intra-Procedure ] Pulse Rate [ 66 65 67 Post-Procedure] Pulse Rate [Pre -Procedure] Respiratory Rate Respiratory Rate [Intra- Procedure] Respiratory 16 18 16 Rate [Post- Procedure] Respiratory Rate [Pre- Procedure] Blood Pressure Blood Pressure [Intra- Procedure] Blood Pressure 115/74 119/90 118/88 [Post-Procedure ] Blood Pressure [Pre-Procedure] O2 Sat by Pulse Oximetry O2 Sat by Pulse Oximetry [ Intra-Procedure ] O2 Sat by Pulse 100 100 99 Oximetry [Post -Procedure] O2 Sat by Pulse Oximetry [Pre- Procedure] 04/22/19 04/22/19 11:06 11:24 Temperature 98.0 F Temperature [ Post-Procedure] Temperature [ Pre-Procedure] Pulse Rate 66 Pulse Rate [ Intra-Procedure ] Pulse Rate [ 65 Post-Procedure] Pulse Rate [Pre -Procedure] Respiratory 22 Rate Respiratory Rate [Intra- Procedure] Respiratory 18 Rate [Post- Procedure] Respiratory Rate [Pre- Procedure] Blood Pressure 155/94 Blood Pressure [Intra- Procedure] Blood Pressure 144/90 [Post-Procedure ] Blood Pressure [Pre-Procedure] O2 Sat by Pulse 99 Oximetry O2 Sat by Pulse Oximetry [ Intra-Procedure ] O2 Sat by Pulse 100 Oximetry [Post -Procedure] O2 Sat by Pulse Oximetry [Pre- Procedure] - General Apperance Constitutional: comfortable - EENT EENT: ATNC, PERRL, mucous membranes moist, hearing intact, vision intact - Respiratory Respiratory: lungs clear, normal breath sounds - Cardiovascular Cardiovascular: regular rate, normal S1, normal S2 Extremities: no clubbing, cyanosis, no inflammation - Gastrointestinal Gastrointestinal: normoactive bowel sounds, soft, non-tender - Integumentary Integumentary: normal - Musculoskeletal Musculoskeletal: no fluid collection, no pain - Psychiatric Psychiatric: mood/affect appropriate - Laboratory Findings CBC and BMP: 04/19/19 07:23 04/22/19 04:08 Abnormal Lab Findings: Abnormal Labs 04/17/19 04/17/19 04/17/19 10:35 10:35 10:35 WBC RDW 15.6 H Lymph % (Auto) 50.3 H [place] % (Auto) 8.7 H Eos % (Auto) 5.6 H Seg Neutrophils % 35.2 L Seg Neuts % (Manual) Lymphocytes % (Manual) Monocytes % (Manual) Eosinophils % (Manual) Seg Neutrophils # Man Thrombin Time 15.0 L Potassium Carbon Dioxide 20 L BUN 40 H Creatinine 3.3 H Glucose 134 H POC Glucose Magnesium Ammonia Urine Creatinine 04/17/19 04/17/19 04/18/19 10:57 20:20 06:34 WBC RDW Lymph % (Auto) [place] % (Auto) Eos % (Auto) Seg Neutrophils % Seg Neuts % (Manual) Lymphocytes % (Manual) Monocytes % (Manual) Eosinophils % (Manual) Seg Neutrophils # Man Thrombin Time Potassium Carbon Dioxide BUN 40 H Creatinine 2.6 H Glucose 149 H POC Glucose Magnesium 2.70 H Ammonia 16.0 L Urine Creatinine 107.2 H 04/19/19 04/19/19 04/19/19 07:23 07:23 17:50 WBC 4.0 L RDW 15.3 H Lymph % (Auto) [place] % (Auto) Eos % (Auto) Seg Neutrophils % Seg Neuts % (Manual) 36.0 L Lymphocytes % (Manual) 50.0 H Monocytes % (Manual) 8.0 H Eosinophils % (Manual) 6.0 H Seg Neutrophils # Man 1.4 L Thrombin Time Potassium Carbon Dioxide BUN 27 H Creatinine 1.8 H Glucose 112 H POC Glucose 165 H Magnesium Ammonia Urine Creatinine 04/20/19 04/21/19 04/22/19 04:05 05:24 04:08 WBC RDW Lymph % (Auto) [place] % (Auto) Eos % (Auto) Seg Neutrophils % Seg Neuts % (Manual) Lymphocytes % (Manual) Monocytes % (Manual) Eosinophils % (Manual) Seg Neutrophils # Man Thrombin Time Potassium 3.5 L Carbon Dioxide BUN 21 H 23 H 25 H Creatinine 1.6 H 1.6 H 1.7 H Glucose 109 H 109 H 115 H POC Glucose Magnesium Ammonia Urine Creatinine
--- NOTE | 2019-04-22 13:13 | Discharge Summary ---
Providers - Providers Date of Admission: 04/19/19 12:47 Date of discharge: 04/22/19 Attending physician: SHERRY VINSON 04/17/19 12:40 Occupational Therapy Evaluate and Treat [CONS] Routine Comment: Reason For Exam: Neuro deficits Physical Therapy Evaluation and Treat [CONS] Routine Comment: Reason For Exam: Neuro deficits 04/17/19 12:41 Speech Therapy Evaluation and Treat [CONS] Routine Reason For Exam: swallow eval 04/17/19 17:37 Consult to Physician [CONS] Routine Comment: Consulting Provider: TANIA SIBLEY Physician Instructions: Reason For Exam: rafael 04/20/19 07:42 Consult to Physician [CONS] Routine Comment: Consulting Provider: MONTY ASHER Physician Instructions: Reason For Exam: altered mental status 04/21/19 08:57 Consult to Physician [CONS] Routine Comment: Consulting Provider: NICOLE CRAWFORD Physician Instructions: Reason For Exam: atrial septal aneurysm, multiple strokes, TIA Primary care physician: CLIENT SUPPORT ASSOCIATE Hospitalization Condition: Fair Disposition: DC-01 TO HOME OR SELFCARE - Discharge Diagnoses (1) CVA (cerebral vascular accident) Status: Acute Core Measure Documentation - Palliative Care Palliative Care/ Comfort Measures: Not Applicable - Core Measures Any of the following diagnoses?: stroke - Stroke Discharge Requirements Statin for LDL = or >70 mg/dl on DC: Yes Anticoag for atrial fib/atrial flutter: Not Applicable Antithrombotic for ischemic stroke: Yes Exam - Constitutional Vitals: Temp Pulse Resp BP Pulse Ox 98.0 F 66 22 155/94 99 04/22/19 11:24 04/22/19 11:24 04/22/19 11:24 04/22/19 11:24 04/22/19 11:24 Plan Activity: advance as tolerated Diet: low fat, low cholesterol, low salt, renal Special Instructions: physical therapy (outpatient) Durable Medical Equipment Needed Upon Discharge: Cane-Quad Plan of Treatment: 1.Follow up with PCP or [facility] in 1 week. 2.Follow up with Neurology in 1 week. 3.Follow up with Cardiology tomorrow 04/23/19 11;30am for outpatient event monitor. 4.follow up with Dr. Shanna Crawford on 06/04/19 5.cardiology to arrange to see Dr. Graff at [place] for surgery for PFO Follow up with: PRIMARY CARE, [Primary Care Provider] - 7 Days NICOLE CRAWFORD MD [Staff Physician] - 7 Days (Pt to present for initiation of 30 day event monitor in our [place] office on 04/23/2019 @ 11:30AM. Follow up in our [place] office with Dr. Velasquez Crawford on 06/04/2019 @ 1:45PM. ) Prescriptions: amLODIPine 10 mg PO QDAY #30 tablet cloNIDine [Catapres] 0.1 mg PO Q8H #90 tablet carvediloL [Coreg] 25 mg PO BID #60 tablet Aspirin EC [Halfprin EC] 81 mg PO QDAY #30 tablet AtorvaSTATin [Lipitor] 40 mg PO QHS #30 tablet Clopidogrel [Plavix] 75 mg PO QDAY #30 tablet Other Discharge Orders: Physicial Therapy (Amb) Location: None Selected
[2019-04-22] MEDS: THIAMINE 100 MG TAB PO SCH (14:28)
[2019-04-22] MEDS: FAMOTIDINE 20 MG TAB PO SCH (14:28)
[2019-04-22 14:34] VITALS: BP 133/78
== END 2019-04-22 15:05 | disposition home or self-care (01) | DRG 64 ==
LOC: ED 10:12 → 3A 12:40 → OBSVTOIN 04-19 12:47
PROVIDERS: ADMIT Internal Medicine; ATTEND Internal Medicine
DX: I63.9 Cerebral infarction, unspecified (principal); N17.0 Acute kidney failure with tubular necrosis; G93.41 Metabolic encephalopathy; E87.2 Acidosis; I10 Essential (primary) hypertension; Z71.6 Tobacco abuse counseling; F10.20 Alcohol dependence, uncomplicated
CPT/HCPCS: 36415; 70450; 70496; 70498; 70544; 70551; 76770; 80048; 80061; 80076; 80307; 80320; 81001; 82140; 82570; 82962; 83735; 84100; 84300; 84484; 85007; 85025; 85220; 85301; 85305; 85610; 85670; 85730; 93005; 93010; 93306; 93312; 93320; 93325; 93880; 93970; 94640; 99406; G0378; A9270-GY; G0480; J1644; J2704; J7030; J7040; Q9967

== ENCOUNTER 2020-05-19 15:05 | Inpatient (IN) | payer MEDICAID ==
--- NOTE | 2020-05-19 15:10 | Event Note ---
Date: 05/19/20 The patient was evaluated in the emergency department for symptoms described in the history of present illness. He/she was evaluated in the context of the global COVID-19 pandemic, which necessitated consideration that the patient might be at risk for infection with the virus that causes COVID-19. Institutional protocols and algorithms that pertain to the evaluation of patients at risk for COVID-19 are in a state of rapid change based on information released by regulatory bodies including the CDC and federal and state organizations. These policies and algorithms were followed during the patient's care in the emergency department. Please note that these policies, procedures and recommendations changed on a rapid basis. 55-year-old gentleman with history of stroke, alcoholism, hypertension, brought to the hospital by EMS with a complaint of weakness, change in mental status, found down in garage at home by family, for uncertain duration of time, and via uncertain mechanism, last known well time as per EMS is 8:00 this morning. They are concerned about an acute stroke. Accu-Chek within normal limits. Patient awake, breathing spontaneously, and appears confused. Obtain stat CT scan of the brain, cervical spine, x-ray the chest, laboratory studies, and reassess. Not a TPA candidate as last known well time was greater than 4.5 hours prior to presentation to this emergency room. Apparently has a history of similar symptoms in the past. Also has a history of alcoholism.
[2020-05-19] MEDS ORDERED: NALOXONE 2 MG/2 ML INJ IV ONE (15:30)
--- NOTE | 2020-05-19 15:30 | Cat Scan Report ---
CT head/brain wo con INDICATION / CLINICAL INFORMATION: 55 years Male; MAIN. Slurred speech and altered mental status TECHNIQUE: Routine CT head without contrast. All CT scans at this location are performed using CT dos e reduction for ALARA by means of automated exposure control. COMPARISON: 12/20/2019 FINDINGS: BRAIN / INTRACRANIAL CONTENTS: Small lacunar infarcts seen in the thalamic regions bilaterally-not si gnificantly changed from prior. Otherwise, no acute hemorrhage, mass effect, midline shift, hydrocephalus, or acute, large territori al infarct. Moderate cerebral and cerebellar atrophy noted. There are moderate, somewhat confluent areas of decreased attenuation in the white matter of the cere bral hemispheres, as well as the gangliocapsular regions. These are nonspecific findings and may be r elated to microangiopathy (hypertension, diabetes, atherosclerosis), given the patient's age. CRANIOCERVICAL JUNCTION: No significant abnormality. ORBITS: No significant abnormality of visualized orbits. SINUSES / MASTOIDS: Minimal mucosal thickening seen in the ethmoids. ADDITIONAL FINDINGS: Prominent soft tissue is seen in the roof the nasopharynx, presumably related to reactive adenoidal tissue. Please clinically correlate. Atherosclerotic disease is seen in the anterior and posterior circulation. IMPRESSION: 1. No focal mass, hemorrhage, hydrocephalus, or acute, large territorial infarct. Follow-up with diff usion imaging by MRI, as clinically warranted. CODE STROKE: Exam Completed (QC SCIENTIST/CDT): 05/19/2020 2:19 PM Exam Reviewed (QC SCIENTIST/CDT): 2:22 PM Time of Communication (QC SCIENTIST/CDT): 2:24 PM Licensed Practitioner Receiving Report: Dr. Hill and/or colleague Signer Name: Surya Santana MD, III Signed: 05/19/2020 3:25 PM Workstation Name: [id number]
[2020-05-19] MEDS ORDERED: NALOXONE 2 MG/2 ML INJ ONE (15:34)
--- NOTE | 2020-05-19 15:37 | Cat Scan Report ---
CT CERVICAL SPINE WITHOUT CONTRAST INDICATION / CLINICAL INFORMATION: Altered mental status. Weakness. Patient found down. TECHNIQUE: Axial CT images were obtained through the cervical spine. Sagittal and coronal reformatted images wer e produced. All CT scans at this location are performed using CT dose reduction for ALARA by means of automated exposure control. COMPARISON: CTA neck 04/17/2019 FINDINGS: ALIGNMENT: Normal alignment is maintained throughout cervical region. There is no indication of traum atic subluxation. VERTEBRAE: No indication of fracture or bone destruction. Anterior osteophyte formation is noted at t he C4-5, C5-6 and C6-7 levels. DISC SPACES: Disc height is fairly well-maintained throughout. DEGENERATIVE CHANGES: Anterior osteophyte formation is noted at the C4-5, C5-6 and C6-7 levels. Minim al posterior osteophyte is observed at C2-3 and C3-4 levels. Small disc protrusion is identified at t he C3-4 level without significant thecal sac compression. Central spinal canal and neuroforamina are adequately maintained. CRANIOCERVICAL JUNCTION:No significant abnormality. SPINAL CANAL: Central spinal canal is adequately maintained throughout. PARASPINAL SOFT TISSUES: No significant abnormality. LUNG APICES: Lung apices are largely excluded. IMPRESSION: 1. No indication of fracture or traumatic subluxation. 2. Widespread mild cervical spondylosis. 3. Findings are unchanged in comparison to CT neck 04/17/2019. Signer Name: Rj Allen MD Signed: 05/19/2020 3:32 PM Workstation Name: [id number]
--- NOTE | 2020-05-19 15:40 | XRay Report ---
CHEST 1 VIEW 05/19/2020 3:16 PM INDICATION / CLINICAL INFORMATION: Altered Mental Status. COMPARISON: None available. FINDINGS: SUPPORT DEVICES: None. HEART / MEDIASTINUM: No significant abnormality. LUNGS / PLEURA: No significant pulmonary or pleural abnormality. No pneumothorax. ADDITIONAL FINDINGS: No significant additional findings. IMPRESSION: 1. No acute findings. Signer Name: Ricco Gilmore MD Signed: 05/19/2020 3:36 PM Workstation Name: [id number]
[2020-05-19 15:41] LABS: Basophils % (Auto) 0.2 % (0.0-1.8); Eosinophils # (Auto) 0.1 K/mm3 (0.0-0.4); Hematocrit 37.8 % (35.5-45.6); Hemoglobin 12.2 gm/dl (11.8-15.2); Lymphocytes % (Auto) 42.6 % (13.4-35.0); Mean Corpuscular HGB Conc 32 % (32-34); Mean Corpuscular Volume 90 fl (84-94); Monocytes # (Auto) 0.3 K/mm3 (0.0-0.8); Monocytes % (Auto) 6.6 % (0.0-7.3); Platelet Count 213 K/mm3 (140-440); Red Cell Distribution Width 15.5 % (13.2-15.2)
--- NOTE | 2020-05-19 15:43 | Consultation ---
Medications and Allergies Allergies Allergy/AdvReac Type Severity Reaction Status Date / Time tomato Allergy Hives Verified 04/21/19 09:44 Home Medications Medication Instructions Recorded Confirmed Last Taken Type Aspirin 325 mg PO QDAY #30 tablet 12/24/19 Unknown Rx Aspirin EC [Ecotrin] 325 mg PO QDAY #30 tablet. 12/24/19 Unknown Rx Aspirin EC [Ecotrin] 325 mg PO QDAY #7 tablet. 12/24/19 Unknown Rx AtorvaSTATin [Lipitor] 40 mg PO QHS #30 tablet 12/24/19 Unknown Rx Chlorthalidone [Thalitone] 25 mg PO QDAY #30 tablet 12/24/19 Unknown Rx Clopidogrel [Plavix] 75 mg PO QDAY #21 tablet 12/24/19 Unknown Rx Clopidogrel [Plavix] 75 mg PO QDAY #30 tablet 12/24/19 Unknown Rx Famotidine [Pepcid] 20 mg PO BID #30 tablet 12/24/19 Unknown Rx QUEtiapine [SEROquel] 200 mg PO QHS #30 12/24/19 Unknown Rx amLODIPine 10 mg PO QDAY #30 tablet 12/24/19 Unknown Rx carvediloL [Coreg] 25 mg PO BID #60 tablet 12/24/19 Unknown Rx cloNIDine [Catapres] 0.1 mg PO Q8H #90 tablet 12/24/19 Unknown Rx Results - Laboratory Findings CBC and BMP: 05/19/20 15:28 Abnormal Lab Findings: Abnormal Labs 05/19/20 05/19/20 15:07 15:28 RDW 15.5 H Lymph % (Auto) 42.6 H POC Glucose 111 H Assessment and Plan [facility] Consult Note # Demographics Consult Type: 6-24 hour Stroke First Name: Darrian Last Name: Jani Date of : 1965 Age: 55 Gender: male Time of initial page ([place] Time): 05-19-2020, 13:12 Time of return call (Aledia Time): 05-19-2020, 13:12 # HPI Additional History: 55M reportedly found down by family. 2-3 weeks ago this EMS interacted with patient, supposed to be on dialysis but does not get it done. HTN and blood glucose issues reported. 08:00 ok and then found by family down in garage. BG ok reportedly. Right side weakness noted. Slurred speech reported. # Scores Time of exam and NIHSS ([place] ): 05-19-2020, 13:40:00 Level of Consciousness 1a: [2] = Not alert; requires strong or painful stim LOC Questions 1b: [2] = Answers neither correctly LOC Commands 1c: [0] = Performs both tasks correctly Best Gaze 2: [0] = Normal Visual 3: [0] = No visual loss Facial Palsy 4: [1] = Minor paralysis Motor Arm Left 5a: [2] = Some effort against gravity Motor Arm Right 5b: [1] = Drift Motor Leg Left 6a: [1] = Drift Motor Leg Right 6b: [1] = Drift Limb Ataxia 7: [0] = Absent Sensory 8: [0] = Normal Best Language 9: [0] = No aphasia Dysarthria 10: [2] = Severe dysarthria Extinction and Inattention 11: [0] = No abnormality NIHSS Total: 12 # PMH-FH-SH Past Medical History: stroke # Data Time Head CT personally ready by me (): 05-19-2020, 13:[address]: preliminarily reviewed by me, please refer to radiology read for official reading, no bleed # Assessment Impression: Altered Mental Status, with prior stroke deficit vs new stroke. # Plan Thrombolytic/Intervention: NOT IV Alteplase or IA Intervention Alteplase Exclusion (<3 hour window): time of onset unclear Alteplase Exclusion: > 4.5 hours Intraarterial Exclusion: no large vessel occlusion (LVO) Blood Pressure Target: SBP < 220 Imaging: (urgency: routine admission): MRI Brain without contrast Medication: aspirin 81 mg PLUS clopidogrel (Plavix) 75 mg for 21 days, then monotherapy therafter, start statin with goal of LDL < 70 Other: telemetry monitoring, I have discussed my recommendations with the amador ortiz provider Disposition: admit
--- NOTE | 2020-05-19 15:48 | Cat Scan Report ---
CTA NECK WITH CONTRAST HISTORY: Slurred speech COMPARISON: None. TECHNIQUE: Routine CTA of the neck was performed. 3-D/MIP reformats were postprocessed. Percentage s tenosis is determined by direct quantitative measurements of diseased internal carotid artery diamete r compared with normal distal internal carotid artery reference segments or by criteria similar to NA SCET where applicable.All CT scans at this location are performed using CT dose reduction for ALARA b y means of automated exposure control CONTRAST: 100 ml of Omnipaque 350 FINDINGS: Aortic arch: No significant abnormality. Cervical vertebral arteries: No significant abnormality. Common carotid arteries: No significant abnormality. Carotid bifurcations: Normal Cervical internal carotid arteries: No significant abnormality. Additional findings: Pharyngeal mucosal space lymphoid hyperplasia IMPRESSION: 1. No significant abnormality. Signer Name: Yves Fernandez MD Signed: 05/19/2020 3:44 PM Workstation Name: [id number]
[2020-05-19 15:53] LABS: INR 1.08 (0.87-1.13)
[2020-05-19 15:54] LABS: Partial Thromboplastin Time 29.1 Sec. (24.2-36.6)
[2020-05-19 16:08] LABS: Alanine Aminotransferase 9 units/L (7-56); Albumin 3.6 g/dL (3.9-5); BUN/Creatinine Ratio 14; Blood Urea Nitrogen 23 mg/dL (9-20); Calcium 8.4 mg/dL (8.4-10.2); Hemolysis Index 2
--- NOTE | 2020-05-19 16:10 | Cat Scan Report ---
CTA HEAD WITH CONTRAST HISTORY: Slurred speech COMPARISON: None. TECHNIQUE: Routine non-contrast CT Head, CTA of the head and post-contrast CT Head are performed. 3-D /MIP reformats postprocessed. All CT scans at this location are performed using CT dose reduction for ALARA by means of automated exposure control CONTRAST: 100 ml of Omnipaque 350 FINDINGS: CTA Head: Intracranial vertebral arteries: Right vertebral artery is the dominant artery: Minimal nonstenotic c alcified atherosclerotic plaque; atherosclerotic changes with stenoses in the intradural segment of t he left vertebral artery Basilar artery: No significant abnormality. Posterior cerebral arteries: Patent bilaterally but focal areas of narrowing in the P2 and P3 segment s bilaterally Intracranial internal carotid arteries: Both internal carotid arteries are patent; nonstenotic athero sclerotic narrowing in the communicating segment of the left internal carotid artery; vascular calcif ication bilaterally Anterior cerebral arteries: No significant abnormality. Atherosclerotic narrowing in the A2 segment b ilaterally Middle cerebral arteries: Both the M1 segments are normal; small vessel disease in the branches of le ft middle cerebral artery Dural venous sinuses:Not optimally opacified. No significant abnormality. Additional findings: None. IMPRESSION: 1. [place] and middle cerebral artery trifurcations normal; small vessel disease in the post erior, anterior and middle cerebral artery branches Atherosclerotic disease in the left vertebral artery (intradural segment) Signer Name: Yves Fernandez MD Signed: 05/19/2020 4:05 PM Workstation Name: [id number]
--- NOTE | 2020-05-19 16:16 | Emergency Department Report ---
ED Neuro Deficit HPI - General Chief Complaint: Altered Mental Status Stated Complaint: STROKE Time Seen by Provider: 05/19/20 15:10 Source: EMS Mode of arrival: Stretcher Limitations: No Limitations - History of Present Illness Initial Comments: Chief complaint: Altered mental status HPI: This is a 55-year-old male with history of TIA, CVA, end-stage renal disease, cerebral aneurysm, alcohol dependence, hypertension, PFO, atrial septal aneurysm, tobacco use, hyperlipidemia, GERD who presents with altered mental status. He was found down by family members. Last known well time 8 AM according to EMS. Patient has slurred speech. Possible right-sided weakness. He tells me his name "Darrian". However he does not get further history. -: This morning Location: speech Presenting Symptoms: Present: Weak/Paralyzed One Side History of same: Yes Place: home Severity: severe Improves With: none Worsens With: none Context: sudden onset - Related Data Home Medications: Previous Rx's Medication Instructions Recorded Last Taken Type Aspirin 325 mg PO QDAY #30 tablet 12/24/19 Unknown Rx Aspirin EC [Ecotrin] 325 mg PO QDAY #30 tablet. 12/24/19 Unknown Rx Aspirin EC [Ecotrin] 325 mg PO QDAY #7 tablet. 12/24/19 Unknown Rx AtorvaSTATin [Lipitor] 40 mg PO QHS #30 tablet 12/24/19 Unknown Rx Chlorthalidone [Thalitone] 25 mg PO QDAY #30 tablet 12/24/19 Unknown Rx Clopidogrel [Plavix] 75 mg PO QDAY #21 tablet 12/24/19 Unknown Rx Clopidogrel [Plavix] 75 mg PO QDAY #30 tablet 12/24/19 Unknown Rx Famotidine [Pepcid] 20 mg PO BID #30 tablet 12/24/19 Unknown Rx QUEtiapine [SEROquel] 200 mg PO QHS #30 12/24/19 Unknown Rx amLODIPine 10 mg PO QDAY #30 tablet 12/24/19 Unknown Rx carvediloL [Coreg] 25 mg PO BID #60 tablet 12/24/19 Unknown Rx cloNIDine [Catapres] 0.1 mg PO Q8H #90 tablet 12/24/19 Unknown Rx Allergies/Adverse Reactions: Allergies Allergy/AdvReac Type Severity Reaction Status Date / Time tomato Allergy Hives Verified 04/21/19 09:44 ED Review of Systems ROS: Stated complaint: STROKE Other details as noted in HPI Comment: Unobtainable due to pts medical conditions (Altered mental status) ED Past Medical Hx - Past Medical History Previous Medical History?: Yes Hx Hypertension: Yes Hx CVA: Yes Additional medical history: Cerebral Aneurysm - Social History Smoking Status: Current Every Day Smoker Substance Use Type: Alcohol - Medications Home Medications: Home Medications Medication Instructions Recorded Confirmed Last Taken Type Aspirin 325 mg PO QDAY #30 tablet 12/24/19 Unknown Rx Aspirin EC [Ecotrin] 325 mg PO QDAY #30 tablet. 12/24/19 Unknown Rx Aspirin EC [Ecotrin] 325 mg PO QDAY #7 tablet. 12/24/19 Unknown Rx AtorvaSTATin [Lipitor] 40 mg PO QHS #30 tablet 12/24/19 Unknown Rx Chlorthalidone [Thalitone] 25 mg PO QDAY #30 tablet 12/24/19 Unknown Rx Clopidogrel [Plavix] 75 mg PO QDAY #21 tablet 12/24/19 Unknown Rx Clopidogrel [Plavix] 75 mg PO QDAY #30 tablet 12/24/19 Unknown Rx Famotidine [Pepcid] 20 mg PO BID #30 tablet 12/24/19 Unknown Rx QUEtiapine [SEROquel] 200 mg PO QHS #30 12/24/19 Unknown Rx amLODIPine 10 mg PO QDAY #30 tablet 12/24/19 Unknown Rx carvediloL [Coreg] 25 mg PO BID #60 tablet 12/24/19 Unknown Rx cloNIDine [Catapres] 0.1 mg PO Q8H #90 tablet 12/24/19 Unknown Rx ED Neuro Physical Exam - General Limitations: No Limitations General appearance: in no apparent distress, lethargic Suspected Stroke: Yes - Head Head exam: Present: atraumatic, normocephalic - Eye Eye exam: Present: normal appearance - ENT ENT exam: Present: mucous membranes moist - Neck Neck exam: Present: normal inspection, full ROM - Respiratory Respiratory exam: Present: normal lung sounds bilaterally. Absent: respiratory distress, wheezes, rales, rhonchi - Cardiovascular Cardiovascular Exam: Present: regular rate, normal rhythm. Absent: systolic murmur, diastolic murmur, rubs, gallop - GI/Abdominal GI/Abdominal exam: Present: soft, normal bowel sounds. Absent: distended, tenderness, guarding, rebound - Rectal Rectal exam: Present: deferred - Extremities Exam Extremities exam: Present: normal inspection - Neurological Exam Neurological exam: Present: altered, other (Oriented to name) - NIHSS Assessment Interval: Baseline 1a. Level of Consciousness: arousable/minor stimuli 1b. LOC Questions: answers 1 question correctly 1c. LOC Commands: performs tasks correctly 2. Best Gaze: normal 3. Visual: no visual loss 4. Facial Palsy: minor paralysis 5b. Motor Arm Right: drift 5a. Motor Arm Left: drift 6a. Motor Leg Left: drift 6b. Motor Leg Right: drift 7. Limb Ataxia: absent 8. Sensory: normal 9. Best Language: no aphasia 10. Dysarthria: severe dysarthria 11. Extinction/Inattention: no abnormality Total Score: 9 Stroke Severity: Moderate Stroke - Psychiatric Psychiatric exam: Present: normal affect, normal mood - Skin Skin exam: Present: warm, dry, intact, normal color. Absent: rash ED Course Vital Signs 05/19/20 05/19/20 05/19/20 15:34 16:01 16:31 Pulse Rate 55 L 51 L 51 L Respiratory 12 17 15 Rate Blood Pressure 151/102 144/96 159/106 O2 Sat by Pulse 100 100 99 Oximetry 05/19/20 05/19/20 05/19/20 17:00 17:31 18:01 Pulse Rate 51 L 52 L 50 L Respiratory 14 14 15 Rate Blood Pressure 168/112 150/98 170/111 O2 Sat by Pulse 99 100 100 Oximetry - Lab Data Result diagrams: 05/19/20 15:28 05/19/20 15:28 Lab Results 05/19/20 05/19/20 05/19/20 Range/Units 15:07 15:28 15:28 WBC 4.6 (4.5-11.0) K/mm3 RBC 4.20 (3.65-5.03) M/mm3 Hgb 12.2 (11.8-15.2) gm/dl Hct 37.8 (35.5-45.6) % MCV 90 (84-94) fl MCH 29 (28-32) pg MCHC 32 (32-34) % RDW 15.5 H (13.2-15.2) % Plt Count 213 (140-440) K/mm3 Lymph % (Auto) 42.6 H (13.4-35.0) % [place] % (Auto) 6.6 (0.0-7.3) % Eos % (Auto) 3.0 (0.0-4.3) % Baso % (Auto) 0.2 (0.0-1.8) % Lymph # (Auto) 2.0 (1.2-5.4) K/mm3 [place] # (Auto) 0.3 (0.0-0.8) K/mm3 Eos # (Auto) 0.1 (0.0-0.4) K/mm3 Baso # (Auto) 0.0 (0.0-0.1) K/mm3 Seg Neutrophils % 47.6 (40.0-70.0) % Seg Neutrophils # 2.2 (1.8-7.7) K/mm3 PT 13.9 (12.2-14.9) Sec. INR 1.08 (0.87-1.13) APTT 29.1 (24.2-36.6) Sec. Sodium (137-145) mmol/L Potassium (3.6-5.0) mmol/L Chloride (98-107) mmol/L Carbon Dioxide (22-30) mmol/L Anion Gap mmol/L BUN (9-20) mg/dL Creatinine (0.8-1.3) mg/dL Estimated GFR ml/min BUN/Creatinine Ratio % Glucose (75-100) mg/dL POC Glucose 111 H (70-105) mg/dL Lactic Acid (0.7-2.0) mmol/L Calcium (8.4-10.2) mg/dL Magnesium (1.7-2.3) mg/dL Total Bilirubin (0.1-1.2) mg/dL AST (5-40) units/L ALT (7-56) units/L Alkaline Phosphatase (35-129) units/L Ammonia (25-60) umol/L Total Creatine Kinase (55-170) units/L Troponin T (0.00-0.029) ng/mL Total Protein (6.3-8.2) g/dL Albumin (3.9-5) g/dL Albumin/Globulin Ratio % TSH (0.270-4.200) mlU/mL Salicylates (2.8-20.0) mg/dL Acetaminophen (10.0-30.0) ug/mL Plasma/Serum Alcohol (0-0.07) % Blood Type Antibody Screen 05/19/20 05/19/20 05/19/20 Range/Units 15:28 15:28 15:28 WBC (4.5-11.0) K/mm3 RBC (3.65-5.03) M/mm3 Hgb (11.8-15.2) gm/dl Hct (35.5-45.6) % MCV (84-94) fl MCH (28-32) pg MCHC (32-34) % RDW (13.2-15.2) % Plt Count (140-440) K/mm3 Lymph % (Auto) (13.4-35.0) % [place] % (Auto) (0.0-7.3) % Eos % (Auto) (0.0-4.3) % Baso % (Auto) (0.0-1.8) % Lymph # (Auto) (1.2-5.4) K/mm3 [place] # (Auto) (0.0-0.8) K/mm3 Eos # (Auto) (0.0-0.4) K/mm3 Baso # (Auto) (0.0-0.1) K/mm3 Seg Neutrophils % (40.0-70.0) % Seg Neutrophils # (1.8-7.7) K/mm3 PT (12.2-14.9) Sec. INR (0.87-1.13) APTT (24.2-36.6) Sec. Sodium 137 (137-145) mmol/L Potassium 4.1 (3.6-5.0) mmol/L Chloride 105.2 (98-107) mmol/L Carbon Dioxide 26 (22-30) mmol/L Anion Gap 10 mmol/L BUN 23 H (9-20) mg/dL Creatinine 1.7 H (0.8-1.3) mg/dL Estimated GFR 51 ml/min BUN/Creatinine Ratio 14 % Glucose 102 H (75-100) mg/dL POC Glucose (70-105) mg/dL Lactic Acid 0.90 (0.7-2.0) mmol/L Calcium 8.4 (8.4-10.2) mg/dL Magnesium 2.00 (1.7-2.3) mg/dL Total Bilirubin 0.30 (0.1-1.2) mg/dL AST 12 (5-40) units/L ALT 9 (7-56) units/L Alkaline Phosphatase 36 (35-129) units/L Ammonia (25-60) umol/L Total Creatine Kinase 111 (55-170) units/L Troponin T < 0.010 (0.00-0.029) ng/mL Total Protein 5.7 L (6.3-8.2) g/dL Albumin 3.6 L (3.9-5) g/dL Albumin/Globulin Ratio 1.7 % TSH (0.270-4.200) mlU/mL Salicylates < 0.3 L (2.8-20.0) mg/dL Acetaminophen (10.0-30.0) ug/mL Plasma/Serum Alcohol (0-0.07) % Blood Type Antibody Screen 05/19/20 05/19/20 05/19/20 Range/Units 15:28 15:28 15:28 WBC (4.5-11.0) K/mm3 RBC (3.65-5.03) M/mm3 Hgb (11.8-15.2) gm/dl Hct (35.5-45.6) % MCV (84-94) fl MCH (28-32) pg MCHC (32-34) % RDW (13.2-15.2) % Plt Count (140-440) K/mm3 Lymph % (Auto) (13.4-35.0) % [place] % (Auto) (0.0-7.3) % Eos % (Auto) (0.0-4.3) % Baso % (Auto) (0.0-1.8) % Lymph # (Auto) (1.2-5.4) K/mm3 [place] # (Auto) (0.0-0.8) K/mm3 Eos # (Auto) (0.0-0.4) K/mm3 Baso # (Auto) (0.0-0.1) K/mm3 Seg Neutrophils % (40.0-70.0) % Seg Neutrophils # (1.8-7.7) K/mm3 PT (12.2-14.9) Sec. INR (0.87-1.13) APTT (24.2-36.6) Sec. Sodium (137-145) mmol/L Potassium (3.6-5.0) mmol/L Chloride (98-107) mmol/L Carbon Dioxide (22-30) mmol/L Anion Gap mmol/L BUN (9-20) mg/dL Creatinine (0.8-1.3) mg/dL Estimated GFR ml/min BUN/Creatinine Ratio % Glucose (75-100) mg/dL POC Glucose (70-105) mg/dL Lactic Acid (0.7-2.0) mmol/L Calcium (8.4-10.2) mg/dL Magnesium (1.7-2.3) mg/dL Total Bilirubin (0.1-1.2) mg/dL AST (5-40) units/L ALT (7-56) units/L Alkaline Phosphatase (35-129) units/L Ammonia 25.0 (25-60) umol/L Total Creatine Kinase (55-170) units/L Troponin T (0.00-0.029) ng/mL Total Protein (6.3-8.2) g/dL Albumin (3.9-5) g/dL Albumin/Globulin Ratio % TSH (0.270-4.200) mlU/mL Salicylates (2.8-20.0) mg/dL Acetaminophen 5.0 L (10.0-30.0) ug/mL Plasma/Serum Alcohol < 0.01 (0-0.07) % Blood Type Antibody Screen 05/19/20 05/19/20 Range/Units 15:28 15:28 WBC (4.5-11.0) K/mm3 RBC (3.65-5.03) M/mm3 Hgb (11.8-15.2) gm/dl Hct (35.5-45.6) % MCV (84-94) fl MCH (28-32) pg MCHC (32-34) % RDW (13.2-15.2) % Plt Count (140-440) K/mm3 Lymph % (Auto) (13.4-35.0) % [place] % (Auto) (0.0-7.3) % Eos % (Auto) (0.0-4.3) % Baso % (Auto) (0.0-1.8) % Lymph # (Auto) (1.2-5.4) K/mm3 [place] # (Auto) (0.0-0.8) K/mm3 Eos # (Auto) (0.0-0.4) K/mm3 Baso # (Auto) (0.0-0.1) K/mm3 Seg Neutrophils % (40.0-70.0) % Seg Neutrophils # (1.8-7.7) K/mm3 PT (12.2-14.9) Sec. INR (0.87-1.13) APTT (24.2-36.6) Sec. Sodium (137-145) mmol/L Potassium (3.6-5.0) mmol/L Chloride (98-107) mmol/L Carbon Dioxide (22-30) mmol/L Anion Gap mmol/L BUN (9-20) mg/dL Creatinine (0.8-1.3) mg/dL Estimated GFR ml/min BUN/Creatinine Ratio % Glucose (75-100) mg/dL POC Glucose (70-105) mg/dL Lactic Acid (0.7-2.0) mmol/L Calcium (8.4-10.2) mg/dL Magnesium (1.7-2.3) mg/dL Total Bilirubin (0.1-1.2) mg/dL AST (5-40) units/L ALT (7-56) units/L Alkaline Phosphatase (35-129) units/L Ammonia (25-60) umol/L Total Creatine Kinase (55-170) units/L Troponin T (0.00-0.029) ng/mL Total Protein (6.3-8.2) g/dL Albumin (3.9-5) g/dL Albumin/Globulin Ratio % TSH 1.320 (0.270-4.200) mlU/mL Salicylates (2.8-20.0) mg/dL Acetaminophen (10.0-30.0) ug/mL Plasma/Serum Alcohol (0-0.07) % Blood Type O POSITIVE Antibody Screen Negative - EKG Data -: EKG Interpreted by Ms EKG shows normal: axis, intervals, QRS complexes, ST-T waves Rate: bradycardia 05/19/20 16:53 EKG obtained 1637 EKG interpreted by de Sinus bradycardia rate 50 bpm normal axis prolonged OH interval prolonged QTC positive LVH - Radiology Data Radiology results: report reviewed CT head: White matter changes evident no intracranial hemorrhage, no large territorial infarct, no focal mass, hydrocephalus. CT angio neck no significant abnormality CT angio head [place] and medial cerebral artery trifurcation is normal, small vessel disease in the posterior anterior middle cerebral artery branches, atherosclerotic disease in the left vertebral artery Chest radiograph: No acute findings CT cervical spine: No indication of fracture or traumatic subluxation - Medical Decision Making Altered mental status with dysarthria right-sided weakness: Differential diagnosis includes acute CVA, polypharmacy substance abuse, alcohol withdrawal. Patient is out of the window for thrombolytic therapy. I have initiated aspirin therapy in the emergency department. Patient is admitted to the hospital service in fair condition. CBC, PT PTT, chemistry unremarkable. Blood alcohol level negative. Salicylate acetaminophen levels are negative. Critical Care Time: Yes Critical care time in (mins) excluding proc time.: 40 Critical care attestation.: If time is entered above; I have spent that time in minutes in the direct care of this critically ill patient, excluding procedure time. 40 minutes of critical care time excluding procedures were used in the care of the patient. I came immediately to the bedside upon patient's arrival. I obtained history from EMS at the bedside. I discussed treatment plan with the nursing team members. I reviewed electronic record. Patient required multiple interventions and reassessments. I spoke with several consultants neurology coordinate care including teleneurologist, radiologist and hospitalist. ED Disposition Clinical Impression: CVA (cerebral vascular accident) Altered mental status Qualifiers: Altered mental status type: unspecified Qualified Code(s): R41.82 - Altered mental status, unspecified Disposition: DC-09 OP ADMIT IP TO THIS HOSP Is pt being admited?: Yes Does the pt Need Aspirin: Yes Condition: Fair
[2020-05-19] MEDS ORDERED: ASPIRIN 325 MG TAB PO ONE (18:24)
[2020-05-19 20:34] LABS: Amphetamine Screen,Urine Negative; Benzodiazepines Screen,Urine Negative; Cocaine Screen,Urine Negative; Methadone Screen,Urine Negative; Opiate Screen,Urine Negative
[2020-05-19 20:35] LABS: Bilirubin,Urine NEG (Negative); Blood,Urine NEG (Negative); Color,Urine Yellow (Yellow); Mucus,Urine FEW /HPF; Protein,Urine <15 mg/dL mg/dL (Negative); Urobilinogen,Urine < 2.0 mg/dL (<2.0)
[2020-05-19 20:47] LABS: Cannabinoid Screen,Urine Negative
--- NOTE | 2020-05-19 23:44 | History and Physical Report ---
History of Present Illness Date of examination: 05/19/20 Date of admission: 05/19/20 18:19 Chief complaint: Altered sensorium History of present illness: 55-year-old with history of hypertension, EtOH dependence, cerebrovascular accident was found altered and lying down by family members. Last well-known time was 8 AM. Patient apparently had slurred speech and right-sided weakness. During my examination able to move all 4 extremities. More alert. But letharg ic. - Past Medical History Previous Medical History?: Yes --Hypertension: Yes --CVA: Yes Additional medical history: Cerebral Aneurysm - Social History Smoking Status: Current Every Day Smoker Substance Use Type: Alcohol Surgical history N/a Family history HTN Review of systems Constitutional no weight loss or weight gain no fever or chills HEENT no sore throat no post nasal drip no diplopia Neck no neck stiffness no lymph gland enlargement Chest and lungs no shortness of breath cough or wheezing CVS altered sensorium and lethargic GI no nausea no vomiting no diarrhea Genitourinary system no dysuria no flank pain Musculoskeletal system no muscle pains no joint pains MANAGER CHILD no syncope no seizures Skin no rash no itching Psychiatric no depression no homicidal or suicidal tendencies Hematologic no lymphedema or bruising Endocrine no polydipsia no polyuria no cold intolerance no heat intolerance Medications and Allergies Allergies Allergy/AdvReac Type Severity Reaction Status Date / Time tomato Allergy Hives Verified 04/21/19 09:44 Home Medications Medication Instructions Recorded Confirmed Last Taken Type Aspirin 325 mg PO QDAY #30 tablet 12/24/19 Unknown Rx Aspirin EC [Ecotrin] 325 mg PO QDAY #30 tablet. 12/24/19 Unknown Rx Aspirin EC [Ecotrin] 325 mg PO QDAY #7 tablet. 12/24/19 Unknown Rx AtorvaSTATin [Lipitor] 40 mg PO QHS #30 tablet 12/24/19 Unknown Rx Chlorthalidone [Thalitone] 25 mg PO QDAY #30 tablet 12/24/19 Unknown Rx Clopidogrel [Plavix] 75 mg PO QDAY #21 tablet 12/24/19 Unknown Rx Clopidogrel [Plavix] 75 mg PO QDAY #30 tablet 12/24/19 Unknown Rx Famotidine [Pepcid] 20 mg PO BID #30 tablet 12/24/19 Unknown Rx QUEtiapine [SEROquel] 200 mg PO QHS #30 12/24/19 Unknown Rx amLODIPine 10 mg PO QDAY #30 tablet 12/24/19 Unknown Rx carvediloL [Coreg] 25 mg PO BID #60 tablet 12/24/19 Unknown Rx cloNIDine [Catapres] 0.1 mg PO Q8H #90 tablet 12/24/19 Unknown Rx Exam - Constitutional Vitals: Temp Pulse Resp BP Pulse Ox 97.6 F 49 L 18 176/118 100 05/19/20 21:31 05/19/20 21:53 05/19/20 22:14 05/19/20 21:31 05/19/20 21:31 General appearance: Present: no acute distress, well-nourished - EENT Eyes: Present: PERRL ENT: hearing intact, clear oral mucosa - Neck Neck: Present: supple, normal ROM - Respiratory Respiratory effort: normal Respiratory: bilateral: CTA - Cardiovascular Heart rate: 78 Rhythm: regular Heart Sounds: Present: S1 & S2. Absent: rub, click - Extremities Extremities: pulses symmetrical, No edema Peripheral Pulses: within normal limits - Abdominal General gastrointestinal: Present: soft, non-tender, non-distended, normal bowel sounds Male genitourinary: Present: normal - Integumentary Integumentary: Present: clear, warm, dry - Musculoskeletal Musculoskeletal: gait normal, strength equal bilaterally - Psychiatric Psychiatric: other (Lethargic and altered sensorium) - Neurologic Neurologic: CNII-XII intact, moves all extremities - Allied Health Allied health notes reviewed: nursing, case management HEART Score - HEART Score Troponin: Troponin T < 0.010 ng/mL (0.00-0.029) 05/19/20 15:28 Results - Labs CBC & Chem 7: 05/20/20 05:04 05/20/20 05:04 Labs: Laboratory Last Values WBC 4.6 K/mm3 (4.5-11.0) 05/19/20 15:28 RBC 4.20 M/mm3 (3.65-5.03) 05/19/20 15:28 Hgb 12.2 gm/dl (11.8-15.2) 05/19/20 15:28 Hct 37.8 % (35.5-45.6) 05/19/20 15:28 MCV 90 fl (84-94) 05/19/20 15:28 MCH 29 pg (28-32) 05/19/20 15:28 MCHC 32 % (32-34) 05/19/20 15:28 RDW 15.5 % (13.2-15.2) H 05/19/20 15: Plt Count 213 K/mm3 (140-440) 05/19/20 15: Lymph % (Auto) 42.6 % (13.4-35.0) H 05/19/20 15: [place] % (Auto) 6.6 % (0.0-7.3) 05/19/20 15: Eos % (Auto) 3.0 % (0.0-4.3) 05/19/20 15: Baso % (Auto) 0.2 % (0.0-1.8) 05/19/20: Lymph # (Auto) 2.0 K/mm3 (1.2-5.4) 05/19/20 15: [place] # (Auto) 0.3 K/mm3 (0.0-0.8) 05/19/20: Eos # (Auto) 0.1 K/mm3 (0.0-0.4) 05/19/20: Baso # (Auto) 0.0 K/mm3 (0.0-0.1) 05/19/20 15: Seg Neutrophils % 47.6 % (40.0-70.0) 05/19/20 15: Seg Neutrophils # 2.2 K/mm3 (1.8-7.7) 05/19/20 15: PT 13.9 Sec. (12.2-14.9) 05/19/20 15: INR 1.08 (0.87-1.13) 05/19/20 15: APTT 29.1 Sec. (24.2-36.6) 05/19/20 15: Sodium 137 mmol/L (137-145) 05/19/20 15: Potassium 4.1 mmol/L (3.6-5.0) 05/19/20 15: Chloride 105.2 mmol/L (98-107) 05/19/20 15: Carbon Dioxide 26 mmol/L (22-30) 05/19/20 15:28 Anion Gap 10 mmol/L 05/19/20 15:28 BUN 23 mg/dL (9-20) H 05/19/20 15:28 Creatinine 1.7 mg/dL (0.8-1.3) H 05/19/20 15:28 Estimated GFR 51 ml/min 05/19/20 15: BUN/Creatinine Ratio 14 % 05/19/20 15:28 Glucose 102 mg/dL (75-100) H 05/19/20 15:28 POC Glucose 111 mg/dL (70-105) H 05/19/20 15:07 Lactic Acid 0.90 mmol/L (0.7-2.0) 05/19/20 15: Calcium 8.4 mg/dL (8.4-10.2) 05/19/20 15: Magnesium 2.00 mg/dL (1.7-2.3) 05/19/20 15: Total Bilirubin 0.30 mg/dL (0.1-1.2) 05/19/20 15:28 AST 12 units/L (5-40) 05/19/20 15: ALT 9 units/L (7-56) 05/19/20 15:28 Alkaline Phosphatase 36 units/L (35-129) 05/19/20 15: Ammonia 25.0 umol/L (25-60) 05/19/20 15:28 Total Creatine Kinase 111 units/L (55-170) 05/19/20 15:28 Troponin T < 0.010 ng/mL (0.00-0.029) 05/19/20 15:28 Total Protein 5.7 g/dL (6.3-8.2) L 05/19/20 15:28 Albumin 3.6 g/dL (3.9-5) L 05/19/20 15:28 Albumin/Globulin Ratio 1.7 % 05/19/20 15: TSH 1.320 mlU/mL (0.270-4.200) 05/19/20 15:28 Urine Color Yellow (Yellow) 05/19/20 20:16 Urine Turbidity Clear (Clear) 05/19/20 20:16 Urine pH 6.0 (5.0-7.0) 05/19/20 20:16 Ur Specific [place] 1.046 (1.003-1.030) H 05/19/20 20:16 Urine Protein <15 mg/dl mg/dL (Negative) 05/19/20 20:16 Urine Glucose (UA) Neg mg/dL (Negative) 05/19/20 20:16 Urine Ketones Neg mg/dL (Negative) 05/19/20 20:16 Urine Blood Neg (Negative) 05/19/20 20:16 Urine Nitrite Neg (Negative) 05/19/20 20:16 Urine Bilirubin Neg (Negative) 05/19/20 20:16 Urine Urobilinogen < 2.0 mg/dL (<2.0) 05/19/20 20:16 Ur Leukocyte Esterase Neg (Negative) 05/19/20 20:16 Urine WBC (Auto) 3.0 /HPF (0.0-6.0) 05/19/20 20:16 Urine RBC (Auto) 2.0 /HPF (0.0-6.0) 05/19/20 20:16 U Epithel Cells (Auto) 1.0 /HPF (0-13.0) 05/19/20 20:16 Urine Mucus Few /HPF 05/19/20 20:16 Salicylates < 0.3 mg/dL (2.8-20.0) L 05/19/20 15:28 Urine Opiates Screen Negative 05/19/20 20:16 Urine Methadone Screen Negative 05/19/20 20:16 Acetaminophen 5.0 ug/mL (10.0-30.0) L 05/19/20 15:28 Ur Barbiturates Screen Negative 05/19/20 20:16 Ur Phencyclidine Scrn Negative 05/19/20 20:16 Ur Amphetamines Screen Negative 05/19/20 20:16 U Benzodiazepines Scrn Negative 05/19/20 20:16 Urine Cocaine Screen Negative 05/19/20 20:16 U Marijuana (THC) Screen Negative 05/19/20 20:16 Drugs of Abuse Note Disclamer 05/19/20 20:16 Plasma/Serum Alcohol < 0.01 % (0-0.07) 05/19/20 15:28 Blood Type O POSITIVE 05/19/20 15:28 Antibody Screen Negative 05/19/20 15:28 Short CBC 05/19/20 05/20/20 Range/Units 15:28 05:04 WBC 4.6 3.7 L (4.5-11.0) K/mm3 Hgb 12.2 12.9 (11.8-15.2) gm/dl Hct 37.8 39.8 (35.5-45.6) % Plt Count 213 219 (140-440) K/mm3 BMP 05/19/20 05/20/20 15:28 05:04 Sodium 137 141 Potassium 4.1 4.0 Chloride 105.2 107.7 H Carbon Dioxide 26 25 BUN 23 H 20 Creatinine 1.7 H 1.5 H Glucose 102 H 112 H Calcium 8.4 8.6 Cardiac Enzymes 05/19/20 Range/Units 15:28 Total Creatine Kinase 111 (55-170) units/L Troponin T < 0.010 (0.00-0.029) ng/mL Liver Function 05/19/20 05/20/20 Range/Units 15:28 05:04 Total Bilirubin 0.30 0.40 (0.1-1.2) mg/dL AST 12 11 (5-40) units/L ALT 9 9 (7-56) units/L Alkaline Phosphatase 36 39 (35-129) units/L Albumin 3.6 L 3.7 L (3.9-5) g/dL Urine 05/19/20 Range/Units 20:16 Urine Color Yellow (Yellow) Urine pH 6.0 (5.0-7.0) Ur Specific [place] 1.046 H (1.003-1.030) Urine Protein <15 mg/dl (Negative) mg/dL Urine Glucose (UA) Neg (Negative) mg/dL - Imaging and Cardiology Imaging and Cardiology: Head CT No focal mass hemorrhage hydrocephalus or acute large territorial infarct Cervical spine CT No indication of fracture or traumatic subluxation Widespread mild cervical spondylosis Head CTA Atherosclerotic disease in the left vertebral artery Neck CTA No acute abnormalities [place]/IV: Voiding Method Bedpan Assessment and Plan Advance Directives: Yes (Full code) VTE prophylaxis?: Chemical Plan of care discussed with patient/family: Yes - Patient Problems (1) Acute encephalopathy Current Visit: Yes Status: Acute Plan to address problem: Secondary to his dependence and withdrawal Possible delirium tremens Patient initiated on CIWA protocol IV fluids for now (2) YSABEL (acute kidney injury) Current Visit: Yes Status: Acute Plan to address problem: Secondary to volume depletion and vasomotor nephropathy IV fluids for now and recheck creatinine (3) Old cerebrovascular accident without late effect Current Visit: Yes Status: Chronic Plan to address problem: No new CVA On Plavix and aspirin We will get MRI brain No stroke protocol (4) Hypertension Current Visit: Yes Status: Chronic Qualifiers: Hypertension type: essential hypertension Qualified Code(s): I10 - Essential (primary) hypertension Plan to address problem: Continue antihypertensives and adjust medications (5) Hyperlipidemia Current Visit: Yes Status: Chronic Qualifiers: Hyperlipidemia type: unspecified Qualified Code(s): E78.5 - Hyperlipidemia, unspecified Plan to address problem: Continue statins (6) DVT prophylaxis Current Visit: Yes Status: Acute Plan to address problem: On heparin and GI prophylaxis (7) Malnutrition Current Visit: Yes Status: Chronic Qualifiers: Malnutrition type: protein-calorie malnutrition Protein-calorie malnutrition severity: mild Qualified Code(s): E44.1 - Mild protein-calorie malnutrition Plan to address problem: Patient initiated on dietary supplements
[2020-05-19] MEDS ORDERED: ACETAMINOPHEN 325 MG TAB PO PRN (23:47)
[2020-05-19] MEDS ORDERED: ONDANSETRON 4 MG/2 ML INJ IV PRN (23:47)
[2020-05-19] MEDS ORDERED: LORazepam 2 MG/ML VIAL IV PRN ×3 (23:51)
[2020-05-19] MEDS ORDERED: PHENobarbitaL 130 MG/ML VIAL IV PRN (23:51)
[2020-05-19] MEDS ORDERED: HALOPERIDOL LACTATE 5 MG/1 ML INJ IV PRN (23:51)
[2020-05-20] MEDS ORDERED: hydrALAZINE 20 MG/1 ML INJ IV ONE (00:32)
[2020-05-20] MEDS ORDERED: hydrALAZINE 20 MG/1 ML INJ ONE (00:34)
[2020-05-20] MEDS ORDERED: FAMOTIDINE 20 MG TAB ONE (00:34)
[2020-05-20] MEDS ORDERED: cloNIDine 0.1 MG TAB ONE (00:34)
[2020-05-20] MEDS ORDERED: D5NS 1000 ML IV SOLN IV ONE (03:50)
[2020-05-20 06:12] LABS: Basophils % (Auto) 0.5 % (0.0-1.8); Eosinophils # (Auto) 0.2 K/mm3 (0.0-0.4); Eosinophils % (Auto) 4.8 % (0.0-4.3); Hematocrit 39.8 % (35.5-45.6); Hemoglobin 12.9 gm/dl (11.8-15.2); Lymphocytes # (Auto) 1.7 K/mm3 (1.2-5.4); Lymphocytes % (Auto) 46.9 % (13.4-35.0); Mean Corpuscular HGB Conc 32 % (32-34); Mean Corpuscular Volume 89 fl (84-94); Monocytes # (Auto) 0.3 K/mm3 (0.0-0.8); Monocytes % (Auto) 6.7 % (0.0-7.3); Platelet Count 219 K/mm3 (140-440); Red Blood Count 4.45 M/mm3 (3.65-5.03); Red Cell Distribution Width 15.9 % (13.2-15.2)
[2020-05-20 06:38] LABS: Albumin 3.7 g/dL (3.9-5); Calcium 8.6 mg/dL (8.4-10.2)
[2020-05-20] MEDS ORDERED: FAMOTIDINE 20 MG/2 ML INJ IV SCH (10:00)
--- NOTE | 2020-05-20 12:20 | Progress Note ---
Subjective Date of service: 05/20/20 Interval history: History of present illness: 55-year-old with history of hypertension, EtOH dependence, cerebrovascular accident was found altered and lying down by family members. Last well-known time was 8 AM. Patient apparently had slurred speech and right-sided weakness. During my examination able to move all 4 extremities. More alert. But ced rgic. 05/20 patient is awake alert and oriented to self age and year. He offers no specific complaints, he states he drinks 3-4 beers daily Lab results reviewed, neurology note reviewed 12 point review of systems is essentially unremarkable Assessment and plan Acute encephalopathy Rule out toxic versus metabolic Resolved He is at this time alert and oriented History of stroke/cerebral aneurysm/PFO/ASD/ No significant residual weakness He moves all his extremities and states that he walks with a cane and or sometimes with walker Continue aspirin and statin Acute kidney injury No old lab results to compare with Serum creatinine trending down, 1.7-1.5 this morning Avoid nephrotoxins Monitor renal function Hypertension Well-controlled Continue present medications Hyperlipidemia Continue statin Tobacco abuse Smoking cessation counseling was done Alcohol abuse Alcohol cessation counseling was done If stable will most likely discharge patient in a.m. Objective - Constitutional Vitals: Vital Signs - 12hr 05/20/20 05/20/20 03:28 08:59 Temperature 98.1 F 97.6 F Pulse Rate 64 65 Respiratory 18 18 Rate Blood Pressure 135/93 Blood Pressure 140/95 [Right] O2 Sat by Pulse 97 99 Oximetry General appearance: Present: no acute distress, well-nourished - EENT Eyes: PERRL, EOM intact ENT: hearing intact, clear oral mucosa - Neck Neck: supple, normal ROM - Respiratory Respiratory effort: normal Respiratory: bilateral: CTA, diminished - Cardiovascular Rhythm: regular Heart Sounds: Present: S1 & S2 Extremities: No edema - Gastrointestinal General gastrointestinal: Present: soft, non-tender Rectal Exam: deferred - Genitourinary Male genitourinary: deferred - Integumentary Integumentary: clear - Musculoskeletal Musculoskeletal: strength equal bilaterally - Neurologic Neurologic: no focal deficits - Psychiatric Psychiatric: appropriate mood/affect - Labs CBC & Chem 7: 05/20/20 05:04 05/20/20 05:04 Labs: Abnormal lab results 05/19/20 05/19/20 05/19/20 Range/Units 15:07 15:28 15:28 WBC (4.5-11.0) K/mm3 RDW 15.5 H (13.2-15.2) % Lymph % (Auto) 42.6 H (13.4-35.0) % Eos % (Auto) (0.0-4.3) % Seg Neutrophils # (1.8-7.7) K/mm3 Chloride (98-107) mmol/L BUN 23 H (9-20) mg/dL Creatinine 1.7 H (0.8-1.3) mg/dL Glucose 102 H (75-100) mg/dL POC Glucose 111 H (70-105) mg/dL Total Protein 5.7 L (6.3-8.2) g/dL Albumin 3.6 L (3.9-5) g/dL Ur Specific [place] (1.003-1.030) Salicylates (2.8-20.0) mg/dL Acetaminophen (10.0-30.0) ug/mL 05/19/20 05/19/20 05/19/20 Range/Units 15:28 15:28 20:16 WBC (4.5-11.0) K/mm3 RDW (13.2-15.2) % Lymph % (Auto) (13.4-35.0) % Eos % (Auto) (0.0-4.3) % Seg Neutrophils # (1.8-7.7) K/mm3 Chloride (98-107) mmol/L BUN (9-20) mg/dL Creatinine (0.8-1.3) mg/dL Glucose (75-100) mg/dL POC Glucose (70-105) mg/dL Total Protein (6.3-8.2) g/dL Albumin (3.9-5) g/dL Ur Specific [place] 1.046 H (1.003-1.030) Salicylates < 0.3 L (2.8-20.0) mg/dL Acetaminophen 5.0 L (10.0-30.0) ug/mL 05/20/20 05/20/20 Range/Units 05:04 05:04 WBC 3.7 L (4.5-11.0) K/mm3 RDW 15.9 H (13.2-15.2) % Lymph % (Auto) 46.9 H (13.4-35.0) % Eos % (Auto) 4.8 H (0.0-4.3) % Seg Neutrophils # 1.5 L (1.8-7.7) K/mm3 Chloride 107.7 H (98-107) mmol/L BUN (9-20) mg/dL Creatinine 1.5 H (0.8-1.3) mg/dL Glucose 112 H (75-100) mg/dL POC Glucose (70-105) mg/dL Total Protein 5.8 L (6.3-8.2) g/dL Albumin 3.7 L (3.9-5) g/dL Ur Specific [place] (1.003-1.030) Salicylates (2.8-20.0) mg/dL Acetaminophen (10.0-30.0) ug/mL HEART Score - HEART Score Troponin: Troponin T < 0.010 ng/mL (0.00-0.029) 05/19/20 15:28
[2020-05-20] MEDS: oxyCODONE /ACETAMINOPHEN 5-325MG TAB PO PRN (14:06)
[2020-05-20] MEDS: D5W/0.9% NACL 1,000 ML IV SCH (14:07)
[2020-05-20] MEDS: ASPIRIN 325 MG TAB PO SCH (14:09)
[2020-05-20] MEDS: carvediloL 25 MG TAB PO SCH ×2 (14:09→21:13)
[2020-05-20] MEDS: FAMOTIDINE 20 MG TAB PO SCH ×2 (14:09→21:14)
[2020-05-20] MEDS: CLOPIDOGREL 75 MG TAB PO SCH (14:09)
[2020-05-20] MEDS: amLODIPine 10 MG TAB PO SCH (14:10)
[2020-05-20] MEDS: cloNIDine 0.1 MG TAB PO SCH ×3 (14:10→21:14)
[2020-05-20] MEDS ORDERED: CHLORTHALIDONE 25 MG TAB PO SCH (15:00)
[2020-05-20] MEDS: QUEtiapine 100 MG TAB PO SCH (21:14)
[2020-05-20] MEDS ORDERED: QUEtiapine 200 MG TAB PO SCH ×2 (22:00)
[2020-05-21] MEDS: D5W/0.9% NACL 1,000 ML IV SCH (05:07)
[2020-05-21] MEDS: cloNIDine 0.1 MG TAB PO SCH ×3 (05:07→20:59)
[2020-05-21 06:06] LABS: BUN/Creatinine Ratio 13; Blood Urea Nitrogen 18 mg/dL (9-20); Calcium 8.2 mg/dL (8.4-10.2); Hemolysis Index 7
[2020-05-21] MEDS: CHLORTHALIDONE 25 MG TAB PO SCH (09:08)
[2020-05-21] MEDS: ASPIRIN 325 MG TAB PO SCH (09:09)
[2020-05-21] MEDS: FAMOTIDINE 20 MG TAB PO SCH ×2 (09:09→21:00)
[2020-05-21] MEDS: carvediloL 25 MG TAB PO SCH ×2 (09:09→21:00)
[2020-05-21] MEDS: oxyCODONE /ACETAMINOPHEN 5-325MG TAB PO PRN ×2 (09:09→23:36)
[2020-05-21] MEDS: CLOPIDOGREL 75 MG TAB PO SCH (09:09)
[2020-05-21] MEDS: amLODIPine 10 MG TAB PO SCH (09:10)
[2020-05-21] MEDS: hydrALAZINE 25 MG TAB PO SCH ×3 (09:10→21:00)
--- NOTE | 2020-05-21 10:08 | Discharge Summary ---
Providers - Providers Date of Admission: 05/19/20 18:19 Date of discharge: 05/21/20 Attending physician: HIRAM NAILS Primary care physician: BLACK JONES MD Hospitalization Reason for admission: Acute encephalopathy Condition: Fair Hospital course: History of present illness: 55-year-old with history of hypertension, EtOH dependence, cerebrovascular accident was found altered and lying down by family members. Last well-known time was 8 AM. Patient apparently had slurred speech and right-sided weakness. During my examination able to move all 4 extremities. More alert. But lethargic. 05/20 patient is awake alert and oriented to self age and year. He offers no specific complaints, he states he drinks 3-4 beers daily Lab results reviewed, neurology note reviewed 12 point review of systems is essentially unremarkable Assessment and plan Acute encephalopathy Rule out toxic versus metabolic Resolved He is at this time alert and oriented History of stroke/cerebral aneurysm/PFO/ASD/ No significant residual weakness He moves all his extremities and states that he walks with a cane and or sometimes with walker Continue aspirin and statin Acute kidney injury No old lab results to compare with Serum creatinine trending down, 1.7-1.5 this morning Avoid nephrotoxins Monitor renal function Hypertension Well-controlled Continue present medications Hyperlipidemia Continue statin Tobacco abuse Smoking cessation counseling was done Alcohol abuse Alcohol cessation counseling was done Disposition: DC-01 TO HOME OR SELFCARE Exam - Constitutional Vitals: Temp Pulse Resp BP Pulse Ox 97.7 F 61 20 151/108 100 05/21/20 07:49 05/21/20 09:10 05/21/20 07:49 05/21/20 09:10 05/21/20 07:49 Plan Follow up with: BLACK JONES MD [Primary Care Provider] - 7 Days
--- NOTE | 2020-05-21 10:12 | Progress Note ---
Subjective Date of service: 05/21/20 Interval history: History of present illness: 55-year-old with history of hypertension, EtOH dependence, cerebrovascular accident was found altered and lying down by family members. Last well-known time was 8 AM. Patient apparently had slurred speech and right-sided weakness. During my examination able to move all 4 extremities. More alert. But ced rgic. 05/20 patient is awake alert and oriented to self age and year. He offers no specific complaints, he states he drinks 3-4 beers daily Lab results reviewed, neurology note reviewed 05/21 patient is awake alert and oriented although he has dysarthria. Doubt patient had an acute stroke. However this cannot be ruled out at this time and he is waiting for MRI of the brain. Patient is ambulating on his own. He offers no specific complaints. He denies any headache or dizziness. Denies rosal[address] pain or shortness of breath nausea or abdominal pain 12 point review of systems is essentially unremarkable Assessment and plan Acute encephalopathy Likely multifactorial including polypharmacy and baseline mentation and alcoholism Resolved He is at this time alert and oriented History of stroke/cerebral aneurysm/PFO/ASD/ Mild residual weakness involving both sides He moves all his extremities and states that he walks with a cane and or sometimes with walker Continue aspirin and statin Awaiting for MRI brain Radiology results: report reviewed CT head: White matter changes evident no intracranial hemorrhage, no large territorial infarct, no focal mass, hydrocephalus. CT angio neck no significant abnormality CT angio head [place] of [place] and medial cerebral artery trifurcation is normal, small vessel disease in the posterior anterior middle cerebral artery branches, atherosclerotic disease in the left vertebral artery Chest radiograph: No acute findings CT cervical spine: No indication of fracture or traumatic subluxation Acute kidney injury No old lab results to compare with Serum creatinine trending down, 1.7-1.5 > 1.4 this morning Avoid nephrotoxins Monitor renal function Hypertension Well-controlled Continue present medications Hyperlipidemia Continue statin Tobacco abuse Smoking cessation counseling was done Alcohol abuse Alcohol cessation counseling was done Unknown psych problems Patient states that he last saw psychiatrist Dr. Poe 8 months ago He is on high-dose Seroquel He does not know why he takes the medication I have decreased Seroquel 200 mg as the patient was groggy at the time of admission Patient is stable. DC plans after MRI brain results are obtained. Objective - Constitutional Vitals: Vital Signs - 12hr 05/20/20 05/21/20 05/21/20 23:35 00:00 04:51 Temperature 97.8 F 97.6 F Pulse Rate 54 L 55 L 55 L Respiratory 18 18 Rate Blood Pressure 124/90 168/106 O2 Sat by Pulse 99 99 Oximetry 05/21/20 05/21/20 05/21/20 07:49 09:07 09:09 Temperature 97.7 F Pulse Rate 54 L 61 61 Respiratory 20 Rate Blood Pressure 151/108 151/108 O2 Sat by Pulse 100 Oximetry 05/21/20 09:10 Temperature Pulse Rate 61 Respiratory Rate Blood Pressure 151/108 O2 Sat by Pulse Oximetry General appearance: Present: no acute distress - EENT Eyes: PERRL, EOM intact ENT: hearing intact, no thrush - Neck Neck: supple, normal ROM, no masses or JVD - Respiratory Respiratory effort: normal Respiratory: bilateral: CTA, diminished, negative: rhonchi, wheezing - Cardiovascular Rhythm: regular Heart Sounds: Present: S1 & S2 Extremities: No edema - Gastrointestinal General gastrointestinal: Present: soft, non-tender Rectal Exam: deferred - Genitourinary Male genitourinary: deferred - Integumentary Integumentary: clear - Musculoskeletal Musculoskeletal: strength equal bilaterally (Bilateral upper and lower extremity drift) - Psychiatric Psychiatric: appropriate mood/affect - Labs CBC & Chem 7: 05/20/20 05:04 05/21/20 04:33 Labs: Abnormal lab results 05/21/20 Range/Units 04:33 Creatinine 1.4 H (0.8-1.3) mg/dL Calcium 8.2 L (8.4-10.2) mg/dL HEART Score - HEART Score Troponin: Troponin T < 0.010 ng/mL (0.00-0.029) 05/19/20 15:28
--- NOTE | 2020-05-21 17:42 | Magnetic Resonance Report ---
NONENHANCED MR SCAN OF THE BRAIN: INDICATION / CLINICAL INFORMATION: Acute encephalopathy. TECHNIQUE: Multiplanar, multisequence MR images of the brain obtained. COMPARISON: CT scan of the head from 05/20/2019 FINDINGS: BRAIN / INTRACRANIAL CONTENTS: No acute ischemia, acute hemorrhage, mass effect, midline shift, or hy drocephalus. No chronic infarct or encephalomalacia. Confluent periventricular and deep hemispheric white matter hyperintensity and chronic changes in the julisa due to small vessel disease; multiple pun ctate areas of susceptibility changes in the julisa cerebellar hemispheres basal ganglia probably due t o chronic microbleeds; Moderate cortical involution; normal temporal horn tips suggest normal hippocampi No change since the previous MRI scan from 12/21/2019 CRANIOCERVICAL JUNCTION: No significant abnormality. VASCULAR FLOW-VOIDS: No significant abnormality. ORBITS: No significant abnormality of visualized orbits. SINUSES / MASTOIDS: No significant abnormality of visualized sinuses and mastoid air cells. ADDITIONAL FINDINGS: None. IMPRESSION: No acute/subacute infarction or acute parenchymal lesion MR findings remain unchanged since 12/21/2019 Signer Name: Yves Fernandez MD Signed: 05/21/2020 5:38 PM Workstation Name: [id number]
[2020-05-21] MEDS: QUEtiapine 100 MG TAB PO SCH (21:00)
[2020-05-22] MEDS: hydrALAZINE 25 MG TAB PO SCH ×2 (05:17→13:50)
[2020-05-22] MEDS: cloNIDine 0.1 MG TAB PO SCH ×3 (05:17→14:50)
[2020-05-22 05:32] LABS: Calcium 8.5 mg/dL (8.4-10.2)
[2020-05-22] MEDS: HYDROmorphone 1 MG/1 ML INJ IV PRN ×2 (08:15→13:20)
[2020-05-22] MEDS: FAMOTIDINE 20 MG TAB PO SCH ×2 (10:13→10:14)
[2020-05-22] MEDS: CHLORTHALIDONE 25 MG TAB PO SCH (10:14)
[2020-05-22] MEDS: amLODIPine 10 MG TAB PO SCH (10:14)
[2020-05-22] MEDS: carvediloL 25 MG TAB PO SCH (10:14)
[2020-05-22] MEDS: CLOPIDOGREL 75 MG TAB PO SCH (10:14)
[2020-05-22] MEDS: ASPIRIN 325 MG TAB PO SCH (10:14)
--- NOTE | 2020-05-22 10:45 | Discharge Summary ---
Providers - Providers Date of Admission: 05/21/20 11:42 Date of discharge: 05/22/20 Attending physician: HIRAM NAILS 05/22/20 10:03 Physical Therapy Evaluation and Treat [CONS] Routine Comment: Reason For Exam: debility Mode of Transport?: Wheelchair Primary care physician: SECURITY SERVICES MANAGER Hospitalization Condition: Fair Hospital course: History of present illness: 55-year-old with history of hypertension, EtOH dependence, cerebrovascular accident was found altered and lying down by family members. Last well-known time was 8 AM. Patient apparently had slurred speech and right-sided weakness. During my examination able to move all 4 extremities. More alert. But lethargic. 05/20 patient is awake alert and oriented to self age and year. He offers no specific complaints, he states he drinks 3-4 beers daily Lab results reviewed, neurology note reviewed 05/21 patient is awake alert and oriented although he has dysarthria. Doubt patient had an acute stroke. However this cannot be ruled out at this time and he is waiting for MRI of the brain. Patient is ambulating on his own. He offers no specific complaints. He denies any headache or dizziness. Denies chest pain or shortness of breath nausea or abdominal pain 05/22 patient is alert and oriented and he offers no specific complaints. MRI brain results reviewed. He is medically stable for discharge Assessment and plan Acute encephalopathy Likely multifactorial including polypharmacy and alcoholism Resolved He is at this time alert and oriented History of stroke/cerebral aneurysm/PFO/ASD/ Mild residual weakness involving both sides He moves all his extremities and states that he walks with a cane and or sometimes with walker Continue aspirin and statin Radiology results: report reviewed CT head: White matter changes evident no intracranial hemorrhage, no large territorial infarct, no focal mass, hydrocephalus. CT angio neck no significant abnormality CT angio head [place] and medial cerebral artery trifurcation is normal, small vessel disease in the posterior anterior middle cerebral artery branches, atherosclerotic disease in the left vertebral artery Chest radiograph: No acute findings CT cervical spine: No indication of fracture or traumatic subluxation MRI: brain without: no acute lesions Acute kidney injury No old lab results to compare with Serum creatinine trending down, 1.7-1.5 > 1.4 this morning Avoid nephrotoxins Monitor renal function Hypertension Well-controlled Continue present medications Hyperlipidemia Continue statin Tobacco abuse Smoking cessation counseling was done Alcohol abuse Alcohol cessation counseling was done Unknown psych problems Patient states that he last saw psychiatrist Dr. Poe 8 months ago He is on high-dose Seroquel 9200 mg) He does not know why he takes the medication but wants a refill on seroquel I have decreased Seroquel to 100 mg as the patient was groggy at the time of admission Patient is stable. Disposition: DC-01 TO HOME OR SELFCARE Final Discharge Diagnosis (Prints w/discharge instructions): Acute encephalopathy Time spent for discharge: 38 min Core Measure Documentation - Palliative Care Palliative Care/ Comfort Measures: Not Applicable - Core Measures Any of the following diagnoses?: none Exam - Constitutional Vitals: Temp Pulse Resp BP Pulse Ox 98.0 F 53 L 18 151/104 99 05/22/20 03:53 05/22/20 03:53 05/22/20 03:53 05/22/20 03:53 05/22/20 03:53 General appearance: Present: no acute distress - EENT Eyes: Present: PERRL, EOM intact ENT: hearing intact, clear oral mucosa - Neck Neck: Present: supple, normal ROM - Respiratory Respiratory effort: normal Respiratory: bilateral: CTA, diminished - Cardiovascular Rhythm: regular Heart Sounds: Present: S1 & S2 - Extremities Extremities: No edema - Abdominal General gastrointestinal: Present: soft, non-tender Male genitourinary: Present: deferred - Rectal Rectal Exam: deferred - Integumentary Integumentary: Present: clear - Musculoskeletal Musculoskeletal: generalized weakness - Neurologic Neurologic: moves all extremities Plan Activity: advance as tolerated Weight Bearing Status: Weight Bear as Tolerated Diet: regular, low fat, low cholesterol, low salt Additional Instructions: Patient states that he has a cane and a walker at home. Per discussion with patient's sister, she wants patient to follow up with PCP in [place]. I have referred him to Dr. Roth Follow up with: PRIMARY MD KAREN [Primary Care Provider] - 7 Days JOSE ROTH MD [Staff Physician] - 7 Days Prescriptions: amLODIPine 10 mg PO QDAY #30 tablet hydrALAZINE [Apresoline TAB] 25 mg PO Q8HR #90 tablet cloNIDine [Catapres] 0.1 mg PO Q8H #90 tablet carvediloL [Coreg] 25 mg PO BID #60 tablet AtorvaSTATin [Lipitor] 40 mg PO QHS #30 tablet Famotidine [Pepcid] 20 mg PO BID #60 tablet Clopidogrel [Plavix] 75 mg PO QDAY #30 tablet QUEtiapine [SEROquel] 100 mg PO HS #14 tablet Chlorthalidone [Thalitone] 25 mg PO QDAY #30 tablet
[2020-05-22 10:57] LABS: Chol/HDL Ratio 2.86 %
[2020-05-22 13:00] VITALS: BP 154/95
[2020-05-22] MEDS: oxyCODONE /ACETAMINOPHEN 5-325MG TAB PO PRN (17:03)
== END 2020-05-22 17:50 | disposition home or self-care (01) | DRG 70 ==
LOC: ED 15:05 → 4A 18:19 → OBSVTOIN 05-21 11:42
PROVIDERS: ADMIT Internal Medicine; ATTEND Internal Medicine
DX: G93.40 Encephalopathy, unspecified (principal); N17.0 Acute kidney failure with tubular necrosis; E44.1 Mild protein-calorie malnutrition; E78.5 Hyperlipidemia, unspecified; K21.9 Gastro-esophageal reflux disease without esophagitis; I12.0 Hypertensive chronic kidney disease with stage 5 chronic kidney disease or end stage renal disease; F10.239 Alcohol dependence with withdrawal, unspecified; F17.200 Nicotine dependence, unspecified, uncomplicated; Z82.49 Family history of ischemic heart disease and other diseases of the circulatory system; Z86.73 Personal history of transient ischemic attack (TIA), and cerebral infarction without residual deficits; Z91.018 Allergy to other foods; Z68.29 Body mass index [BMI] 29.0-29.9, adult; Z71.6 Tobacco abuse counseling
CPT/HCPCS: 36415; 70450; 70496; 70498; 70551; 71045; 72125; 80048; 80053; 80061; 80307; 80320; 81001; 82140; 82150; 82550; 82962; 83036; 83735; 84100; 84443; 84484; 85025; 85610; 85730; 86850; 86900; 86901; 87086; 93005; 99406; G0378; A9270-GY; G0480; J0360; J1170; J2310; J7042; Q9967

== ENCOUNTER 2021-03-28 22:42 | Inpatient (IN) | payer MEDICAID ==
[2021-03-28] MEDS ORDERED: SODIUM CHLORIDE 0.9% 1000 ML 2,000 ML ONE (23:08)
[2021-03-28] MEDS ORDERED: THIAMINE 100 MG, FOLIC ACID 1 MG, MULTIPLE VITAMIN INJ, ADULT 10 ML in SODIUM CHLORIDE ... IV ONE (23:09)
[2021-03-28 23:58] LABS: Basophils % (Auto) 0.3 % (0.0-1.8); Eosinophils # (Auto) 0.1 K/mm3 (0.0-0.4); Eosinophils % (Auto) 2.6 % (0.0-4.3); Hematocrit 42.9 % (35.5-45.6); Hemoglobin 13.5 gm/dl (11.8-15.2); Lymphocytes # (Auto) 1.9 K/mm3 (1.2-5.4); Lymphocytes % (Auto) 34.7 % (13.4-35.0); Mean Corpuscular HGB Conc 32 % (32-34); Mean Corpuscular Volume 87 fl (84-94); Monocytes # (Auto) 0.3 K/mm3 (0.0-0.8); Monocytes % (Auto) 5.1 % (0.0-7.3); Platelet Count 193 K/mm3 (140-440); Red Blood Count 4.95 M/mm3 (3.65-5.03); Red Cell Distribution Width 15.1 % (13.2-15.2)
[2021-03-29 00:10] LABS: Calcium 9.2 mg/dL (8.4-10.2)
[2021-03-29 01:21] LABS: INR 0.9 (0.87-1.13)
[2021-03-29 01:22] LABS: Partial Thromboplastin Time 26.8 Sec. (24.2-36.6)
[2021-03-29 01:23] LABS: Thrombin Time 16.7 Sec. (15.1-19.6)
--- NOTE | 2021-03-29 01:42 | Cat Scan Report ---
CT head/brain wo con INDICATION / CLINICAL INFORMATION: CODE STROKE PROTOCOL!!! AMS, Stroke-Like symptoms. TECHNIQUE: Axial CT imaging of the brain was obtained without contrast. Coronal and sagittal reformatted imaging obtained and reviewed. All CT scans at this location are performed using CT dose reduction for ALAR A by means of automated exposure control. COMPARISON: Prior head CT 05/19/2020 FINDINGS: No intracranial hemorrhage, mass, or midline shift noted. No extra-axial fluid collection or suggesti on for acute territorial infarction. There is advanced cerebral and cerebellar atrophy. Extensive dec reased attenuation throughout the cerebral white matter bilaterally is noted unchanged from prior exa m and consistent with prominent microvascular angiopathy. Atherosclerotic disease is seen in the anterior and posterior circulation. Visualized paranasal sinuses and mastoid air cells are well aerated and clear. No calvarial abnormali ty of significance. IMPRESSION: 1. No acute intracranial abnormality. Head CT is unchanged compared with prior exam of 05/19/2020. 2. Advanced cerebral/cerebellar atrophy with marked microvascular angiopathy. A negative report for acute stroke was given to Dr. Whatley at 0037 hours PERSONAL CARE WORKER Signer Name: Claire Menjivar MD Signed: 03/29/2021 1:37 AM Workstation Name: [id number]
[2021-03-29 02:00] LABS: Amphetamine Screen,Urine PRESUMPTIVE NEGATIVE; Benzodiazepines Screen,Urine PRESUMPTIVE NEGATIVE; Cannabinoid Screen,Urine PRESUMPTIVE POSITIVE; Cocaine Screen,Urine PRESUMPTIVE NEGATIVE; Methadone Screen,Urine PRESUMPTIVE NEGATIVE; Opiate Screen,Urine PRESUMPTIVE NEGATIVE
--- NOTE | 2021-03-29 02:10 | Cat Scan Report ---
CT angio neck INDICATION / CLINICAL INFORMATION: 56 years Male; CODE STROKE PROTOCOL!!! AMS, Stroke-Like symptoms. TECHNIQUE: Thin cut axial images obtained through the head during IV bolus contrast administration. S agittal, coronal, and 3 plane MIP reconstructions performed by the technologist. NASCET type criteria used evaluate stenoses. All CT scans at this location are performed using CT dose reduction for ALAR A by means of automated exposure control. COMPARISON: The study is compared to previous CTA neck of 05/19/2020. FINDINGS: CAROTID ARTERIES: The motion and beam hardening degrade the image quality. However, there are small f oci of calcification without CTA evidence of significant developing stenosis by NASCET criteria. VERTEBRAL ARTERIES: There is also no clear CT evidence of significant developing stenosis involving t he cervical vertebral arteries by NASCET criteria. ARCH: There is no significant focal stenosis involving origins of the arch vessels. ADDITIONAL FINDINGS: Remainder of the surrounding soft tissues are grossly normal. IMPRESSION: There is no CTA evidence of significant developing stenosis involving the cervical carotid or vertebr al arteries by NASCET criteria from 05/19/2020. Signer Name: Rivas Beck MD Signed: 03/29/2021 2:05 AM Workstation Name: [id number]
--- NOTE | 2021-03-29 02:20 | Emergency Department Report ---
ED Altered Mental Status HPI - General Chief Complaint: Altered Mental Status Stated Complaint: AMS Time Seen by Provider: 03/28/21 23:08 Source: EMS Mode of arrival: Stretcher Limitations: Altered Mental Status - History of Present Illness Initial Comments: Patient is a 56-year-old F [place] male with a past medical history of hypertension alcohol abuse and possible previous CVA who was found lying on the ground prior to his arrival. Unknown how long exactly the patient had been lying on the ground. Patient is states that he has been dizzy all day since this morning. Paramedics state that there is several beer bottles surrounding the patient. There is also a prescription bottle of Klonopin present. The assumption was that the patient was intoxicated. Patient seems somewhat combative according to paramedics in route however he is calm. Patient is states his only complaint is dizziness. He claims he has not had anything to drink. Please see the patient's last discharge summary from her previous visit - Providers Date of Admission: 05/21/20 11:42 Date of discharge: 05/22/20 Attending physician: HIRAM NAILS 05/22/20 10:03 Physical Therapy Evaluation and Treat [CONS] Routine Comment: Reason For Exam: debility Mode of Transport?: Wheelchair Primary care physician: SCREEN AND CYCLONE REPAIRER Hospitalization Condition: Fair Hospital course: History of present illness: 55-year-old with history of hypertension, EtOH dependence, cerebrovascular accident was found altered and lying down by family members. Last well-known time was 8 AM. Patient apparently had slurred speech and right-sided weakness. During my examination able to move all 4 extremities. More alert. But lethargic. 05/20 patient is awake alert and oriented to self age and year. He offers no specific complaints, he states he drinks 3-4 beers daily Lab results reviewed, neurology note reviewed 05/21 patient is awake alert and oriented although he has dysarthria. Doubt patient had an acute stroke. However this cannot be ruled out at this time and he is waiting for MRI of the brain. Patient is ambulating on his own. He offers no specific complaints. He denies any headache or dizziness. Denies chest pain or shortness of breath nausea or abdominal pain 05/22 patient is alert and oriented and he offers no specific complaints. MRI brain results reviewed. He is medically stable for discharge - Related Data Previous Rx's Medication Instructions Recorded Last Taken Type Aspirin EC [Ecotrin] 325 mg PO QDAY #30 tablet. 12/24/19 Unknown Rx Aspirin EC [Ecotrin] 325 mg PO QDAY #7 tablet. 12/24/19 Unknown Rx Clopidogrel [Plavix] 75 mg PO QDAY #21 tablet 12/24/19 Unknown Rx QUEtiapine [SEROquel] 200 mg PO QHS #30 12/24/19 Unknown Rx Acetaminophen [Acetaminophen TAB] 650 mg PO Q4H PRN tablet 05/22/20 Unknown Rx AtorvaSTATin [Lipitor] 40 mg PO QHS #30 tablet 05/22/20 Unknown Rx Chlorthalidone [Thalitone] 25 mg PO QDAY #30 tablet 05/22/20 Unknown Rx Clopidogrel [Plavix] 75 mg PO QDAY #30 tablet 05/22/20 Unknown Rx Famotidine [Pepcid] 20 mg PO BID #60 tablet 05/22/20 Unknown Rx QUEtiapine [SEROquel] 100 mg PO HS #14 tablet 05/22/20 Unknown Rx amLODIPine 10 mg PO QDAY #30 tablet 05/22/20 Unknown Rx carvediloL [Coreg] 25 mg PO BID #60 tablet 05/22/20 Unknown Rx cloNIDine [Catapres] 0.1 mg PO Q8H #90 tablet 05/22/20 Unknown Rx hydrALAZINE [Apresoline TAB] 25 mg PO Q8HR #90 tablet 05/22/20 Unknown Rx Allergies Allergy/AdvReac Type Severity Reaction Status Date / Time tomato Allergy Hives Verified 04/21/19 09:44 ED Review of Systems ROS: Stated complaint: AMS Other details as noted in HPI Comment: All other systems reviewed and negative ED Past Medical Hx - Past Medical History Hx Hypertension: Yes Hx CVA: Yes Hx Congestive Heart Failure: No Hx Diabetes: No Hx Asthma: No Hx COPD: No Additional medical history: Cerebral Aneurysm, ETOH abuse, seizures, schizophrenia, TIA - Surgical History Past Surgical History?: No - Social History Smoking Status: Current Every Day Smoker - Medications Home Medications: Home Medications Medication Instructions Recorded Confirmed Last Taken Type Aspirin EC [Ecotrin] 325 mg PO QDAY #30 tablet. 12/24/19 Unknown Rx Aspirin EC [Ecotrin] 325 mg PO QDAY #7 tablet. 12/24/19 Unknown Rx Clopidogrel [Plavix] 75 mg PO QDAY #21 tablet 12/24/19 Unknown Rx QUEtiapine [SEROquel] 200 mg PO QHS #30 12/24/19 Unknown Rx Acetaminophen [Acetaminophen TAB] 650 mg PO Q4H PRN tablet 05/22/20 Unknown Rx AtorvaSTATin [Lipitor] 40 mg PO QHS #30 tablet 05/22/20 Unknown Rx Chlorthalidone [Thalitone] 25 mg PO QDAY #30 tablet 05/22/20 Unknown Rx Clopidogrel [Plavix] 75 mg PO QDAY #30 tablet 05/22/20 Unknown Rx Famotidine [Pepcid] 20 mg PO BID #60 tablet 05/22/20 Unknown Rx QUEtiapine [SEROquel] 100 mg PO HS #14 tablet 05/22/20 Unknown Rx amLODIPine 10 mg PO QDAY #30 tablet 05/22/20 Unknown Rx carvediloL [Coreg] 25 mg PO BID #60 tablet 05/22/20 Unknown Rx cloNIDine [Catapres] 0.1 mg PO Q8H #90 tablet 05/22/20 Unknown Rx hydrALAZINE [Apresoline TAB] 25 mg PO Q8HR #90 tablet 05/22/20 Unknown Rx ED Physical Exam - General Limitations: Altered Mental Status General appearance: alert, in no apparent distress - Head Head exam: Present: atraumatic, normocephalic - Eye Eye exam: Present: normal appearance - ENT ENT exam: Present: mucous membranes moist - Neck Neck exam: Present: normal inspection - Respiratory Respiratory exam: Present: normal lung sounds bilaterally. Absent: respiratory distress, wheezes, rales, rhonchi - Cardiovascular Cardiovascular Exam: Present: regular rate, normal rhythm. Absent: systolic murmur, diastolic murmur, rubs, gallop - GI/Abdominal GI/Abdominal exam: Present: soft, normal bowel sounds. Absent: distended, tenderness, guarding - Rectal Rectal exam: Present: deferred - Extremities Exam Extremities exam: Present: normal inspection - Back Exam Back exam: Present: normal inspection - Neurological Exam Neurological exam: Present: altered (Slurred speech), oriented X3. Absent: motor sensory deficit - Psychiatric Psychiatric exam: Present: normal affect, normal mood - Skin Skin exam: Present: warm, dry, intact, normal color. Absent: rash - Assessment Assessment Interval: Baseline - Level of Consciousness 1a. Level of Consciousness: arousable/minor stimuli - LOC Questions 1b. LOC Questions: answers both correctly - LOC Command 1c. LOC Commands: performs tasks correctly - Best Gaze 2. Best Gaze: normal - Visual 3. Visual: no visual loss - Facial Palsy 4. Facial Palsy: normal symmetrical movement - Motor Arm 5a. Motor Arm Left: no drift 5b. Motor Arm Right: no drift - Motor Leg 6a. Motor Leg Left: no drift 6b. Motor Leg Right: no drift - Limb Ataxia 7. Limb Ataxia: absent - Sensory 8. Sensory: normal - Best Language 9. Best Language: mild/moderate aphasia - Dysarthria 10. Dysarthria: mild/moderate dysarthria - Extinction and Inattention 11. Extinction/Inattention: no abnormality - Scoring Total Score: 3 Stroke Severity: Minor Stroke ED Course Vital Signs 03/28/21 22:43 Temperature 98.1 F Pulse Rate 74 Respiratory 18 Rate Blood Pressure 144/70 [Right] O2 Sat by Pulse 95 Oximetry - Lab Data Result diagrams: 03/28/21 23:21 03/28/21 23:21 Lab Results 03/28/21 03/28/21 03/28/21 Range/Units 23:21 23:21 23:21 WBC 5.4 (4.5-11.0) K/mm3 RBC 4.95 (3.65-5.03) M/mm3 Hgb 13.5 (11.8-15.2) gm/dl Hct 42.9 (35.5-45.6) % MCV 87 (84-94) fl MCH 27 L (28-32) pg MCHC 32 (32-34) % RDW 15.1 (13.2-15.2) % Plt Count 193 (140-440) K/mm3 Lymph % (Auto) 34.7 (13.4-35.0) % Hays % (Auto) 5.1 (0.0-7.3) % Eos % (Auto) 2.6 (0.0-4.3) % Baso % (Auto) 0.3 (0.0-1.8) % Lymph # (Auto) 1.9 (1.2-5.4) K/mm3 Hays # (Auto) 0.3 (0.0-0.8) K/mm3 Eos # (Auto) 0.1 (0.0-0.4) K/mm3 Baso # (Auto) 0.0 (0.0-0.1) K/mm3 Seg Neutrophils % 57.3 (40.0-70.0) % Seg Neutrophils # 3.1 (1.8-7.7) K/mm3 PT (12.2-14.9) Sec. INR (0.87-1.13) APTT (24.2-36.6) Sec. Thrombin Time (15.1-19.6) Sec. Sodium 141 (137-145) mmol/L Potassium 3.6 (3.6-5.0) mmol/L Chloride 103.7 (98-107) mmol/L Carbon Dioxide 21 L (22-30) mmol/L Anion Gap 20 mmol/L BUN 15 (9-20) mg/dL Creatinine 1.6 H (0.8-1.3) mg/dL Estimated GFR 55 ml/min BUN/Creatinine Ratio 9 % Glucose 159 H (75-100) mg/dL POC Glucose (70-105) mg/dL Calcium 9.2 (8.4-10.2) mg/dL Troponin T (0.00-0.029) ng/mL Urine Opiates Screen Urine Methadone Screen Ur Barbiturates Screen Ur Phencyclidine Scrn Ur Amphetamines Screen U Benzodiazepines Scrn Urine Cocaine Screen U Marijuana (THC) Screen Drugs of Abuse Note Plasma/Serum Alcohol 0.03 (0-0.07) % 03/29/21 03/29/21 03/29/21 Range/Units 00:58 01:30 Unknown WBC (4.5-11.0) K/mm3 RBC (3.65-5.03) M/mm3 Hgb (11.8-15.2) gm/dl Hct (35.5-45.6) % MCV (84-94) fl MCH (28-32) pg MCHC (32-34) % RDW (13.2-15.2) % Plt Count (140-440) K/mm3 Lymph % (Auto) (13.4-35.0) % Hays % (Auto) (0.0-7.3) % Eos % (Auto) (0.0-4.3) % Baso % (Auto) (0.0-1.8) % Lymph # (Auto) (1.2-5.4) K/mm3 Hays # (Auto) (0.0-0.8) K/mm3 Eos # (Auto) (0.0-0.4) K/mm3 Baso # (Auto) (0.0-0.1) K/mm3 Seg Neutrophils % (40.0-70.0) % Seg Neutrophils # (1.8-7.7) K/mm3 PT 13.2 (12.2-14.9) Sec. INR 0.90 (0.87-1.13) APTT 26.8 (24.2-36.6) Sec. Thrombin Time 16.7 (15.1-19.6) Sec. Sodium (137-145) mmol/L Potassium (3.6-5.0) mmol/L Chloride (98-107) mmol/L Carbon Dioxide (22-30) mmol/L Anion Gap mmol/L BUN (9-20) mg/dL Creatinine (0.8-1.3) mg/dL Estimated GFR ml/min BUN/Creatinine Ratio % Glucose (75-100) mg/dL POC Glucose 124 H (70-105) mg/dL Calcium (8.4-10.2) mg/dL Troponin T (0.00-0.029) ng/mL Urine Opiates Screen Presumptive negative Urine Methadone Screen Presumptive negative Ur Barbiturates Screen Presumptive negative Ur Phencyclidine Scrn Presumptive negative Ur Amphetamines Screen Presumptive negative U Benzodiazepines Scrn Presumptive negative Urine Cocaine Screen Presumptive negative U Marijuana (THC) Screen Presumptive positive Drugs of Abuse Note Disclamer Plasma/Serum Alcohol (0-0.07) % 03/29/21 Range/Units Unknown WBC (4.5-11.0) K/mm3 RBC (3.65-5.03) M/mm3 Hgb (11.8-15.2) gm/dl Hct (35.5-45.6) % MCV (84-94) fl MCH (28-32) pg MCHC (32-34) % RDW (13.2-15.2) % Plt Count (140-440) K/mm3 Lymph % (Auto) (13.4-35.0) % Hays % (Auto) (0.0-7.3) % Eos % (Auto) (0.0-4.3) % Baso % (Auto) (0.0-1.8) % Lymph # (Auto) (1.2-5.4) K/mm3 Hays # (Auto) (0.0-0.8) K/mm3 Eos # (Auto) (0.0-0.4) K/mm3 Baso # (Auto) (0.0-0.1) K/mm3 Seg Neutrophils % (40.0-70.0) % Seg Neutrophils # (1.8-7.7) K/mm3 PT (12.2-14.9) Sec. INR (0.87-1.13) APTT (24.2-36.6) Sec. Thrombin Time (15.1-19.6) Sec. Sodium (137-145) mmol/L Potassium (3.6-5.0) mmol/L Chloride (98-107) mmol/L Carbon Dioxide (22-30) mmol/L Anion Gap mmol/L BUN (9-20) mg/dL Creatinine (0.8-1.3) mg/dL Estimated GFR ml/min BUN/Creatinine Ratio % Glucose (75-100) mg/dL POC Glucose (70-105) mg/dL Calcium (8.4-10.2) mg/dL Troponin T < 0.010 (0.00-0.029) ng/mL Urine Opiates Screen Urine Methadone Screen Ur Barbiturates Screen Ur Phencyclidine Scrn Ur Amphetamines Screen U Benzodiazepines Scrn Urine Cocaine Screen U Marijuana (THC) Screen Drugs of Abuse Note Plasma/Serum Alcohol (0-0.07) % - EKG Data -: EKG Interpreted by Ma 03/29/21 02:25 EKG shows normal sinus rhythm rate of 99. Scott is normal. T wave inversions laterally. No ST segment elevations or depressions. Time of interpretation 0140 - Radiology Data [facility] [address] [place] [address] Cat Scan Report Signed Patient: PAWEL JEAN MR#: [id number] [id number] : 1965 Acct:[id number] Age/Sex: 56 / M ADM Date: 03/28/21 Loc: ED Attending Dr: Ordering Physician: JAROD WHATLEY MD Date of Service: 03/29/21 Procedure(s): CT head/brain wo con Accession Number(s): [id number] cc: JAROD WHATLEY MD CT head/brain wo con INDICATION / CLINICAL INFORMATION: CODE STROKE PROTOCOL!!! AMS, Stroke-Like symptoms. TECHNIQUE: Axial CT imaging of the brain was obtained without contrast. Coronal and sagittal reformatted imaging obtained and reviewed. All CT scans at this location are performed using CT dose reduction for ALARA by means of automated exposure control. COMPARISON: Prior head CT 05/19/2020 FINDINGS: No intracranial hemorrhage, mass, or midline shift noted. No extra-axial fluid collection or suggestion for acute territorial infarction. There is advanced cerebral and cere bellar atrophy. Extensive decreased attenuation throughout the cerebral white matter bilaterally is noted unchanged from prior exam and consistent with prominent microvascular angiopathy. Atherosclerotic disease is seen in the anterior and posterior circulation. Visualized paranasal sinuses and mastoid air cells are well aerated and clear. No calvarial abnormality of significance. IMPRESSION: 1. No acute intracranial abnormality. Head CT is unchanged compared with prior exam of 05/19/2020. 2. Advanced cerebral/cerebellar atrophy with marked microvascular angiopathy. A negative report for acute stroke was given to Dr. Whatley at 0037 hours AMUSEMENT EQUIPMENT OPERATOR Signer Name: Claire Menjivar MD Signed: 03/29/2021 1:37 AM Workstation Name: [id number] CT angio neck INDICATION / CLINICAL INFORMATION: 56 years Male; CODE STROKE PROTOCOL!!! AMS, Stroke-Like symptoms. TECHNIQUE: Thin cut axial images obtained through the head during IV bolus contrast administration. Sagittal, coronal, and 3 plane MIP reconstructions performed by the technologist. NASCET type criteria used evaluate stenoses. All CT scans at this location are performed using CT dose reduction for ALARA by means of automated exposure control. COMPARISON: The study is compared to previous CTA neck of 05/19/2020. FINDINGS: CAROTID ARTERIES: The motion and beam hardening degrade the image quality. However, there are small foci of calcification without CTA evidence of significant developing stenosis by NASCET criteria. VERTEBRAL ARTERIES: There is also no clear CT evidence of significant developing stenosis involving the cervical vertebral arteries by NASCET criteria. ARCH: There is no significant focal stenosis involving origins of the arch vessels. ADDITIONAL FINDINGS: Remainder of the surrounding soft tissues are grossly normal. IMPRESSION: There is no CTA evidence of significant developing stenosis involving the cervical carotid or vertebral arteries by NASCET criteria from 05/19/2020. Signer Name: Rivas Beck MD Signed: 03/29/2021 2:05 AM Workstation Name: [id number] CT angio head INDICATION / CLINICAL INFORMATION: 56 years Male; CODE STROKE PROTOCOL!!! AMS, Stroke-Like symptoms. TECHNIQUE: Thin cut axial images obtained through the head during IV bolus contrast administration. Sagittal, coronal, and 3 plane MIP reconstructions performed by the technologist. NASCET type criteria used evaluate stenoses. Automated exposure control utilized for radiation reduction purposes. COMPARISON: The previous study of 05/19/2020 cannot currently be retrieved for direct sapna rison. FINDINGS: INTERNAL CAROTID ARTERIES: There is atherosclerotic calcification involving the intracranial ICAs with mild to moderate segmental stenosis, particularly involving the cavernous and clinoid segments, greater on the right. VERTEBROBASILAR SYSTEM: There is also calcification involving intracranial vertebral arteries with moderate stenosis involving proximal segment on the left. Milder narrowing is seen more distally. CEREBRAL ARTERIES: There is marked focal stenosis involving the P2 segment of the left PASTOR. There is mild diffuse irregularity of the remaining cerebral arteries which may be exacerbated by the degree of motion. However, the findings may reflect mild diffuse atherosclerotic disease. There is no clear CTA evidence of large vessel occlusion. ANEURYSM: None identified. ADDITIONAL FINDINGS: No significant abnormality. IMPRESSION: There is atherosclerotic calcification involving the distal internal carotid arteries with mild to moderate segmental stenosis as detailed above. There is also calcification involving intracranial vertebral arteries with moderate narrowing of the proximal intracranial segment on the left. There is mild diffuse irregularity of the intracranial vessels which may be exacerbated by the degree of motion though indicative of diffuse atherosclerotic disease given the above findings. Additionally, there is marked focal stenosis involving the P2 segment. There is no clear CT evidence of large vessel occlusion amenable to endovascular treatment and correlation would be needed in this patient with history of altered mental status in unspecified stroke like symptoms. Signer Name: Rivas Beck MD Signed: 03/29/2021 2:18 AM Workstation Name: [id number] - Medical Decision Making Patient is a 56-year-old F [place] male who is presenting with slurred speech and dizziness. Know exactly what time this occurred. Tried to call the patient's sister at 1 AM there was no answer. Was assumed by paramedics that the patient was intoxicated with alcohol since there was multiple bottles of alcohol new the patient while he was on the ground. Once the laboratory studies returned it was revealed that the patient was not intoxicated. Patient still having a great deal of slurred speech and a stroke alert was initiated. CT of the head and CT of the neck and head angio did not show any acute stroke or any large vessel occlusion. Because of the unknown time when the patient's symptoms began patient is not a TPA candidate. Patient be admitted to the hospitalist service for further management. Critical care attestation.: If time is entered above; I have spent that time in minutes in the direct care of this critically ill patient, excluding procedure time. ED Disposition Clinical Impression: CVA (cerebral vascular accident) Disposition: ADMITTED INPATIENT Is pt being admited?: Yes Does the pt Need Aspirin: No Condition: Stable Time of Disposition: 02:30
--- NOTE | 2021-03-29 02:23 | Cat Scan Report ---
CT angio head INDICATION / CLINICAL INFORMATION: 56 years Male; CODE STROKE PROTOCOL!!! AMS, Stroke-Like symptoms. TECHNIQUE: Thin cut axial images obtained through the head during IV bolus contrast administration. S agittal, coronal, and 3 plane MIP reconstructions performed by the technologist. NASCET type criteria used evaluate stenoses. Automated exposure control utilized for radiation reduction purposes. COMPARISON: The previous study of 05/19/2020 cannot currently be retrieved for direct comparison. FINDINGS: INTERNAL CAROTID ARTERIES: There is atherosclerotic calcification involving the intracranial ICAs wit h mild to moderate segmental stenosis, particularly involving the cavernous and clinoid segments, gre ater on the right. VERTEBROBASILAR SYSTEM: There is also calcification involving intracranial vertebral arteries with mo derate stenosis involving proximal segment on the left. Milder narrowing is seen more distally. CEREBRAL ARTERIES: There is marked focal stenosis involving the P2 segment of the left ELECTRIC METER READER. There is mild diffuse irregularity of the remaining cerebral arteries which may be exacerbated by the degree o f motion. However, the findings may reflect mild diffuse atherosclerotic disease. There is no clear C TA evidence of large vessel occlusion. ANEURYSM: None identified. ADDITIONAL FINDINGS: No significant abnormality. IMPRESSION: There is atherosclerotic calcification involving the distal internal carotid arteries with mild to mo derate segmental stenosis as detailed above. There is also calcification involving intracranial vertebral arteries with moderate narrowing of the proximal intracranial segment on the left. There is mild diffuse irregularity of the intracranial vessels which may be exacerbated by the degree of motion though indicative of diffuse atherosclerotic disease given the above findings. Additionall y, there is marked focal stenosis involving the P2 segment. There is no clear CT evidence of large vessel occlusion amenable to endovascular treatment and correl ation would be needed in this patient with history of altered mental status in unspecified stroke lik e symptoms. Signer Name: Rivas Beck MD Signed: 03/29/2021 2:18 AM Workstation Name: [id number]
[2021-03-29] MEDS ORDERED: ASPIRIN 325 MG TAB PO ONE (02:31)
[2021-03-29] MEDS ORDERED: LORazepam 2 MG/ML VIAL IV PRN ×3 (04:35)
[2021-03-29] MEDS ORDERED: METOCLOPRAMIDE 10 MG TAB PO PRN (05:00)
[2021-03-29] MEDS ORDERED: ONDANSETRON 4 MG/2 ML INJ IV PRN ×2 (05:00)
[2021-03-29] MEDS ORDERED: ACETAMINOPHEN 325 MG TAB PO PRN (05:00)
[2021-03-29] MEDS ORDERED: MORPHINE 2 MG/1 ML INJ IV PRN (05:00)
[2021-03-29] MEDS ORDERED: MORPHINE 4 MG/1 ML INJ IV PRN (05:00)
[2021-03-29] MEDS ORDERED: MAGNESIUM HYDROXIDE (MOM) ORAL LIQD UDC PO PRN ×2 (05:00)
[2021-03-29] MEDS ORDERED: PROMETHAZINE 25 MG RECT SUPP PR PRN (05:00)
--- NOTE | 2021-03-29 05:12 | History and Physical Report ---
History of Present Illness Date of examination: 03/29/21 Date of admission: 03/29/2021 Chief complaint: Slurred Speech History of present illness: 56-year-old -[place] male with known history of hypertension, alcohol dependence and a previous CVA without any deficit brought into the emergency room today having been found lying on the ground for unknown period of time. Patient states that he has been dizzy all day but denies any headache denies any diaphoresis. Patient denies any fever or chills, no chest pain or shortness of breath, no nausea vomiting and no abdominal pain. EMS had found several bottles of beer around patient on the field and also found a prescription bottle of Klonopin. He was initially combative towards the paramedics however in the emergency room became more alert and oriented but was found to have slurred speech. Work-up in the emergency room today, alcohol level was 0.03. CTA of the head and neck and CT of the head did not show any acute findings. Past History Past Medical History: hypertension, stroke, other (Cerebral Aneurysm, ETOH abuse, seizures, schizophrenia, TIA) Past Surgical History: No surgical history Social history: smoking (Current daily Smoker) Family history: no significant family history Medications and Allergies Allergies Allergy/AdvReac Type Severity Reaction Status Date / Time tomato Allergy Hives Verified 04/21/19 09:44 Home Medications Medication Instructions Recorded Confirmed Last Taken Type Aspirin EC [Ecotrin] 325 mg PO QDAY #30 tablet. 12/24/19 Unknown Rx Aspirin EC [Ecotrin] 325 mg PO QDAY #7 tablet. 12/24/19 Unknown Rx Clopidogrel [Plavix] 75 mg PO QDAY #21 tablet 12/24/19 Unknown Rx QUEtiapine [SEROquel] 200 mg PO QHS #30 12/24/19 Unknown Rx Acetaminophen [Acetaminophen TAB] 650 mg PO Q4H PRN tablet 05/22/20 Unknown Rx AtorvaSTATin [Lipitor] 40 mg PO QHS #30 tablet 05/22/20 Unknown Rx Chlorthalidone [Thalitone] 25 mg PO QDAY #30 tablet 05/22/20 Unknown Rx Clopidogrel [Plavix] 75 mg PO QDAY #30 tablet 05/22/20 Unknown Rx Famotidine [Pepcid] 20 mg PO BID #60 tablet 05/22/20 Unknown Rx QUEtiapine [SEROquel] 100 mg PO HS #14 tablet 05/22/20 Unknown Rx amLODIPine 10 mg PO QDAY #30 tablet 05/22/20 Unknown Rx carvediloL [Coreg] 25 mg PO BID #60 tablet 05/22/20 Unknown Rx cloNIDine [Catapres] 0.1 mg PO Q8H #90 tablet 05/22/20 Unknown Rx hydrALAZINE [Apresoline TAB] 25 mg PO Q8HR #90 tablet 05/22/20 Unknown Rx Active Meds: Active Medications Acetaminophen (Acetaminophen 325 Mg Tab) 650 mg PO Q4H PRN PRN Reason: Pain MILD(1-3)/Fever >100.5/PAUL Aspirin (Aspirin 325 Mg Tab) 325 mg PO QDAY ALEJANDRINA Atorvastatin Calcium (Atorvastatin 40 Mg Tab) 40 mg PO QHS ALEJANDRINA Bisacodyl (Bisacodyl 10 Mg Rect Supp) 10 mg AR QDAY PRN PRN Reason: Constipation Lorazepam (Lorazepam 2 Mg/Ml Vial) 2 mg IV Q1HR PRN PRN Reason: CIWA-Ar 8-15 Lorazepam (Lorazepam 2 Mg/Ml Vial) 4 mg IV Q1HR PRN PRN Reason: CIWA-Ar 16-25 Lorazepam (Lorazepam 2 Mg/Ml Vial) 4 mg IV Q15MIN PRN PRN Reason: CIWA-Ar >25 Magnesium Hydroxide (Magnesium Hydroxide (Mom) Oral Liqd Udc) 30 ml PO Q4H PRN PRN Reason: Constipation Magnesium Hydroxide (Magnesium Hydroxide (Mom) Oral Liqd Udc) 30 ml PO Q4H PRN PRN Reason: Constipation Metoclopramide HCl (Metoclopramide 10 Mg Tab) 10 mg PO Q6H PRN PRN Reason: Nausea And Vomiting Morphine Sulfate (Morphine 2 Mg/1 Ml Inj) 2 mg IV Q4H PRN PRN Reason: Pain, Moderate (4-6) Morphine Sulfate (Morphine 4 Mg/1 Ml Inj) 4 mg IV Q4H PRN PRN Reason: Pain , Severe (7-10) Ondansetron HCl (Ondansetron 4 Mg/2 Ml Inj) 4 mg IV Q8H PRN PRN Reason: Nausea And Vomiting Ondansetron HCl (Ondansetron 4 Mg/2 Ml Inj) 4 mg IV Q8H PRN PRN Reason: Nausea And Vomiting Promethazine HCl (Promethazine 25 Mg Rect Supp) 25 mg AR Q6H PRN PRN Reason: Nausea And Vomiting Sodium Chloride (Sodium Chloride 0.9% 10 Ml Flush Syringe) 10 ml IV BID ALEJANDRINA Sodium Chloride (Sodium Chloride 0.9% 10 Ml Flush Syringe) 10 ml IV PRN PRN PRN Reason: LINE FLUSH Sodium Chloride (Sodium Chloride 0.9% 10 Ml Flush Syringe) 10 ml INJ PRN PRN PRN Reason: LINE FLUSH Review of Systems Constitutional: no fever, no chills Ears, nose, mouth and throat: no nasal congestion, no sore throat Cardiovascular: no chest pain, no palpitations Respiratory: no cough, no shortness of breath Gastrointestinal: no abdominal pain, no nausea, no vomiting, no diarrhea Genitourinary Male: no dysuria, no hematuria, no nocturia Musculoskeletal: no neck pain, no low back pain Integumentary: no rash, no pruritis Neurological: no headaches, no confusion Psychiatric: no anxiety, no depression Endocrine: no polyphagia, no polydipsia, no polyuria, no nocturia Exam - Constitutional Vitals: Temp Pulse Resp BP Pulse Ox 98.1 F 87 14 145/98 96 03/28/21 22:43 03/29/21 03:45 03/29/21 03:54 03/29/21 03:45 03/29/21 03:54 General appearance: Present: no acute distress - EENT Eyes: Present: PERRL, EOM intact. Absent: scleral icterus ENT: hearing intact, clear oral mucosa, dentition normal - Neck Neck: Present: supple, normal ROM - Respiratory Respiratory effort: normal Respiratory: bilateral: CTA - Cardiovascular Rhythm: regular Heart Sounds: Present: S1 & S2. Absent: gallop, systolic murmur, diastolic murmur, rub, click - Extremities Extremities: no ischemia, pulses intact, pulses symmetrical, No edema, normal temperature, normal color, Full ROM Peripheral Pulses: within normal limits - Abdominal General gastrointestinal: Present: soft, non-tender, non-distended, normal bowel sounds. Absent: mass - Integumentary Integumentary: Present: clear, warm, dry. Absent: rash - Musculoskeletal Musculoskeletal: strength equal bilaterally - Psychiatric Psychiatric: appropriate mood/affect, intact judgment & insight, memory intact, cooperative - Neurologic Neurologic: CNII-XII intact, no focal deficits, moves all extremities HEART Score - HEART Score Troponin: Troponin T < 0.010 ng/mL (0.00-0.029) 03/29/21 Unknown Results - Labs CBC & Chem 7: 03/28/21 23:21 03/28/21 23:21 Labs: Abnormal lab results 03/28/21 03/28/21 03/29/21 Range/Units 23:21 23:21 00:58 MCH 27 L (28-32) pg Carbon Dioxide 21 L (22-30) mmol/L Creatinine 1.6 H (0.8-1.3) mg/dL Glucose 159 H (75-100) mg/dL POC Glucose 124 H (70-105) mg/dL Assessment and Plan - Patient Problems (1) Acute encephalopathy Current Visit: No Status: Acute Plan to address problem: Possibly secondary to CVA via alcohol abuse We will monitor mental status. Consult placed to neurology for evaluation and recommendations. Patient placed on daily aspirin and statin. (2) Alcohol dependence Current Visit: No Status: Acute Qualifiers: Substance use status: uncomplicated Qualified Code(s): F10.20 - Alcohol dependence, uncomplicated Plan to address problem: Patient placed on CIWA protocol. (3) CKD (chronic kidney disease) Current Visit: No Status: Acute Plan to address problem: Will request nephrology evaluation and recommendation. (4) Hyperlipidemia Current Visit: No Status: Chronic Qualifiers: Hyperlipidemia type: unspecified Qualified Code(s): E78.5 - Hyperlipidemia, unspecified Plan to address problem: We will continue on routine home medications and monitor lipid profile. (5) Hypertension Current Visit: No Status: Chronic Qualifiers: Hypertension type: essential hypertension Plan to address problem: We will resume routine home medications and monitor vital signs closely (6) DVT prophylaxis Current Visit: No Status: Acute Plan to address problem: Patient placed on subcutaneous heparin. (7) Full code status Current Visit: Yes Status: Acute Plan to address problem: Patient is full code.
--- NOTE | 2021-03-29 08:20 | Consultation ---
History of Present Illness Consult date: 03/29/21 Reason for Consult: Slurred speech and alcoholism History of present illness: Slurred Speech History of present illness: 56-year-old -[place] male with known history of hypertension, alcohol dependence and a previous CVA without any deficit brought into the emergency room today having been found lying on the ground for unknown period of time. Patient states that he has been dizzy all day but denies any headache denies any diaphoresis. Patient denies any fever or chills, no chest pain or shortness of breath, no nausea vomiting and no abdominal pain. EMS had found several bottles of beer around patient on the field and also found a prescription bottle of Klonopin. He was initially combative towards the paramedics however in the emergency room became more alert and oriented but was found to have slurred speech. Work-up in the emergency room today, alcohol level was 0.03. CTA of the head and neck and CT of the head did not show any acute findings but astherosclerotic cahnges in Intra cranial BVs bilateral. According to pt. yesterday he had 2 drinks only and denied recreational drug intake , denied seizure or fall or syncopy ,according to him he had hx of CVA remote not sure about weakness , he run out of his BP medication for few days . Past History Past Medical History: hypertension, stroke, other (Cerebral Aneurysm, ETOH abuse, seizures, schizophrenia, TIA) Past Surgical History: No surgical history Social history: smoking (Current daily Smoker) Family history: no significant family history Medications and Allergies Allergies Allergy/AdvReac Type Severity Reaction Status Date / Time tomato Allergy Hives Verified 04/21/19 09:44 Home Medications Medication Instructions Recorded Confirmed Last Taken Type Aspirin EC [Ecotrin] 325 mg PO QDAY #30 tablet. 12/24/19 Unknown Rx Aspirin EC [Ecotrin] 325 mg PO QDAY #7 tablet. 12/24/19 Unknown Rx Clopidogrel [Plavix] 75 mg PO QDAY #21 tablet 12/24/19 Unknown Rx QUEtiapine [SEROquel] 200 mg PO QHS #30 12/24/19 Unknown Rx Acetaminophen [Acetaminophen TAB] 650 mg PO Q4H PRN tablet 05/22/20 Unknown Rx AtorvaSTATin [Lipitor] 40 mg PO QHS #30 tablet 05/22/20 Unknown Rx Chlorthalidone [Thalitone] 25 mg PO QDAY #30 tablet 05/22/20 Unknown Rx Clopidogrel [Plavix] 75 mg PO QDAY #30 tablet 05/22/20 Unknown Rx Famotidine [Pepcid] 20 mg PO BID #60 tablet 05/22/20 Unknown Rx QUEtiapine [SEROquel] 100 mg PO HS #14 tablet 05/22/20 Unknown Rx amLODIPine 10 mg PO QDAY #30 tablet 05/22/20 Unknown Rx carvediloL [Coreg] 25 mg PO BID #60 tablet 05/22/20 Unknown Rx cloNIDine [Catapres] 0.1 mg PO Q8H #90 tablet 05/22/20 Unknown Rx hydrALAZINE [Apresoline TAB] 25 mg PO Q8HR #90 tablet 05/22/20 Unknown Rx Active Meds: Active Medications Acetaminophen (Acetaminophen 325 Mg Tab) 650 mg PO Q4H PRN PRN Reason: Pain MILD(1-3)/Fever >100.5/PAUL Aspirin (Aspirin 325 Mg Tab) 325 mg PO QDAY ALEJANDRINA Atorvastatin Calcium (Atorvastatin 40 Mg Tab) 40 mg PO QHS ALEJANDRINA Bisacodyl (Bisacodyl 10 Mg Rect Supp) 10 mg IA QDAY PRN PRN Reason: Constipation Lorazepam (Lorazepam 2 Mg/Ml Vial) 2 mg IV Q1HR PRN PRN Reason: CIWA-Ar 8-15 Lorazepam (Lorazepam 2 Mg/Ml Vial) 4 mg IV Q1HR PRN PRN Reason: CIWA-Ar 16-25 Lorazepam (Lorazepam 2 Mg/Ml Vial) 4 mg IV Q15MIN PRN PRN Reason: CIWA-Ar >25 Magnesium Hydroxide (Magnesium Hydroxide (Mom) Oral Liqd Udc) 30 ml PO Q4H PRN PRN Reason: Constipation Magnesium Hydroxide (Magnesium Hydroxide (Mom) Oral Liqd Udc) 30 ml PO Q4H PRN PRN Reason: Constipation Metoclopramide HCl (Metoclopramide 10 Mg Tab) 10 mg PO Q6H PRN PRN Reason: Nausea And Vomiting Morphine Sulfate (Morphine 2 Mg/1 Ml Inj) 2 mg IV Q4H PRN PRN Reason: Pain, Moderate (4-6) Morphine Sulfate (Morphine 4 Mg/1 Ml Inj) 4 mg IV Q4H PRN PRN Reason: Pain , Severe (7-10) Ondansetron HCl (Ondansetron 4 Mg/2 Ml Inj) 4 mg IV Q8H PRN PRN Reason: Nausea And Vomiting Ondansetron HCl (Ondansetron 4 Mg/2 Ml Inj) 4 mg IV Q8H PRN PRN Reason: Nausea And Vomiting Promethazine HCl (Promethazine 25 Mg Rect Supp) 25 mg IA Q6H PRN PRN Reason: Nausea And Vomiting Sodium Chloride (Sodium Chloride 0.9% 10 Ml Flush Syringe) 10 ml IV BID ALEJANDRINA Sodium Chloride (Sodium Chloride 0.9% 10 Ml Flush Syringe) 10 ml IV PRN PRN PRN Reason: LINE FLUSH Sodium Chloride (Sodium Chloride 0.9% 10 Ml Flush Syringe) 10 ml INJ PRN PRN PRN Reason: LINE FLUSH Review of Systems Constitutional: no fever, no chills Ears, nose, mouth and throat: no nasal congestion, no sore throat Cardiovascular: no chest pain, no palpitations Respiratory: no cough, no shortness of breath Gastrointestinal: no abdominal pain, no nausea, no vomiting, no diarrhea Genitourinary Male: no dysuria, no hematuria, no nocturia Musculoskeletal: no neck pain, no low back pain Integumentary: no rash, no pruritis Neurological: no headaches, no confusion Psychiatric: no anxiety, no depression Endocrine: no polyphagia, no polydipsia, no polyuria, no nocturia Past History Past Medical History: hypertension, stroke, other (Cerebral Aneurysm, ETOH abu se, seizures, schizophrenia, TIA) Past Surgical History: No surgical history Social history: smoking (Current daily Smoker) Family history: no significant family history Medications and Allergies Allergies Allergy/AdvReac Type Severity Reaction Status Date / Time tomato Allergy Hives Verified 04/21/19 09:44 Home Medications Medication Instructions Recorded Confirmed Last Taken Type Aspirin EC [Ecotrin] 325 mg PO QDAY #30 tablet. 12/24/19 Unknown Rx Aspirin EC [Ecotrin] 325 mg PO QDAY #7 tablet. 12/24/19 Unknown Rx Clopidogrel [Plavix] 75 mg PO QDAY #21 tablet 12/24/19 Unknown Rx QUEtiapine [SEROquel] 200 mg PO QHS #30 12/24/19 Unknown Rx Acetaminophen [Acetaminophen TAB] 650 mg PO Q4H PRN tablet 05/22/20 Unknown Rx AtorvaSTATin [Lipitor] 40 mg PO QHS #30 tablet 05/22/20 Unknown Rx Chlorthalidone [Thalitone] 25 mg PO QDAY #30 tablet 05/22/20 Unknown Rx Clopidogrel [Plavix] 75 mg PO QDAY #30 tablet 05/22/20 Unknown Rx Famotidine [Pepcid] 20 mg PO BID #60 tablet 05/22/20 Unknown Rx QUEtiapine [SEROquel] 100 mg PO HS #14 tablet 05/22/20 Unknown Rx amLODIPine 10 mg PO QDAY #30 tablet 05/22/20 Unknown Rx carvediloL [Coreg] 25 mg PO BID #60 tablet 05/22/20 Unknown Rx cloNIDine [Catapres] 0.1 mg PO Q8H #90 tablet 05/22/20 Unknown Rx hydrALAZINE [Apresoline TAB] 25 mg PO Q8HR #90 tablet 05/22/20 Unknown Rx Active Meds: Active Medications Acetaminophen (Acetaminophen 325 Mg Tab) 650 mg PO Q4H PRN PRN Reason: Pain MILD(1-3)/Fever >100.5/PAUL Aspirin (Aspirin 325 Mg Tab) 325 mg PO QDAY ALEJANDRINA Atorvastatin Calcium (Atorvastatin 40 Mg Tab) 40 mg PO QHS ALEJANDRINA Bisacodyl (Bisacodyl 10 Mg Rect Supp) 10 mg IA QDAY PRN PRN Reason: Constipation Lorazepam (Lorazepam 2 Mg/Ml Vial) 2 mg IV Q1HR PRN PRN Reason: CIWA-Ar 8-15 Lorazepam (Lorazepam 2 Mg/Ml Vial) 4 mg IV Q1HR PRN PRN Reason: CIWA-Ar 16-25 Lorazepam (Lorazepam 2 Mg/Ml Vial) 4 mg IV Q15MIN PRN PRN Reason: CIWA-Ar >25 Magnesium Hydroxide (Magnesium Hydroxide (Mom) Oral Liqd Udc) 30 ml PO Q4H PRN PRN Reason: Constipation Metoclopramide HCl (Metoclopramide 10 Mg Tab) 10 mg PO Q6H PRN PRN Reason: Nausea And Vomiting Morphine Sulfate (Morphine 2 Mg/1 Ml Inj) 2 mg IV Q4H PRN PRN Reason: Pain, Moderate (4-6) Morphine Sulfate (Morphine 4 Mg/1 Ml Inj) 4 mg IV Q4H PRN PRN Reason: Pain , Severe (7-10) Ondansetron HCl (Ondansetron 4 Mg/2 Ml Inj) 4 mg IV Q8H PRN PRN Reason: Nausea And Vomiting Promethazine HCl (Promethazine 25 Mg Rect Supp) 25 mg IA Q6H PRN PRN Reason: Nausea And Vomiting Sodium Chloride (Sodium Chloride 0.9% 10 Ml Flush Syringe) 10 ml IV BID ALEJANDRINA Sodium Chloride (Sodium Chloride 0.9% 10 Ml Flush Syringe) 10 ml IV PRN PRN PRN Reason: LINE FLUSH Physical Examination - Vital Signs Vital Signs: Vital Signs Temp Pulse Resp BP Pulse Ox 98.1 F 74 18 144/70 95 03/28/21 22:43 03/28/21 22:43 03/28/21 22:43 03/28/21 22:43 03/28/21 22:43 - Constitutional General appearance: comfortable - EENT EENT: Present: PERRL, mucous membranes moist - Respiratory Respiratory: Present: lungs clear, rhonchi - Cardiovascular Cardiovascular: Present: regular rate, normal S1, normal S2 Extremities: Present: no peripheral edema bilatateraly, no clubbing, cyanosis - Gastrointestinal Gastrointestinal: Present: normoactive bowel sounds - Integumentary Integumentary: Present: normal - Neurologic Cranial nerve examination: PERRL, EOMI, other (slight decrese bilateral EOM pursuit ,no clear nystagmus he denied diplipia,no visual field deficit not ) Speech examination: other (slight slurred unclrear , no aphasia) Detailed motor examination: other (slight left side pronator upper , he is with diffuse brisk reflexes and non sustained clonus , with positive simmons sign bilateral L>R , gait not done) - Level of Consciousness 1a. Level of Consciousness: alert/keenly responsive - LOC Questions 1b. LOC Questions: answers both correctly - LOC Command 1c. LOC Commands: performs tasks correctly - Best Gaze 2. Best Gaze: partial gaze palsy - Visual 3. Visual: no visual loss - Facial Palsy 4. Facial Palsy: normal symmetrical movement - Motor Arm 5a. Motor Arm Left: drift 5b. Motor Arm Right: no drift - Motor Leg 6a. Motor Leg Left: no drift 6b. Motor Leg Right: no drift - Limb Ataxia 7. Limb Ataxia: absent - Sensory 8. Sensory: normal - Best Language 9. Best Language: no aphasia - Dysarthria 10. Dysarthria: mild/moderate dysarthria - Extinction and Inattention 11. Extinction/Inattention: no abnormality - Scoring Total Score: 3 Stroke Severity: Minor Stroke Results - Laboratory Findings CBC and BMP: 03/28/21 23:21 03/28/21 23:21 Abnormal Lab Findings: Abnormal Labs 03/28/21 03/28/21 03/29/21 23:21 23:21 00:58 MCH 27 L Carbon Dioxide 21 L Creatinine 1.6 H Glucose 159 H POC Glucose 124 H Assessment and Plan Assessment and Plan 56-year-old -[place] male with known history of hypertension, alcohol dependence and a previous CVA without any deficit brought into the emergency room today having been found lying on the ground for unknown period of time. Patient states that he has been dizzy all day but denies any headache denies any diaphoresis. Patient denies any fever or chills, no chest pain or shortness of breath, no nausea vomiting and no abdominal pain. EMS had found several bottles of beer around patient on the field and also found a prescription bottle of Klonopin. He was initially combative towards the paramedics however in the emergency room became more alert and oriented but was found to have slurred speech. Work-up in the emergency room today, alcohol level was 0.03. CTA of the head and neck and CT of the head did not show any acute findings. - Patient Problems # Acute encephalopathy, found on the floor -possibility of seizure can not be excluded -drug related including alcohol? -Doubt acute CVA -- exam is remarkable for pursuit eye movment impairment and slight residual left side weakness ? remote -MRI brain showed multiple hemorrhagic remote changes in [place] ,mid brain ,Cerebellum and white matter ? related to HTN vs amyloid - pt. is placed on ASA and Plavix ?-- will change to ASA 81 mg and stop Plavix -echo is noted 50-55% EF -Lipitor 40 mg -LDL is pending -PT/ST evaluate # brisk reflexes and unsteady gait -r/o cervical mylopathy -MRI cerviacl spine # Alcohol dependence -Patient placed on CINH protocol. # CKD (chronic kidney disease) -Will request nephrology evaluation and recommendation. # Hyperlipidemia -We will continue on routine home medications and monitor lipid profile. # Hypertension -poor compliance with medication -We will resume routine home medications and monitor vital signs closely # Recreational drug intake -aminly THC # DVT prophylaxis -Patient placed on subcutaneous heparin. # Full code status -Patient is full code.
[2021-03-29] MEDS ORDERED: ASPIRIN 325 MG TAB PO SCH ×2 (10:00→12:45)
--- NOTE | 2021-03-29 12:24 | Magnetic Resonance Report ---
NONENHANCED MR SCAN OF THE BRAIN: INDICATION / CLINICAL INFORMATION: stroke. TECHNIQUE: Multiplanar, multisequence MR images of the brain obtained. COMPARISON: MR scan of the brain from May 13 09/25/[address] scan of the head from 03/29/2021 FINDINGS: BRAIN / INTRACRANIAL CONTENTS: No acute ischemia, acute hemorrhage, mass effect, midline shift, or hy drocephalus. ADC map images not available. In the gradient echo images, multiple punctate areas of washburn sceptibility changes in the right cerebellar hemisphere, right julisa. If there is history of hypertens ion, these could be from chronic microbleeds. These remain unchanged. Chronic changes in the julisa due to chronic small vessel disease; no focal lesion in the cerebellar he mispheres. However, mild to moderate cerebellar involution. Confluent periventricular and deep hemisp heric white matter hyperintensity more prominent in the left frontal centrum semiovale; unchanged; pr obably due to chronic small vessel disease. Moderate cortical involution CRANIOCERVICAL JUNCTION: No significant abnormality. VASCULAR FLOW-VOIDS: No significant abnormality. ORBITS: No significant abnormality of visualized orbits. SINUSES / MASTOIDS: No significant abnormality of visualized sinuses and mastoid air cells. ADDITIONAL FINDINGS: None. IMPRESSION: 1. No acute/subacute ischemia or hemorrhage; no change in the multiple chronic microbleed's; chronic changes in the julisa and in the white matter due to chronic small vessel disease; unchanged Signer Name: Yves Fernandez MD Signed: 03/29/2021 12:20 PM Workstation Name: [id number]
--- NOTE | 2021-03-29 14:34 | Event Note ---
Date: 03/29/21 Patient seen and examined at bedside. He reports needing to be discharged to a rehab facility versus his sister's home at her urging. He is able to feed himself, clean and bathe himself. He uses a walker to ambulate. Does not recall events that led to him being hospitalized. We will continue current plan with tentative discharge tomorrow.
--- NOTE | 2021-03-29 15:25 | Magnetic Resonance Report ---
MR cervical spine wo con INDICATION / CLINICAL INFORMATION: Cervical Myelopathy, RT SIDED WEAKNESS. TECHNIQUE: Multisequence, multiplanar images of the cervical spine were obtained. COMPARISON: None available. FINDINGS: ALIGNMENT: Normal alignment. VERTEBRAE:No aggressive osseous marrow signal. Vertebral body heights are preserved. SPINAL CORD: No abnormal cord signal [id number] ANALYSIS: C2-C3: No significant spinal canal stenosis. No significant foraminal narrowing. C3-C4: Spondylitic ridging. No significant spinal canal stenosis. No significant foraminal narrowing. C4-C5: Spondylitic ridging. No significant spinal canal stenosis. No significant foraminal narrowing. C5-C6: Spondylitic ridging. No significant spinal canal stenosis. No significant foraminal narrowing. C6-C7: Spondylytic ridging. No significant spinal canal stenosis. No significant foraminal narrowing. C7-T1: No significant spinal canal stenosis. No significant foraminal narrowing. PARASPINAL SOFT TISSUES: No significant abnormality. ADDITIONAL FINDINGS: None. IMPRESSION: 1. Mild spondylosis. No significant spinal canal or foraminal stenosis at any level. CERVICAL GRADING DEFINITIONS FOR THE PURPOSES OF THIS REPORT: Cervical canal stenosis: No stenosis: No significant attenuation of the CSF spaces Mild stenosis: Attenuation or effacement of the ventral CSF Moderate stenosis: Effacement of both the ventral and dorsal CSF, cord flattening, but so me CSF remaining Severe stenosis: Effacement of all CSF, cord compression Cervical neural foraminal stenosis (Xochitl et al. Spanish J Radiol. 2015 Dec-Jan;16(6):1294-302): No stenosis: No attenuation of the fat in the foramen Mild stenosis: Narrowest point of the foramen is larger than the extraforaminal nerve Moderate stenosis: Narrowest point of the foramen remains greater than 50% of the caliber of the extraforaminal nerve Severe stenosis: Narrowest point of the foramen is less than 50% of the caliber of th e extraforaminal nerve Signer Name: Travis Wolfe MD Signed: 03/29/2021 3:21 PM Workstation Name: [id number]
--- NOTE | 2021-03-29 15:29 | Vascular Lab Report ---
DUPLEX DOPPLER ULTRASOUND CAROTID, BILATERAL INDICATION / CLINICAL INFORMATION: stroke. COMPARISON: None available. FINDINGS: RIGHT CAROTID: - PLAQUE ESTIMATE (%): < 50% - CCA velocity: 83 cm/sec. - ICA peak systolic velocity: 57 cm/sec. - ICA/CCA PSV Ratio: 0.7 Right Vertebral Artery: Antegrade flow. LEFT CAROTID: - PLAQUE ESTIMATE (%): < 50% - CCA velocity: 86 cm/sec. - ICA peak systolic velocity: 57 cm/sec. - ICA/CCA PSV Ratio: 1.1 Left Vertebral Artery: Antegrade flow. IMPRESSION: 1. Right Internal Carotid Artery: Less than 50% diameter stenosis. 2. Left Internal Carotid Artery: Less than 50% diameter stenosis. Velocity criteria are extrapolated from diameter data as defined by the Society of Radiologists in Ul trasound Consensus Conference, Radiology 2003; 229;340-346. NO STENOSIS (NORMAL) - Plaque = none; ICA PSV < 125 cm/sec; ICA/CCA PSV Ratio < 2.0 <50% STENOSIS - Plaque < 50%; ICA PSV < 125 cm/sec; ICA/CCA PSV Ratio < 2.0 50-69% STENOSIS - Plaque > 50%; ICA PSV = 125-230 cm/sec; ICA/CCA PSV Ratio = 2.0-4.0 >70% BUT <100% STENOSIS - Plaque > 50%; ICA PSV > 230 cm/sec; ICA/CCA PSV Ratio > 4.0 NEAR OCCLUSION - Plaque = visible lumen; ICA PSV = high/low/none; ICA/CCA PSV Ratio = variable TOTAL OCCLUSION - Plaque = no lumen; ICA PSV = none; ICA/CCA PSV Ratio = N/A Signer Name: Sachin Li MD Signed: 03/29/2021 3:24 PM Workstation Name: [email or web address]
[2021-03-29] MEDS ORDERED: diphenhydrAMINE 25 MG CAP PO ONE (21:34)
[2021-03-30] MEDS ORDERED: hydrALAZINE 20 MG/1 ML INJ IV ONE (01:47)
[2021-03-30 05:23] LABS: Basophils % (Auto) 0.4 % (0.0-1.8); Eosinophils # (Auto) 0.2 K/mm3 (0.0-0.4); Eosinophils % (Auto) 4.5 % (0.0-4.3); Hematocrit 43.8 % (35.5-45.6); Hemoglobin 13.8 gm/dl (11.8-15.2); Lymphocytes # (Auto) 1.9 K/mm3 (1.2-5.4); Lymphocytes % (Auto) 43.6 % (13.4-35.0); Mean Corpuscular HGB Conc 32 % (32-34); Mean Corpuscular Volume 86 fl (84-94); Monocytes # (Auto) 0.3 K/mm3 (0.0-0.8); Monocytes % (Auto) 7.2 % (0.0-7.3); Platelet Count 202 K/mm3 (140-440); Red Blood Count 5.06 M/mm3 (3.65-5.03); Red Cell Distribution Width 15.2 % (13.2-15.2)
[2021-03-30 05:43] LABS: BUN/Creatinine Ratio 10; Blood Urea Nitrogen 14 mg/dL (9-20); Calcium 8.8 mg/dL (8.4-10.2); Hemolysis Index 4
[2021-03-30] MEDS ORDERED: cloNIDine 0.1 MG TAB PO SCH (09:00)
--- NOTE | 2021-03-30 09:00 | Progress Note ---
Hospitalist Physical - Constitutional Vitals: Temp Pulse Resp BP Pulse Ox 98.4 F 69 19 173/117 97 03/30/21 04:00 03/30/21 07:39 03/30/21 04:00 03/30/21 07:39 03/30/21 05:45 General appearance: Present: no acute distress HEART Score - HEART Score Troponin: Troponin T < 0.010 ng/mL (0.00-0.029) 03/29/21 Unknown Results - Labs CBC & Chem 7: 03/30/21 04:51 03/30/21 04:51 Labs: Laboratory Last Values WBC 4.4 K/mm3 (4.5-11.0) L 03/30/21 04:51 RBC 5.06 M/mm3 (3.65-5.03) H 03/30/21 04:51 Hgb 13.8 gm/dl (11.8-15.2) 03/30/21 04:51 Hct 43.8 % (35.5-45.6) 03/30/21 04:51 MCV 86 fl (84-94) 03/30/21 04:51 MCH 27 pg (28-32) L 03/30/21 04:51 MCHC 32 % (32-34) 03/30/21 04:51 RDW 15.2 % (13.2-15.2) 03/30/21 04:51 Plt Count 202 K/mm3 (140-440) 03/30/21 04:51 Lymph % (Auto) 43.6 % (13.4-35.0) H 03/30/21 04:51 [place] % (Auto) 7.2 % (0.0-7.3) 03/30/21 04:51 Eos % (Auto) 4.5 % (0.0-4.3) H 03/30/21 04:51 Baso % (Auto) 0.4 % (0.0-1.8) 03/30/21 04:51 Lymph # (Auto) 1.9 K/mm3 (1.2-5.4) 03/30/21 04:51 [place] # (Auto) 0.3 K/mm3 (0.0-0.8) 03/30/21 04:51 Eos # (Auto) 0.2 K/mm3 (0.0-0.4) 03/30/21 04:51 Baso # (Auto) 0.0 K/mm3 (0.0-0.1) 03/30/21 04:51 Seg Neutrophils % 44.3 % (40.0-70.0) 03/30/21 04:51 Seg Neutrophils # 1.9 K/mm3 (1.8-7.7) 03/30/21 04:51 PT 13.2 Sec. (12.2-14.9) 03/29/21 Unknown INR 0.90 (0.87-1.13) 03/29/21 Unknown APTT 26.8 Sec. (24.2-36.6) 03/29/21 Unknown Thrombin Time 16.7 Sec. (15.1-19.6) 03/29/21 Unknown Sodium 137 mmol/L (137-145) 03/30/21 04:51 Potassium 3.7 mmol/L (3.6-5.0) 03/30/21 04:51 Chloride 102.7 mmol/L (98-107) 03/30/21 04:51 Carbon Dioxide 25 mmol/L (22-30) 03/30/21 04:51 Anion Gap 13 mmol/L 03/30/21 04:51 BUN 14 mg/dL (9-20) 03/30/21 04:51 Creatinine 1.4 mg/dL (0.8-1.3) H 03/30/21 04:51 Estimated GFR > 60 ml/min 03/30/21 04:51 BUN/Creatinine Ratio 10 % 03/30/21 04:51 Glucose 111 mg/dL (75-100) H 03/30/21 04:51 POC Glucose 101 mg/dL (70-105) 03/30/21 07:46 Calcium 8.8 mg/dL (8.4-10.2) 03/30/21 04:51 Troponin T < 0.010 ng/mL (0.00-0.029) 03/29/21 Unknown Urine Opiates Screen Presumptive negative 03/29/21 01:30 Urine Methadone Screen Presumptive negative 03/29/21 01:30 Ur Barbiturates Screen Presumptive negative 03/29/21 01:30 Ur Phencyclidine Scrn Presumptive negative 03/29/21 01:30 Ur Amphetamines Screen Presumptive negative 03/29/21 01:30 U Benzodiazepines Scrn Presumptive negative 03/29/21 01:30 Urine Cocaine Screen Presumptive negative 03/29/21 01:30 U Marijuana (THC) Screen Presumptive positive 03/29/21 01:30 Drugs of Abuse Note Disclamer 03/29/21 01:30 Plasma/Serum Alcohol 0.03 % (0-0.07) 03/28/21 23:21 [place]/IV: Voiding Method Toilet Active Medications - Current Medications Current Medications: Generic Name Dose Route Start Last Admin Trade Name Freq PRN Reason Stop Dose Admin Acetaminophen 650 mg 03/29/21 05:00 Acetaminophen 325 Mg Tab PO Q4H PRN Pain MILD(1-3)/Fever >100.5/PAUL Amlodipine Besylate 10 mg 03/30/21 10:00 Amlodipine 10 Mg Tab PO QDAY [facility] Aspirin 81 mg 03/30/21 10:00 Aspirin 81 Mg Tab Chew PO QDAY [facility] Atorvastatin Calcium 40 mg 03/29/21 22:00 03/29/21 21:53 Atorvastatin 40 Mg Tab PO 40 mg QHS [facility] Administration Bisacodyl 10 mg 03/29/21 05:00 Bisacodyl 10 Mg Rect Supp MN QDAY PRN Constipation Carvedilol 25 mg 03/30/21 10:00 Carvedilol 25 Mg Tab PO BID [facility] Chlorthalidone 25 mg 03/30/21 10:00 Chlorthalidone 25 Mg Tab PO QDAY [facility] Clonidine HCl 0.1 mg 03/30/21 09:00 Clonidine 0.1 Mg Tab PO Q8H [facility] Clopidogrel Bisulfate 75 mg 03/30/21 10:00 Clopidogrel 75 Mg Tab PO QDAY [facility] Doxazosin Mesylate 4 mg 03/30/21 10:00 Doxazosin 4 Mg Tab PO QDAY [facility] Famotidine 20 mg 03/30/21 10:00 Famotidine 20 Mg Tab PO BID [facility] Hydralazine HCl 25 mg 03/30/21 14:00 Hydralazine 25 Mg Tab PO Q8HR [facility] Lorazepam 2 mg 03/29/21 04:35 03/30/21 04:29 Lorazepam 2 Mg/Ml Vial IV 2 mg Q1HR PRN Administration CIWA-Ar 8-15 Lorazepam 4 mg 03/29/21 04:35 Lorazepam 2 Mg/Ml Vial IV Q1HR PRN CIWA-Ar 16-25 Lorazepam 4 mg 03/29/21 04:35 Lorazepam 2 Mg/Ml Vial IV Q15MIN PRN CIWA-Ar >25 Magnesium Hydroxide 30 ml 03/29/21 05:00 Magnesium Hydroxide (Mom) Oral Liqd Udc PO Q4H PRN Constipation Metoclopramide HCl 10 mg 03/29/21 05:00 Metoclopramide 10 Mg Tab PO Q6H PRN Nausea And Vomiting Morphine Sulfate 2 mg 03/29/21 05:00 Morphine 2 Mg/1 Ml Inj IV Q4H PRN Pain, Moderate (4-6) Morphine Sulfate 4 mg 03/29/21 05:00 Morphine 4 Mg/1 Ml Inj IV Q4H PRN Pain , Severe (7-10) Nifedipine 60 mg 03/30/21 10:00 Nifedipine Xl 60 Mg Tab PO DAILY ALEJANDRINA Ondansetron HCl 4 mg 03/29/21 05:00 Ondansetron 4 Mg/2 Ml Inj IV Q8H PRN Nausea And Vomiting Promethazine HCl 25 mg 03/29/21 05:00 Promethazine 25 Mg Rect Supp MN Q6H PRN Nausea And Vomiting Quetiapine Fumarate 200 mg 03/30/21 22:00 Quetiapine 200 Mg Tab PO QHS ALEJANDRINA Sodium Chloride 10 ml 03/29/21 10:00 03/29/21 21:53 Sodium Chloride 0.9% 10 Ml Flush Syringe IV 10 ml BID ALEJANDRINA Administration Sodium Chloride 10 ml 03/29/21 05:00 Sodium Chloride 0.9% 10 Ml Flush Syringe IV PRN PRN LINE FLUSH
[2021-03-30] MEDS ORDERED: amLODIPine 10 MG TAB PO SCH (10:00)
[2021-03-30] MEDS ORDERED: CHLORTHALIDONE 25 MG TAB PO SCH (10:00)
[2021-03-30] MEDS ORDERED: CLOPIDOGREL 75 MG TAB PO SCH (10:00)
[2021-03-30] MEDS ORDERED: ASPIRIN 81 MG TAB CHEW PO SCH (10:00)
[2021-03-30] MEDS ORDERED: DOXAZOSIN 4 MG TAB PO SCH (10:00)
[2021-03-30] MEDS ORDERED: NIFEdipine XL 60 MG TAB PO SCH (10:00)
[2021-03-30] MEDS ORDERED: carvediloL 25 MG TAB PO SCH (10:00)
[2021-03-30] MEDS ORDERED: FAMOTIDINE 20 MG TAB PO SCH (10:00)
--- NOTE | 2021-03-30 13:01 | Progress Note ---
Assessment and Plan Assessment and Plan 56-year-old -Cong[place] male with known history of hypertension, alcohol dependence and a previous CVA without any deficit brought into the emergency room today having been found lying on the ground for unknown period of time. Patient states that he has been dizzy all day but denies any headache denies any diaphoresis. Patient denies any fever or chills, no chest pain or shortness of breath, no nausea vomiting and no abdominal pain. EMS had found several bottles of beer around patient on the field and also found a prescription bottle of Klonopin. He was initially combative towards the paramedics however in the emergency room became more alert and oriented but was found to have slurred speech. Work-up in the emergency room today, alcohol level was 0.03. CTA of the head and neck and CT of the head did not show any acute findings. - Patient Problems # Acute encephalopathy, found on the floor -possibility of seizure can not be excluded -drug related including alcohol? - exam is remarkable for pursuit eye movment impairment and slight residual left side weakness ? remote -MRI brain showed multiple hemorrhagic remote changes in [place] ,mid brain ,Cerebellum and white matter ? related to HTN vs amyloid - pt. is placed on ASA and Plavix ?-- will change to ASA 81 mg and stop Plavix -echo is noted 50-55% EF -Lipitor 40 mg -LDL is pending -PT/ST evaluate # brisk reflexes and unsteady gait -r/o cervical mylopathy -MRI cerviacl spine is unremarkable most likley brisk reflexes are related to brain stem infarct /remote # Alcohol dependence -Patient placed on CIWA protocol. # CKD (chronic kidney disease) -Will request nephrology evaluation and recommendation. # Hyperlipidemia -We will continue on routine home medications and monitor lipid profile. # Hypertension -poor compliance with medication -We will resume routine home medications and monitor vital signs closely # Recreational drug intake -THC # DVT prophylaxis -Patient placed on subcutaneous heparin. # Full code status -Patient is full code. will sign off maintain on ASA 81 mg Lipitor 40 mg pt therapy control BP and comply with medications Subjective Date of service: 03/30/21 Principal diagnosis: weakness and confusion Interval history: status is unchanged he is with slight left side weakness oriented to place and date wants to go home Objective - Vital Sign Vital Signs - 12hr 03/30/21 03/30/21 03/30/21 01:20 04:00 05:45 Temperature 98.4 F Pulse Rate 81 89 Respiratory 19 Rate Blood Pressure 171/124 167/110 Blood Pressure 160/116 [Right] O2 Sat by Pulse 97 97 Oximetry 03/30/21 03/30/21 07:39 10:00 Temperature Pulse Rate 69 Respiratory Rate Blood Pressure 173/117 Blood Pressure [Right] O2 Sat by Pulse 99 Oximetry - General Apperance Constitutional: comfortable - EENT EENT: PERRL, mucous membranes moist - Respiratory Respiratory: lungs clear, rhonchi - Cardiovascular Cardiovascular: regular rate, normal S1, normal S2 Extremities: no peripheral edema bilat, no clubbing, cyanosis - Gastrointestinal Gastrointestinal: normoactive bowel sounds - Integumentary Integumentary: normal - Neurologic Cranial nerve examination: PERRL, EOMI, intact Speech examination: intact Detailed motor examination: other (slight residual left side weakness , and brisk reflexes no clonus , impaired pursuit eye movment no aphasia no visual field deficit , gait not done) - Laboratory Findings CBC and BMP: 03/30/21 04:51 03/30/21 04:51 Abnormal Lab Findings: Abnormal Labs 03/28/21 03/28/21 03/29/21 23:21 23:21 00:58 WBC RBC MCH 27 L Lymph % (Auto) Eos % (Auto) Carbon Dioxide 21 L Creatinine 1.6 H Glucose 159 H POC Glucose 124 H 03/29/21 03/30/21 03/30/21 20:37 04:51 04:51 WBC 4.4 L RBC 5.06 H MCH 27 L Lymph % (Auto) 43.6 H Eos % (Auto) 4.5 H Carbon Dioxide Creatinine 1.4 H Glucose 111 H POC Glucose 107 H
[2021-03-30 13:31] VITALS: BP 156/111
--- NOTE | 2021-03-30 13:42 | Discharge Summary ---
Providers - Providers Date of Admission: 03/29/21 14:32 Attending physician: MICHELLE TAVERA MD 03/29/21 05:00 Consult to Physician [CONS] Routine Comment: Consulting Provider: AL BOUCHER Physician Instructions: Reason For Exam: Slurred Speech, R/O CVA Occupational Therapy Evaluate and Treat [CONS] Routine Comment: Reason For Exam: Neuro deficits Physical Therapy Evaluation and Treat [CONS] Routine Comment: Reason For Exam: Neuro deficits 03/29/21 05:03 Speech Therapy Evaluation and Treat [CONS] Routine Reason For Exam: swallow eval 03/29/21 14:30 Consult to Case Management [CONS] Routine Services Needed at Discharge: Physical Therapy Notified:: therapeutic case manager Additional Physician Instructions: discharge planning, home health w/ PT Primary care physician: [employer] Hospitalization Condition: Stable Disposition: 30 STILL A PATIENT Exam - Constitutional Vitals: Temp Pulse Resp BP Pulse Ox 98.4 F 76 19 156/111 97 03/30/21 04:00 03/30/21 13:26 03/30/21 04:00 03/30/21 13:29 03/30/21 13:26 Plan Care Plan Goals: Please start taking all medications as prescribed. Your blood pressure is high need for you to have a stroke. Please establish care or follow-up with your primary care doctor. Please follow-up with a Child Psychiatrist outpatient. You can ask your primary doctor for a referral. Your echocardiogram shows that you have a small hole between 2 of the chambers in your heart. Follow up with: PRIMARY CARE, [Primary Care Provider] - 7 Days Prescriptions: AtorvaSTATin [Lipitor] 40 mg PO QHS 30 Days #30 tablet QUEtiapine [SEROquel] 200 mg PO QHS 30 Days #30 tab amLODIPine 10 mg PO QDAY 30 Days #30 tablet hydrALAZINE [Apresoline TAB] 25 mg PO Q8HR 90 Days #90 tablet Aspirin [Aspirin BABY CHEW TAB] 81 mg PO QDAY 30 Days #30 tab.chew Doxazosin [Cardura] 4 mg PO QDAY 30 Days #30 tab cloNIDine [Catapres] 0.1 mg PO Q8H 30 Days #90 tablet carvediloL [Coreg] 25 mg PO BID 30 Days #60 tablet NIFEdipine [Nifedipine ER] 60 mg PO DAILY 30 Days #30 tab Famotidine [Pepcid] 20 mg PO BID 30 Days #60 tablet Chlorthalidone [Thalitone] 25 mg PO QDAY 30 Days #30 tablet
[2021-03-30] MEDS ORDERED: hydrALAZINE 25 MG TAB PO SCH (14:00)
--- NOTE | 2021-03-30 14:34 | Electrocardiograph Report ---
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
[2021-03-30] MEDS ORDERED: QUEtiapine 200 MG TAB PO SCH (22:00)
== END 2021-03-30 14:00 | disposition home or self-care (01) | DRG 72 ==
LOC: ED 22:42 → 4A 03-29 05:00 → OBSVTOIN 03-29 14:32
PROVIDERS: ADMIT Internal Medicine Geriatric Medicine; ATTEND Student in an Organized Health Care Education/Training Program
DX: G93.40 Encephalopathy, unspecified (principal); F10.20 Alcohol dependence, uncomplicated; I12.9 Hypertensive chronic kidney disease with stage 1 through stage 4 chronic kidney disease, or unspecified chronic kidney disease; N18.9 Chronic kidney disease, unspecified; E78.5 Hyperlipidemia, unspecified; F20.9 Schizophrenia, unspecified; F17.200 Nicotine dependence, unspecified, uncomplicated; Z79.82 Long term (current) use of aspirin; Y90.9 Presence of alcohol in blood, level not specified
CPT/HCPCS: 36415; 70450; 70496; 70498; 70551; 72141; 80048; 80307; 80320; 82962; 84484; 85025; 85610; 85670; 85730; 93005; 93010; 93306; 93880; 95819; G0378; J3490; Q0162; C8929; G0480; J0360; J2060; J3411; J7030; Q9967